=== PATIENT | male | born 1995 | race Caucasian/White ===

== ENCOUNTER 2025-07-15 14:10 | Emergency (ER) | payer MEDICAID, SELFPAY ==
[2025-07-15 14:11] VITALS: BP 125/78; PULSE 75; RESP 18; TEMP 36.2; O2SAT 100; BMI 31.9
--- NOTE | 2025-07-15 14:26 | EKG12_ITS ---
Test Reason : CP THAT COMES AND GOES Blood Pressure : */* mmHG Vent. Rate : 69 BPM Atrial Rate : 69 BPM P-R Int : 90 ms QRS Dur : 118 ms QT Int : 398 ms P-R-T Axes : 46 62 68 degrees QTcB Int : 426 ms Sinus rhythm with short NM Incomplete right bundle branch block Borderline ECG Confirmed by Star Yanez ([id number]), newspaper or periodical editor ROGELIO LIN ([id number]) on 07/16/2025 8:46:05 AM Referred By: MIAH/KAYCE Confirmed By: Star Yanez
--- NOTE | 2025-07-15 14:29 | ED.VIS.CHEST ---
HPI History of Present Illness Chief Complaint: Chest Pain Narrative Narrative: Chief complaint and HPI: 29-year-old male with no significant past medical history other than intermittent chest pain for multiple years presents for evaluation of chest pain. Patient states he intermittently developed sharp chest pain. States he has been seen by multiple people with about a diagnosis. Patient states that he has been under a lot of stress lately and is wondering if it is stress related. It is mostly midsternal. Wax and wanes. Nothing makes it better or worse. He did not take anything for the pain. He denies any fever, chills, shortness of breath URI symptoms, cough, abdominal pain, nausea, vomiting. Denies any recent trauma or surgery. Denies any recent travel. Review of systems: See HPI Medications: As listed on the chart Allergies: As listed on the chart PFSH: Per chart Vital signs: As listed on the chart. Reviewed. Physical exam: Gen: A&O x3, NAD Head: Normocephalic, atraumatic Eyes: No sclera icterus, conjunctiva clear ENT: Moist mucous membranes Neck: Trachea midline, No JVD CV: RRR, no murmurs, no peripheral edema Resp: Lungs CTA BL, no w/r/c GI: Abd soft, non-distended, non-tender, no r/r/g Musc: Full ROM, no deformity Skin: Warm, dry Neuro: Alert, oriented, grossly intact, sensation intact Psych: Cooperative, appropriate mood and affect PFS PFSH Medical History no medical history Allergy/AdvReac Type Severity Reaction Status Date / Time Penicillins Allergy Hives Verified 07/15/25 14:12 Family History no significant family his Surgical History no surgical history Social History Smoking Status: Never smoker EXAM Physical Exam Const Vital Signs: 07/15/25 14:11 07/15/25 14:22 07/15/25 15:10 Temperature 97.1 F L Temperature Source Temporal Pulse Rate 75 64 Respiratory Rate 18 16 Respiratory Effort Normal Non-Labored Blood Pressure 125/78 H 115/82 H Blood Pressure Mean 93 93 Pulse Ox 100 99 Oxygen Delivery Method Room Air 07/15/25 16:00 Temperature Temperature Source Pulse Rate 61 Respiratory Rate 20 H Respiratory Effort Blood Pressure 115/79 Blood Pressure Mean 91 Pulse Ox 100 Oxygen Delivery Method Room Air MDM MDM MDM Narrative Medical decision making narrative: 29-year-old male with no significant past medical history other than intermittent chest pain for multiple years presents for evaluation of chest pain. Patient states he intermittently developed sharp chest pain. States he has been seen by multiple people with about a diagnosis. Patient states that he has been under a lot of stress lately and is wondering if it is stress related. It is mostly midsternal. Wax and wanes. On presentation, patient no acute distress. Differential diagnosis includes but is not limited to myofascial spasm, stress reaction/response, pleurisy, arrhythmia, suspect less likely ACS, PE, pneumothorax, pneumonia. Aspirin ordered. Cardiac workup ordered. CBC unremarkable without leukocytosis or anemia. D-dimer unremarkable. BMP unremarkable. Troponin unremarkable x2. At this point in time, no clear etiology to explain patient's intermittent chest pain. May be secondary to stress reaction. Follow-up with primary care physician. Return precautions explained. He confirmed understand the plan. Patient was discharged home. EKG: Interpreted by me/EM physician: EKG shows normal sinus rhythm with short RI. Heart rate 69. No QT C prolongation. Diagnostic: Interpreted by me/EM physician: Chest x-ray without pneumonia, effusion, pneumonia, cardiomegaly. Radiology in agreement. Impression: 1. Intermittent chest pain 2. History of intermittent chest pain. Lab Data Labs: Laboratory Results - last 24 hr 07/15/25 07/15/25 14:20 16:10 WBC 5.5 RBC 5.27 Hgb 14.5 Hct 43.9 MCV 83.3 MCH 27.5 MCHC 33.0 RDW Std Deviation 38.5 RDW Coeff of Gonzales 12.7 Plt Count 225 MPV 10.0 Immature Gran % (Auto) 0.200 Neut % (Auto) 56.1 Lymph % (Auto) 31.4 Hoke % (Auto) 7.2 Eos % (Auto) 4.0 Baso % (Auto) 1.1 H Absolute Neuts (auto) 3.1 Absolute Lymphs (auto) 1.71 Nucleated RBC % 0 D-Dimer Quant (PE/DVT) < 0.27 L Sodium 139 Potassium 3.5 Chloride 103 Carbon Dioxide 22.8 Anion Gap 13 BUN 14 Creatinine 1.01 Estim Creat Clear Calc 118.65 Est GFR (MDRD) Non-Af 102 BUN/Creatinine Ratio 13.8 Glucose 114 H Calcium 9.5 Troponin T High Sens < 6 Troponin T Hi Sens 2 Hr < 6 Radiography Diagnostic Testing: Clinical Impression(s) from Imaging Studies Chest X-Ray 07/15/25 14:33 IMPRESSION: As above. Reading Location: [id number] Discharge Plan Triage Chief Complaint: Chest Pain ED Provider: Tony Dhillon Dx/Rx/DC Orders Clinical Impression: Chest pain Instructions: ED Chest Pain, Uncertain Cause Primary Care Provider: Care Physician,No Primary Referrals: Karthikeyan Jameson MD [Med Staff - Active Staff, Family Practice] - 3-5 Days Activity Restrictions/Additional Instructions: Follow-up with primary care physician. Return back to ED symptoms change or worsen. Print Language: Hong [place]er Disposition Disposition: Home, Self Care
--- NOTE | 2025-07-15 14:33 | RAD_ITS ---
PROCEDURE: CHEST PA AND LATERAL 07/15/2025 REASON FOR EXAM: CHEST PAIN TECHNIQUE: Procedure Code: RADCXR Modality: DX Procedure: CHEST PA AND LATERAL FINDINGS: The lungs are clear. The cardiomediastinal silhouette appears unremarkable. No acute osseous abnormality. RAD/Chest PA and Lateral IMPRESSION: As above. Reading Location: [id number]
[2025-07-15 14:34] LABS: Hematocrit 43.9 % (40-54); Hemoglobin 14.5 g/dL (13.0-16.5); Immature Granulocytes Count 0.010 X10^3/uL (0.0-0.0); Mean Corp Hgb Conc 33.0 g/dL (32-36); Mean Corpuscular Volume 83.3 fL (80-94); Mean Platelet Vol. 10.0 fl (6.2-12.0); NRBC Flagged by Analyzer 0 % (0-5); Platelet Count 225 K/mm3 (150-450); RBC Distribution Width CV 12.7 % (11.6-14.6); RBC Distribution Width SD 38.5 fl (35.1-43.9); Red Blood Count 5.27 M/mm3 (4.6-6.2); White Blood Count 5.5 K/mm3 (4.4-11.0)
[2025-07-15 14:47] LABS: D-Dimer Quantitative (DVT/PE) < 0.27 FEU/ug/m (0.27-0.49)
[2025-07-15 14:58] LABS: Troponin T High Sensitivity < 6 ng/L (<=22)
[2025-07-15 15:08] LABS: Anion Gap 13 (5-15); BUN 14 mg/dL (4-19); BUN/Creat Ratio 13.8 RATIO (10-20); Calcium,Total 9.5 mg/dL (7.6-11.0); Carbon Dioxide 22.8 mmol/L (21.0-32.0); Chloride 103 mmol/L (98-108); Estimated Creatinine Clearance 118.65 ml/min (50-250); Glucose 114 mg/dL (70-99); Potassium 3.5 mmol/L (3.3-5.1)
[2025-07-15 15:10] VITALS: BP 115/82; PULSE 64; RESP 16; O2SAT 99
[2025-07-15 16:00] VITALS: BP 115/79; PULSE 61; RESP 20; O2SAT 100
--- NOTE | 2025-07-15 16:17 | CM.ED ---
Social work Reason for referral: no PCP/insurance Referral source: case find SW entered patient's room, introducing self and role at [facility]. Patient hesitantly accepted SW visit, though appeared more at ease when SW expressed reason for visit. Patient confirmed lacking a PCP and insurance, stating need to call [facility] soon to apply for Medicaid. Patient accepted the following resources: [facility] Providers accepting new patients, [facility] information, and how to apply for Medicaid form. Patient denied further needs at this time. Gail Seo, HEAD COUNSELOR, LENS CUTTER
[2025-07-15 16:43] LABS: Troponin T High Sens 2 HR < 6 ng/L (<=22)
[2025-07-15 16:51] VITALS: BP 114/76; PULSE 62; RESP 12; TEMP 36.6; O2SAT 100
== END 2025-07-15 16:52 | disposition home or self-care (01) ==
PROVIDERS: Emergency Provider Surgery; Visit Provider Surgery
DX: R07.9 Chest pain, unspecified (principal)
CPT/HCPCS: 71046; 80048; 84484; 85025; 85379; 93005; 99283; A4216

== ENCOUNTER 2025-07-23 19:24 | Emergency (ER) | payer MEDICAID, SELFPAY ==
[2025-07-23 19:25] VITALS: BP 131/83; PULSE 75; RESP 16; TEMP 36.8; O2SAT 99; BMI 30.6
--- NOTE | 2025-07-23 19:30 | EKG12_ITS ---
Test Reason : Blood Pressure : */* mmHG Vent. Rate : 68 BPM Atrial Rate : 68 BPM P-R Int : 84 ms QRS Dur : 118 ms QT Int : 398 ms P-R-T Axes : 41 70 69 degrees QTcB Int : 423 ms Sinus rhythm with short VT Incomplete right bundle branch block Borderline ECG Confirmed by SHILOH BARTON, JULY ([id number]), city editor ROGELIO LIN ([id number]) on 07/28/2025 6:22:58 AM Referred By: Confirmed By: JULY MATAMOROS MD
--- NOTE | 2025-07-23 19:50 | RAD_ITS ---
PROCEDURE: CHEST 1 VIEW (PORTABLE) 07/23/2025 REASON FOR EXAM: CHEST PAIN TECHNIQUE: Frontal view of the chest. COMPARISON: 07/15/2025 FINDINGS: Lungs/Pleura: Clear. Heart/Mediastinum: Normal in size. Bones/Soft tissues: Unremarkable. RAD/Chest 1 View (Portable) IMPRESSION: No acute cardiopulmonary disease. Reading Location: [id number]
[2025-07-23 20:23] LABS: Hematocrit 46.3 % (40-54); Hemoglobin 15.3 g/dL (13.0-16.5); Immature Granulocytes Count 0.040 X10^3/uL (0.0-0.0); Mean Corp Hgb Conc 33.0 g/dL (32-36); Mean Corpuscular Volume 82.8 fL (80-94); Mean Platelet Vol. 10.2 fl (6.2-12.0); NRBC Flagged by Analyzer 0 % (0-5); Platelet Count 275 K/mm3 (150-450); RBC Distribution Width CV 12.9 % (11.6-14.6); RBC Distribution Width SD 38.8 fl (35.1-43.9); Red Blood Count 5.59 M/mm3 (4.6-6.2); White Blood Count 8.6 K/mm3 (4.4-11.0)
--- OUTSIDE RECORDS SUMMARY | 2025-07-23 20:23 | XMS RPT_ITS | CCD ---
Author Organization [facility] Informat ion Partnership [facility] Care Team Providers Care Gas Usage Meter Clerk Name Role Phone Duncan Gonzalez Unavailable Duncan Gonzalez Unavailable Unavailable Anthony Fernandez Unavailable Unavailable Duncan Gonzalez Primary Care Provider DUNCAN GONZALEZ Primary Care Unavailab KARTHIKEYAN Gastelum Attending Duncan Villalpando Primary Care Provider Kaylyn vailable DUNCAN GONZALEZ Primary Care Unavailab DUNCAN Harris Attending Unavailable Unavailable Primary Care Provider UnavailDuncan Oates Primary Care Provider DUNCAN GONZALEZ Primary Care Unavailab RANDOLPH Lane Attending Dami Obando Primary Care Provider [phone] Unavailable Primary Care Provider Dami Obando MD Primary Care Provider Ludwig Gannon DO Primary Care Provider LUDWIG GANNON Primary Care UnavailDuncan Oates MD Primary Care Provider [phone] Ludwig Gannon DO Primary Care Provider Dami Abdi MD Primary Care Provider [phone] Ludwig Gannon DO Primary Care Provider LUDWIG GANNON Primary Care UnavailBRIANDA Landon Attending UnavailLUDWIG Cox Primary Care UnavailLUDWIG Cox Attending Unavailstephanie Abdi MD, Dami Primary Care Provider [phone] Unavailable Primary Care Provider Unavailabl e PCP, NO Primary Care Unavailable SATNAM FRANZ Referring UnavailSATNAM De Los Santos Attending Unavailstephanie e REBECCA BARNEY Attending Unavailable REBECCA BARNEY Referring Unavailable TRINIDAD, PICKTON Primary Care Unavailable SELF, SELF Referring Unavailable RISTOREBECCA Kendall Attending Unavailable TRINIDAD, DAMI Primary Care Unavailable SELF, SELF Referring Unavailable CECY MIGUEL Attending Unavailable TRINIDAD, PICKTON Primary Care Unavailable CHERI SULLIVAN Attending Unavailable SELF, SELF Referring Unavailable TRINIDAD, DAMI Primary Care Unavailable TRINIDAD, PICKTON Primary Care Unavailable JOSEPH ARTHUR Attending Unavailable IVANNA CLOUD Attending Unavailable TRINIDAD, PICKTON Primary Care Unavailable KISHA KEATING Referring Unavailable TRINIDAD, PICKTON Primary Care Unavailable KISHA KEATING Attending Unavailable KISHA KEATING Attending Unavailable RISTOREBECCA Kendall R Referring Unavailable TRINIDAD, PICKTON Primary Care Unavailable Pcp, No Primary Care Provider [phone] No, Physician Primary Care Provider Unavailabl e TEJA VELIZ Attending Amelia siddiqui NO, PHYSICIAN Primary Care Unavailable NO, PHYSICIAN Primary Care Unavailable CADY JONES Attending Unavailable EBEN GREGORIO Attending Unavailab shelia NO, PHYSICIAN Primary Care Unavailable Allergies Allergy Classification Reported Allergen(s) Allergy Type Date of Onset Reaction(s) Facility Penicillins (antibiotic) (1 source) Penicillins Drug Allergy [address] [place] [address] (20 sources) penicillin g; Translations: [PENICILLIN G] Propensity to adverse reactions to drug 6 [facility] Work Phone: (12 sources) Penicillins; Translations: [Penicillins] Propensity to adverse reactions (disorder) 6 [facility] Repository Medications Current Medications Medication Drug Class(es) Dates Sig (Normalized) Sig (Original) [id number] 200 actuat albuterol 0.09 mg/actuat metered dose inhaler (14 sources) beta2-Adrenergic Agonist Start: 06-08-2020 End: 06-07-2021 take 2 puff(s) by inhalation every four hours as needed for wheezing albuterol 108 (90 Base) MCG/ACT Aero Soln inhaler Inhale 2 puffs every 4 hours as needed for Wheezing. 1 Inhaler 0 06/08/2020 Active albuterol 108 (90 Base) MCG/ACT Aero Soln inhaler (1 source) Start: 06-08-2020 take 2 puff(s) by inhalation every four hours as needed for wheezing albuterol 108 (90 Base) MCG/ACT Aero Soln inhaler Inhale 2 puffs every 4 hours as needed for Wheezing. 1 Inhaler 0 06/08/2020 Active albuterol 90 mcg/actuation inhaler (2 sources) Start: 06-08-2020 take 2 puff(s) by inhalation every four hours as needed albuterol 90 mcg/actuation inhaler Inhale 2 puffs every 4 (four) hours as needed . 0 06/08/2020 Active azithromycin 250 mg oral tablet (7 sources) Macrolide Antimicrobial Start: 06-19-2023 End: 06-24-2023 Azithromycin 250 MG tablet Take by mouth 2 tablets (500 mg) on Day 1, then 1 tablet (250 mg) daily on Days 2-5 6 tablet 0 06/19/2023 06/24/2023 Active Start: 10-12-2021 End: 10-12-2021 azithromycin 250 MG tablet T js by mouth 2 tablets (500 mg) on Day 1, then 1 tablet (250 mg) daily on Days 2-5 6 tablet 0 10/12/2021 10/12/2021 Active Start: 10-18-2018 End: 10-21-2018 azithromycin (ZITHROMAX) 500 MG tablet Indications: Acute non-recurrent maxillary sinusitis Take 1 (one) tablet (500 mg total) by mouth daily Take 1 tablet daily for 3 days. for 3 days . 3 tablet 0 10/18/2018 10/21/2018 Active Start: 12-18-2017 End: 12-22-2017 azithromycin (ZITHROMAX) tab let 500 mg Start: 02-02-2017 End: 03-27-2017 azithromycin (ZITHROMAX) 250 MG tablet 2 p.o. initially and 1 p.o. daily. 6 tablet 0 02/02/2017 03/27/2017 Discontinued benzonatate 100 mg oral capsule (1 source) Non-narcotic Antitussive Start: 06-19-2023 take 1 capsule by mouth three times daily as needed for cough benzonatate 100 MG capsule Take 1 capsule by mouth 3 times daily as needed for Cough. 20 capsule 0 06/19/2023 Active cephalexin 250 mg oral capsule (2 sources) Cephalosporin Antibacterial Start: 12-13-2018 End: 12-23-2018 take 1 capsule by mouth four times daily cephALEXin (KEFLEX) 250 MG capsule Take 1 (one) capsule (250 mg total) by mouth 4 (four) times a day for 10 days . 40 capsule 0 12/13/2018 12/23/2018 Active Start: 12-13-2018 End: 12-13-2018 cephALEXin (KEFLEX) capsule 500 mg cyclobenzaprine hydrochloride 10 mg oral tablet (12 sources) Muscle Relaxant Start: 11-18-2020 take 1 tablet by mouth three times daily as needed for muscle spasms cyclobenzaprine 10 MG tablet Take 1 tablet by mouth 3 times daily as needed for Muscle spasms. 21 tablet 0 11/18/2020 Active Start: 01-17-2018 take 1 tablet by [facility] three times daily as needed for muscle spasms cyclobenzaprine (FLEXERIL) 10 MG tablet Take 1 (one) tablet (10 mg total) by mouth 3 (three) times a day as needed for muscle spasms. 15 tablet 0 01/17/2018 Active doxycycline hyclate 100 mg oral tablet (5 sources) Tetracycline-class Drug Start: 06-08-2021 End: 06-15-2021 take 1 tablet by mouth twice daily doxycycline hyclate (VIBRA-TABS) 100 MG tablet Indications: Sinus congestion Take 1 (one) tablet (100 mg total) by mouth 2 (two) times a day for 7 days . 14 tablet 0 06/08/2021 06/15/2021 Active Start: 11-29-2018 End: 03-21-2019 take 1 tablet by mouth twice daily doxycycline hyclate (VIBRA-TABS) 100 MG tablet Indications: Acute prostatitis Take 1 (one) tablet (100 mg total) by mouth 2 (two) times a day . 20 tablet 0 11/29/2018 03/21/2019 Discontinued (Therapy completed) erythromycin 0.005 mg/mg ophthalmic ointment (5 sources) Macrolide, Macrolide Antimicrobial Start: 02-10-2022 apply 3.5 g into the eye(s) four times daily erythromycin 5 MG/GM Ointment ophthalmic ointment 1/2 inch to affected eye(s) QID for 5-7 days 3.5 g 0 02/10/2022 Active ibuprofen 800 mg oral tablet (19 sources) Nonsteroidal Anti-inflammatory Drug Start: 05-30-2024 End: 06-29-2024 take 1 tablet by mouth every six hours as needed for pain ibuprofen (ADVIL,MOTRIN) 800 MG tablet Take 1 (one) tablet (800 mg total) by mouth every 6 (six) hours as needed for pain . 30 tablet 05/30/2024 06/29/2024 Active Start: 01-17-2018 take 1 tablet by luly th every eight hours as needed ibuprofen (ADVIL,MOTRIN) 800 MG tablet Take 1 (one) tablet (800 mg total) by mouth every 8 (eight) hours as needed for pain. 15 tablet 0 01/17/2018 Active Start: 05-18-2016 End: 03-27-2017 take 1 tablet by mouth every six hours ibuprofen (ADVIL,MOTRIN) 600 MG tablet Take 1 tablet (600 mg total) by mouth every 6 (six) hours as needed for pain. 30 tablet 0 05/18/2016 03/27/2017 Discontinued End: 12-16-2022 ibuprofen 200 mg cap Take by mouth . 0 12/16/2022 Discontinued IBUPROFEN PO Luke e by mouth. 0 Active End: 11-24-2018 take 1 tablet by mouth every six hours as needed ibuprofen (ADVIL,MOTRIN) 400 MG tablet Take 400 mg by mouth every 6 (six) hours as needed for pain. 0 11/24/2018 Discontinued meloxicam 15 mg oral tablet (2 sources) Nonsteroidal Anti-inflammatory Drug Start: 12-20-2022 End: 01-19-2023 take 1 tablet by mouth once daily Meloxicam 15 MG tablet Take 1 tablet by mouth daily. 30 tablet 0 12/20/2022 Active naproxen 250 mg oral tablet (12 sources) Nonsteroidal Anti-inflammatory Drug Start: 11-19-2020 naproxen (NAPROSYN) tablet 500 mg Start: 11-18-2020 take 1 tablet by luly th twice daily as needed naproxen 500 MG tablet Take 1 tablet by mouth 2 times daily as needed. 30 tablet 0 11/18/2020 Active ofloxacin 3 mg/ml ophthalmic solution (2 sources) Quinolone Antimicrobial Start: 02-07-2022 End: 02-14-2022 take 1 drop(s) into the eye(s) every six hours ofloxacin 0.3 % ophthalmic solution Place 1 drop in left eye every 6 hours for 7 days. 3 mL 0 02/07/2022 02/14/2022 Active predniSONE 20 mg oral tablet (10 sources) Start: 12-07-2022 End: 12-12-2022 take 2 tablets by mouth once daily predniSONE 20 MG tablet Take 2 tablets by mouth daily for 5 days. 10 tablet 0 12/07/2022 12/12/2022 Active Start: 02-07-2022 End: 02-12-2022 take 1 tablet by mouth once daily predniSONE 50 MG tablet Take 1 tablet by mouth daily for 5 days. 5 tablet 0 02/07/2022 02/12/2022 Active Start: 12-25-2017 End: 12-30-2017 take 3 tablets by mouth once daily predniSONE (DELTASONE) 20 MG tablet Take 3 (three) tablets (60 mg total) by mouth daily for 5 days. 15 tablet 0 12/25/2017 12/30/2017 Active Start: 12-25-2017 End: 12-25-2017 predniSONE (DELTASONE) table t 60 mg Start: 03-27-2017 End: 03-27-2017 take 1 tablet by mouth once predniSONE (DELTASONE) tab let 40 mg 40 mg, Oral, Once, 03/27/17 at 2310, For 1 dose Given 03/27/2017 23:25 EDT 40 mg Start: 03-27-2017 End: 12-25-2017 predniSONE (DELTASONE) 10 MG tablet Take 4 tablets daily for 3 days, then 3 tablets daily for 3 days, then 2 tablets daily for 3 days, then 1 tablet daily for 3 days. 30 tablet 0 03/27/2017 12/25/2017 Discontinued Start: 03-27-2017 predniSONE (DE LTASONE) 10 MG tablet Take 4 tablets daily for 3 days, then 3 tablets daily for 3 days, then 2 tablets daily for 3 days, then 1 tablet daily for 3 days. 30 tablet 0 03/27/2017 Active Completed/Discontinued Medications Medication Drug Class(es) Dates Sig (Normalized) Sig (Original) aspirin 81 mg chewable tablet (1 source) Platelet Aggregation Inhibitor, Nonsteroidal Anti-inflammatory Drug Start: 06-08-2020 End: 06-08-2020 aspirin chewable tablet 324 mg Start: 06-08-2020 End: 06-08-2020 aspirin chewable tablet 324 mg fluticasone propionate 0.05 mg/actuat metered dose nasal spray (4 sources) Corticosteroid Start: 03-21-2019 End: 06-19-2020 take 2 spray(s) nasal route once daily fluticasone propionate (FLONASE ALLERGY RELIEF) 50 mcg/actuation nasal spray Indications: Rhinorrhea Instill 2 (two) sprays into each nostril daily . 16 g 0 03/21/2019 06/19/2020 Discontinued (Therapy completed) 1 ml ketorolac tromethamine 15 mg/ml cartridge (1 source) Nonsteroidal Anti-inflammatory Drug, Cyclooxygenase Inhibitor Start: 06-08-2020 End: 06-08-2020 ketorolac (TORADOL) injection 15 mg Start: 06-08-2020 End: 06-08-2020 ketorolac (TORADOL) injectio n 15 mg 3 ml sodium chloride 9 mg/ml injection (2 sources) Start: 06-08-2020 End: 06-08-2020 Normal Saline Flush 0.9% injection 5 mL Start: 09-11-2018 End: 09-11-2018 sodium chloride (PF) (NS) fl ush 5 mL Problems Active Problems Problem Classification Problem Date Documented Da te Episodic/Chronic Crushing injury or internal injury (1 source) Crush injury of left great toe; Translations: [Crushing injury of left great toe, initial encounter] Episodic Fracture of lower limb (2 sources) Closed fracture of distal phalanx of great toe; Translations: [Nondisplaced fracture of distal phalanx of right great toe, initial encounter for closed fracture] Onset: 06-14-2024 06-16-2024 Episodic Genitourinary symptoms and ill-defined conditions (3 sources) Increased frequency of urination; Translations: [Frequency of micturition] Onset: 11-24-2018 Episodic Headache; including migraine (2 sources) Headache; including migraine; Translations: [Headache, unspecified] Onset: 08-22-2023 Inflammation; infection of eye (except that caused by tuberculosis or sexually transmitteddisease) (2 sources) Acute infectious conjunctivitis; Translations: [Unspecified acute conjunctivitis, left eye] Episodic Inflammatory conditions of male genital organs (1 source) Acute prostatitis; Translations: [Acute prostatitis] Episodic Open wounds of extremities (1 source) Laceration of finger; Translations: [Laceration of left ring finger without foreign body without damage to nail, initial encounter] Episodic Open wounds of extremities (2 sources) Puncture wound without foreign body, right foot, initial encounter; Translations: [Puncture wound without foreign body, right foot, initial encounter] Onset: 03-18-2025 Episodic Other connective tissue disease (1 source) Pain in hallux; Translations: [Pain in left toe(s)] Episodic Other connective tissue disease (2 sources) Pain of toe of left foot; Translations: [Pain in left toe(s)] Episodic Other connective tissue disease (2 sources) Pain in finger of left hand; Translations: [Pain in left finger(s)] Episodic Other hereditary and degenerative nervous system conditions (20 sources) Essential tremor; Translations: [Essential tremor] Onset: 02-09-2016 02-09-2016 Chronic Other lower respiratory disease (2 sources) Hemoptysis; Translations: [Hemoptysis] Onset: 09-11-2018 Episodic Other lower respiratory disease (1 source) Hemoptysis; Translations: [Hemoptysis] Onset: 09-11-2018 Episodic Other nutritional; endocrine; and metabolic disorders (9 sources) Obese class I; Translations: [Obesity, unspecified] Onset: 10-12-2021 10-12-2021 Chronic Other upper respiratory disease (2 sources) Nasal discharge; Translations: [Rhinorrhea] Episodic Other upper respiratory infections (8 sources) Acute upper respiratory infection; Translations: [Acute upper respiratory infection, unspecified] Onset: 09-11-2018 06-19-2023 Episodic Otitis media and related conditions (1 source) Perforation of right tympanic membrane; Translations: [Unspecified perforation of tympanic membrane, right ear] Episodic Residual codes; unclassified (3 sources) Tobacco user; Translations: [Tobacco Abuse] Onset: 06-19-2020 06-19-2020 Chronic Residual codes; unclassified (3 sources) Disturbance in sleep behavior; Translations: [Sleep disorder, unspecified] Episodic Residual codes; unclassified (1 source) Family history of hereditary disease; Translations: [Family history of other congenital malformations, deformations and chromosomal abnormalities] 07-20-2023 Episodic Residual codes; unclassified (1 source) Family history of other congenital malformations, deformations and chromosomal abnormalities; Translations: [Family history of other congenital malformations, deformations and chromosomal abnormalities] Onset: 07-28-2023 Episodic Residual codes; unclassified (1 source) Carrier of cystic fibrosis gene mutation; Translations: [Cystic fibrosis carrier] Onset: 10-10-2023 10-10-2023 Episodic Skin and subcutaneous tissue infections (1 source) Cellulitis of right lower limb; Translations: [Cellulitis of foot, right] Episodic Substance-related disorders (4 sources) Tobacco dependence syndrome; Translations: [Nicotine dependence, unspecified, uncomplicated] Onset: 06-19-2020 Chronic Unclassified (4 sources) Patient encounter status; Translations: [Well adult exam] Onset: 06-19-2020 06-19-2020 Past or Other Problems Problem Classification Problem Date Documented Date Episodic/Chronic Administrative/socia l admission (20 sources) Patient encounter status; Translations: [Tobacco abuse counseling] Onset: 06-19-2020 Resolved: 12-15-2022 06-19-2020 Episodic Contraceptive and procreative management (11 sources) Contraception status; Translations: [Encounter for sterilization] Onset: 08-27-2020 Resolved: 12-15-2022 08-27-2020 Episodic Headache; including migraine (2 sources) Headache; Translations: [Headache] Onset: 01-21-2023 Episodic Immunizations and screening for infectious disease (4 sources) Encounter for screening for human immunodeficiency virus [HIV]; Translations: [Encounter for screening for other viral diseases] Onset: 02-18-2022 Episodic Nausea and vomiting (2 sources) Vomiting; Translations: [Vomiting] Onset: 01-21-2023 Episodic Nonspecific chest pain (1 source) Chest pain; Translations: [Other chest pain] Episodic Other connective tissue disease (2 sources) Pain in left finger(s); Translations: [Pain in left finger(s)] Onset: 12-20-2022 Episodic Other injuries and conditions due to external causes (2 sources) Other injury of unspecified body region, initial encounter; Translations: [Other injury of unspecified body region, initial encounter] Onset: 12-20-2022 Episodic Other screening for suspected conditions (not mental disorders or infectious disease) (4 sources) Encounter for screening for diabetes mellitus; Translations: [Encounter for screening for lipoid disorders] Onset: 02-18-2022 Episodic Other upper respiratory disease (12 sources) Congestion of nasal sinus; Translations: [Nasal congestion] Onset: 06-07-2021 Resolved: 12-15-2022 Episodic Residual codes; unclassified (2 sources) Chronic back pain ; Translations: [Chronic back pain] Onset: 06-19-2020 06-19-2020 Episodic Residual codes; unclassified (11 sources) Tobacco user; Translations: [Tobacco use] Onset: 06-19-2020 06-19-2020 Episodic Residual codes; unclassified (2 sources) Sleep disorder, unspecified; Translations: [Sleep disorder, unspecified] Onset: 02-18-2022 Episodic Spondylosis; intervertebral disc disorders; other back problems (16 sources) Chronic low back pain; Translations: [Chronic back pain ] Onset: 06-19-2020 06-19-2020 Episodic Sprains and strains (3 sources) Low back strain; Translations: [Sprain of unspecified ligament of right ankle, initial encounter] Onset: 01-05-2023 Episodic Superficial injury; contusion (4 sources) Contusion of finger; Translations: [Subungual hematoma of great toe of left foot] Onset: 05-30-2024 Episodic Unclassified (1 source) Left wrist pain Results Test Name Value Interpretation Reference Range Facil ity ED Prov Noteon 03-18-2025 ED Prov Note ED PROVIDER NOTE [facility] EMERGENCY DEPARTMENT NAME: Lesley Heller AGE: 29 y.o. : 1995 VISIT DATE: 03/18/2025 CSN: [id number] PCP: No, Physician Chief Complaint Patient presents with Foot Injury Triage note: Pt states he stepped on an old nail and it went through his boot about 30 mins ago. Last tetanus shot reported in 2013 Foot Injury Past Medical History: Diagnosis Date ADHD 13 yo stopped taking it Back pain Dyslexia Heart murmur Knee pain Right forearm fracture 1st grade Toeing-in Tremors of nervous system Past Surgical History: Procedure Laterality Date ADENOIDECTOMY TONSILLECTOMY Family History Problem Relation Age of Onset Hypertension Mother Restless legs syndrome Mother Diabetes Maternal Grandmother Heart disease Paternal Grandfather Social History [1] No current outpatient medications on file prior to encounter. Allergies[2] Review of Systems Patient Vitals for the past 24 hrs: BP Temp Temp src Pulse Resp SpO2 Height Weight 03/18/25 2230 (!) 155/74 98.1 degrees F (36.7 degrees C) Temporal 88 18 97 % 5' 8 97.5 kg (215 lb) Physical Exam Vitals and nursing note reviewed. Constitutional: General: He is awake. He is not in acute distress. Appearance: Normal appearance. He is well-developed. He is not toxic-appearing or diaphoretic. Eyes: Extraocular Movements: Extraocular movements intact. Comments: PER, unremarkable size Neck: Trachea: No tracheal deviation. Musculoskeletal: Cervical back: Normal range of motion. Feet: Pulmonary: Effort: Pulmonary effort is normal. No respiratory distress. Feet: Comments: Puncture wound is small. There is no bleeding or tissue loss. No significant tenderness to palpation. No other injury. Skin: General: Skin is warm and dry. Capillary Refill: Capillary refill takes 2 to 3 seconds. Findings: Lesion present. Neurological: General: No focal deficit present. Mental Status: He is alert. Motor: No abnormal muscle tone. Coordination: Coordination normal. Comments: Awake, alert and appropriate. Psychiatric: Mood and Affect: Mood normal. Behavior: Behavior normal. Behavior is cooperative. Laboratory & Radiographic Imaging (if done): No results found for this visit on 03/18/25. No orders to display Procedures Medical Decision Making The patient has been informed that they may have pre-hypertension or hypertension based on a blood pressure reading in the Emergency Department. I recommend that the patient call the primary care provider listed on their discharge instructions or a physician of their choice as soon as possible to arrange follow-up in the next 4 weeks for further evaluation of possible pre-hypertension or hypertension. . Clinical Impression: 1. Puncture wound of right foot, initial encounter ED Disposition ED Disposition Discharge Condition Stable Comment Lesley Heller discharged to home/self care in stable condition. Follow-up Information 1. [facility] Emergency Department. Specialty: Emergency Medicine Why: As needed [address] [facility] [id number] Contact information for after-discharge care Follow-up information has not been specified. New Prescriptions ciprofloxacin HCl (CIPRO) 500 MG tablet Take 1 (one) tablet (500 mg total) by mouth 2 (two) times a day for 3 days . [1] Social History Socioeconomic History Marital status: Tobacco Use Smoking status: Every Day Current packs/day: 0.50 Average packs/day: 0.5 packs/day for 11.0 years (5.5 ttl pk-yrs) Types: Cigarettes Smokeless tobacco: Former Types: Chew Vaping Use Vaping status: Every Day Substances: Nicotine Devices: Disposable Substance and Sexual Activity Alcohol use: Yes Alcohol/week: 1.0 - 2.0 standard drink of alcohol Types: 1 - 2 Cans of beer per week Comment: social drinker, every 3 months Drug use: No Sexual activity: Yes Partners: Female Social Drivers of Health Financial Resource Strain: Low Risk (02/18/2022) Overall Financial Resource Strain (CARDIA) Difficulty of Paying Living Expenses: Not hard at all Food Insecurity: Food Insecurity Present (02/18/2022) Hunger Vital Sign Worried About Running Out of Food in the Last Year: Sometimes true Ran Out of Food in the Last Year: Sometimes true Transportation Needs: No Transportation Needs (02/18/2022) PRAPARE - Transportation Lack of Transportation (Medical): No Lack of Transportation (Non-Medical): No Social Connections: Moderately Isolated (02/18/2022) Social Connection and Isolation Panel [NHANES] Frequency of Communication with Friends and Family: More than three times a week Frequency of Social Gatherings with Friends and Family: More than three times a week Attends [employer] Services: Never Active Member of Clubs or Organizations: No Attends Club or Organization Meetings: (more content not included)... Normal [facility] ED Prov Noteon 05-30-2024 ED Prov Note ED PROVIDER NOTE [facility] EMERGENCY DEPARTMENT NAME: Lesley Heller AGE: 28 y.o. : 1995 VISIT DATE: 05/30/2024 CSN: [id number] PCP: No, Physician Chief Complaint Patient presents with Toe Injury HPI 28 years old white male presented to the emergency room with toe pain in his right foot after he kicked a table because he was angry denies any injuries anywhere else denies any open wound no active bleeding Past Medical History: Diagnosis Date ADHD 13 yo stopped taking it Back pain Dyslexia Heart murmur Knee pain Right forearm fracture 1st grade Toeing-in Tremors of nervous system Past Surgical History: Procedure Laterality Date ADENOIDECTOMY TONSILLECTOMY Family History Problem Relation Age of Onset Hypertension Mother Restless legs syndrome Mother Diabetes Maternal Grandmother Heart disease Paternal Grandfather Social History Socioeconomic History Marital status: Tobacco Use Smoking status: Every Day Current packs/day: 0.50 Average packs/day: 0.5 packs/day for 11.0 years (5.5 ttl pk-yrs) Types: Cigarettes Smokeless tobacco: Former Types: Chew Vaping Use Vaping status: Every Day Substances: Nicotine Devices: Disposable Substance and Sexual Activity Alcohol use: Yes Alcohol/week: 1.0 - 2.0 standard drink of alcohol Types: 1 - 2 Cans of beer per week Comment: social drinker, every 3 months Drug use: No Sexual activity: Yes Partners: Female Social Determinants of Health Financial Resource Strain: Low Risk (02/18/2022) Overall Financial Resource Strain (CARDIA) Difficulty of Paying Living Expenses: Not hard at all Food Insecurity: Food Insecurity Present (02/18/2022) Hunger Vital Sign Worried About Running Out of Food in the Last Year: Sometimes true Ran Out of Food in the Last Year: Sometimes true Transportation Needs: No Transportation Needs (02/18/2022) PRAPARE - Transportation Lack of Transportation (Medical): No Lack of Transportation (Non-Medical): No Social Connections: Moderately Isolated (02/18/2022) Social Connection and Isolation Panel [NHANES] Frequency of Communication with Friends and Family: More than three times a week Frequency of Social Gatherings with Friends and Family: More than three times a week Attends Catholic Services: Never Active Member of Clubs or Organizations: No Attends Club or Organization Meetings: Never Marital Status: No current outpatient medications on file prior to encounter. Allergies Allergen Reactions Penicillin G Hives Review of Systems All other systems reviewed and are negative. Patient Vitals for the past 24 hrs: BP Temp Temp src Pulse Resp SpO2 Height Weight 05/30/24 0138 131/89 98.6 degrees F (37 degrees C) Temporal 80 16 99 % 5' 8 104.3 kg (230 lb) Physical Exam Cardiovascular: Rate and Rhythm: Normal rate and regular rhythm. Pulses: Normal pulses. Heart sounds: Normal heart sounds. Musculoskeletal: Comments: Right foot no obvious deformity no swelling has little bit bruises and tenderness on palpation of the third and fourth toe no obvious deformity has intact neurovascular system Pulmonary: Effort: Pulmonary effort is normal. Breath sounds: Normal breath sounds. Skin: General: Skin is warm. Coloration: Skin is not jaundiced. Findings: Bruising present. Laboratory & Radiographic Imaging (if done): No results found for this visit on 05/30/24. XR Foot Right 3+ Views (Standard) (Results Pending) Procedures Medical Decision Making Patient was angry and had the disc with right foot has pain in the right third and fourth toe otherwise no obvious injury anywhere else in his body physical Exam Cardiovascular: Rate and Rhythm: Normal rate and regular rhythm. Pulses: Normal pulses. Heart sounds: Normal heart sounds. Musculoskeletal: Comments: Right foot no obvious deformity no swelling has little bit bruises and tenderness on palpation of the third and fourth toe no obvious deformity has intact neurovascular system Pulmonary: Effort: Pulmonary effort is normal. Breath sounds: Normal breath sounds. Skin: General: Skin is warm. Coloration: Skin is not jaundiced. Findings: Bruising present. Amount and/or Complexity of Data Reviewed Discussion of management or test interpretation with external provider(s): Contusion right foot The patient has been informed that they may have pre-hypertension or hypertension based on a blood pressure reading in the Emergency Department. I recommend that the patient call the primary care provider listed on their discharge instructions or a physician of their choice as soon as possible to arrange follow-up in the next 4 weeks for further evaluation of possible pre-hypertension or hypertension. . Clinical Impression: 1. Contusion of right foot, initial encounter ED Disposition ED Disposition Discharge Condition S (more content not included)... Normal [facility] XR FOOT RIGHT 3+ VIEWS (CINTHIA JOSHI)on 05-30-2024 XR FOOT RIGHT 3+ VIEWS (STANDARD) EXAMINATION: XR FOOT RIGHT 3+ VIEWS (STANDARD) 05/30/2024 2:00 am HISTORY: toe injury Injury/Trauma or Illness?:Injury/Tr auma How long have you had these symptoms (acute/chronic)?:A cute Reason for exam?:pt kicked a couch yesterday; pain and bruising to 3rd and 4th toes History of cancer?:unk Surgeries, chemotherapy, or radiation?:unk [id number] Contusion of right foot, initial encounter COMPARISON: Right foot radiographs dated December 13, 2018. TECHNIQUE: Right foot, 3 views. FINDINGS: There is a nondisplaced intra-articular fracture through the base of the right great toe distal phalanx laterally. There is no evidence of dislocation of the right foot. Bone mineralization is normal. The articular surfaces and joint spaces of the right foot are well preserved. There is no evidence of osseous erosion or destruction of the visualized osseous structures of the right foot. There is mild soft tissue swelling about the right great toe. IMPRESSION: 1. There is a nondisplaced intra-articular fracture through the base of the right great toe distal phalanx laterally. There is mild soft tissue swelling about the right great toe. Workstation ID: [id number] Dictated by: SHIVAM PEREA V on Ricarda May 30, 2024 2:43:43 AM EDT Transcribed by: SHIVAM PEREA V on Ricarda May 30, 2024 2:43:43 AM EDT Finalized by: SHIVAM PEREA V on [facility] May 30, 2024 2:43:43 AM EDT Normal [facility] Comment on above: Order Comment: Injur y/Trauma or Illness?:Injury/Trauma How long have you had these symptoms (acute/chronic)?:Acute Reason for exam?:pt kicked a couch yesterday; pain and bruising to 3rd and 4th toes History of cancer?:unk Surgeries, chemotherapy, or radiation?:unk Type of Exam?:Initial Mechanism of injury?:kicking CT HEAD WITHOUT CONTRASTon 0 08-22-2023 CT HEAD WITHOUT CONTRAST CLINICAL INDICATION: sudden onset head/post scalp pain, neuro intact EXAM DESCRIPTION: CT HEAD WITHOUT CONTRAST 08/22/2023 7:47 am COMPARISON: No priors/comparison/ additional images are available TECHNIQUE: Multiple contiguous 5 mm axial sections were obtained through the brain without contrast material. Dose modulation, iterative reconstruction, and/or weight based dosing was utilized when appropriate to reduce radiation dose to as low as reasonably achievable. FINDINGS: Cisternal spaces are normal. No hemorrhage hematoma or mass is identified. Ortiz-white interface is normal. Osseous structures are unremarkable. Scalp soft tissues are unremarkable. Cranial cervical junction is normal. IMPRESSION: Negative Normal [facility] Comment on above: Order Comment: Vet n o XR FINGER 2ND LEFTon 023 XR FINGER 2ND LEFT CLINICAL INDICATION: fx mgmt EXAM DESCRIPTION: XR FINGER 2ND LEFT 12/20/2022 9:44 am COMPARISON: 12/07/2022 TECHNIQUE: Three views left index finger FINDINGS: Visualized osseous structures are intact with no focal destructive osseous lesion or evidence for fracture. There is no soft tissue calcification or radiopaque foreign body. IMPRESSION: No radiographic evidence to suggest acute osseous abnormality. Normal [facility] Comment on above: Order Comment: Vet n o XR Finger second - left View son 12-20-2022 IMPRESSION: No radiographic evidence to suggest acute osseous abnormality. RADIOLOGY CLINICAL INDICATION: fx mgmt EXAM DESCRIPTION: XR FINGER 2ND LEFT 12/20/2022 9:44 am COMPARISON: 12/07/2022 TECHNIQUE: Three views left index finger FINDINGS: Visualized osseous structures are intact with no focal destructive osseous lesion or evidence for fracture. There is no soft tissue calcification or radiopaque foreign body. RADIOLOGY Lesley Londono MD - 12/20/2022 CLINICAL INDICATION: fx mgmt EXAM DESCRIPTION: XR FINGER 2ND LEFT 12/20/2022 9:44 am COMPARISON: 12/07/2022 TECHNIQUE: Three views left index finger FINDINGS: Visualized osseous structures are intact with no focal destructive osseous lesion or evidence for fracture. There is no soft tissue calcification or radiopaque foreign body. IMPRESSION IMPRESSION: No radiographic evidence to suggest acute osseous abnormality. [employer] Phone: Radiology Study observation (narrative) [facility] [place] Phone: XR Finger second - left View sOrdered By: Lesley Londono on 12-20-2022 [facility] [place] Phone: POC Urinalysis Dipstick, Aut oOrdered By: Kylee Duong on 12-16-2022 Bilirubin Ql (U) Negative Negative [facility] Glucose Ql (U) Negative Normal, Negat cole mg/dL [facility] Hemoglobin Ql (U) Negative Negative [facility] Interpretation and review of laboratory results Abnormal [facility] Ketones Ql (U) Negative Negative mg/dL [facility] Leukocyte esterase Test strip Ql (U) Negative Negative [facility] Nitrite Ql (U) Negative Negative [facility] pH (U) 5.5 [pH] 5.0 - 7.0 [facility] Protein Ql (U) Negative Negative mg/dL [facility] Specific gravity (U) [Rel density] 1.030 Abnormal 1.005 - 1.025 [facility] Urobilinogen Qn (U) 0.2 mg/dL <2.0, 0. 2, Normal, Negative, 1.0, 2.0, <1.[address] [facility] XR FINGER 2ND LEFTon 023 XR FINGER 2ND LEFT CLINICAL INDICATION: 3 months left finger pain with no injury EXAM DESCRIPTION: XR FINGER 2ND LEFT 12/07/2022 8:15 pm COMPARISON: No comparison studies. TECHNIQUE: Three views left next finger. FINDINGS: Visualized osseous structures are intact with no focal destructive osseous lesion or evidence for fracture. There is no soft tissue calcification or radiopaque foreign body. IMPRESSION: No radiographic evidence to suggest acute osseous abnormality. Normal [facility] Comment on above: Order Comment: Vet n o XR Finger second - left View son 12-07-2022 IMPRESSION: No radiographic evidence to suggest acute osseous abnormality. RADIOLOGY CLINICAL INDICATION: 3 months left finger pain with no injury EXAM DESCRIPTION: XR FINGER 2ND LEFT 12/07/2022 8:15 pm COMPARISON: No comparison studies. TECHNIQUE: Three views left next finger. FINDINGS: Visualized osseous structures are intact with no focal destructive osseous lesion or evidence for fracture. There is no soft tissue calcification or radiopaque foreign body. RADIOLOGY Lesley Londono MD - 12/07/2022 CLINICAL INDICATION: 3 months left finger pain with no injury EXAM DESCRIPTION: XR FINGER 2ND LEFT 12/07/2022 8:15 pm COMPARISON: No comparison studies. TECHNIQUE: Three views left next finger. FINDINGS: Visualized osseous structures are intact with no focal destructive osseous lesion or evidence for fracture. There is no soft tissue calcification or radiopaque foreign body. IMPRESSION IMPRESSION: No radiographic evidence to suggest acute osseous abnormality. [employer] Phone: Radiology Study observation (narrative) [employer] Phone: XR Finger second - left View sOrdered By: Lesley Londono on 12-07-2022 [employer] Phone: XR Foot - left 3 Viewson IMPRESSION: No radiographic evidence to suggest acute osseous abnormality. RADIOLOGY CLINICAL INDICATION: Crush injury EXAM DESCRIPTION: XR FOOT LEFT 3 VIEWS 11/16/2021 10:32 am COMPARISON: 02/13/2021 TECHNIQUE: Three views left foot FINDINGS: Visualized osseous structures are intact with no focal destructive osseous lesion or evidence for fracture. There is no soft tissue calcification or radiopaque foreign body. RADIOLOGY Lesley Londono MD - 11/16/2021 CLINICAL INDICATION: Crush injury EXAM DESCRIPTION: XR FOOT LEFT 3 VIEWS 11/16/2021 10:32 am COMPARISON: 02/13/2021 TECHNIQUE: Three views left foot FINDINGS: Visualized osseous structures are intact with no focal destructive osseous lesion or evidence for fracture. There is no soft tissue calcification or radiopaque foreign body. IMPRESSION IMPRESSION: No radiographic evidence to suggest acute osseous abnormality. [facility] Radiology Study observation (narrative) [facility] XR Foot - left 3 ViewsOrdere d By: Lesley Londono on 11-16-2021 [facility] Work Phone: COVID-19, MOLECULARon 2020 SARS-CoV-2 (COVID-19) RNA MARCIO+probe Ql (Unsp spec) Not detected Normal Not Detected [facility] Comment on above: Result Comment: This test was performed under the FDA's Emergency Use Authorization (EUA). Testing was performed using the Heather SARS-CoV-2 RT-PCR assay on the [employer] Heather 6800 System. This test has not been approved for use in asymptomatic patients and its performance in this patient population has not been evaluated. Negative results do not rule out the presence of SARS-CoV-2/COVID-19. Fact sheets for this EUA can be found at the following links: For Healthcare Providers: https://www.fda.gov/media/299584/download For Patients: https://www.fda.gov/media/123876/download Performed By: #### L [id number] #### [facility] [address] [place] [address] Igor Cottrell M.D. [id number] Laboratory - Microbiology an d Antimicrobial susceptibilityOrdered By: Anthony Ware on 06-07-2021 SARS-CoV-2 (COVID-19) RNA MARCIO+probe Ql (Resp) Not detected Not Detected [facility] Comment on above: This test was perfor med under the FDA's Emergency Use Authorization (EUA). Testing was performed using the Heather SARS-CoV-2 RT-PCR assay on the [employer] Heather 6800 System. This test has not been approved for use in asymptomatic patients and its performance in this patient population has not been evaluated. Negative results do not rule out the presence of SARS-CoV-2/COVID-19. Fact sheets for this EUA can be found at the following links: For Healthcare Providers: https://www.fda.gov/media/782156/download For Patients: https://www.fda.gov/media/768191/download SARS-CoV-2 (COVID-19) RNA NA A+probe Ql (Resp)Ordered By: Anthony Ware on 06-07-2021 Interpretation and review of laboratory results Normal [facility] XR FOOT LEFT 3 VIEWSOrdered By: Ludwig Polanco on 02-14-2021 IMPRESSION: No acute bony abnormality. [facility] CLINICAL INDICATION: Trauma EXAM DESCRIPTION: XR FOOT LEFT 3 VIEWS 02/13/2021 11:12 pm COMPARISON: No priors/comparison/ additional images are available TECHNIQUE: Three views of the left foot were obtained. FINDINGS: No fracture, dislocation or joint space abnormality is identified. [facility] User, Interfaces - 02/14/2021 7:45 AM EDT CLINICAL INDICATION: Trauma EXAM DESCRIPTION: XR FOOT LEFT 3 VIEWS 02/13/2021 11:12 pm COMPARISON: No priors/comparison/ additional images are available TECHNIQUE: Three views of the left foot were obtained. FINDINGS: No fracture, dislocation or joint space abnormality is identified. IMPRESSION IMPRESSION: No acute bony abnormality. [facility] CBC, EDIF, PLATELETOrdered B y: Alicia Ribera on 06-08-2020 Basophils (Bld) [#/Vol] 0.05 10*3/uL 0 - 0.2 10 *3/uL [facility] Basophils/100 WBC (Bld) 1.0 % 0 - 2 % M [facility] Eosinophils (Bld) [#/Vol] 0.17 10*3/uL 0 - 0.5 10*3/uL [facility] Eosinophils/100 WBC (Bld) 3.3 % 0 - 4 % [facility] Erythrocyte distribution width (RBC) [Ratio] 13.5 % 11.5 - 14.5 % [facility] Hematocrit (Bld) [Volume fraction] 46.2 % 42 - 54 % [facility] Hemoglobin (Bld) [Mass/Vol] 14.9 g/dL 14 - 18 g/dL [facility] Lymphocytes (Bld) [#/Vol] 1.82 10*3/uL 1 - 4.8 10*3/uL [facility] MCH (RBC) [Entitic mass] 27.3 pg 25.6 - 32.2 pg [facility] MCHC (RBC) [Mass/Vol] 32.3 g/dL 32 - 36 g/dL [facility] MCV (RBC) [Entitic vol] 84.8 fL 82 - 98 fL [facility] Monocytes (Bld) [#/Vol] 0.47 10*3/uL 0.2 - 1.2 10*3/uL [facility] Monocytes/100 WBC (Bld) 9.0 % 5 - 11 % [facility] Neutrophils (Bld) [#/Vol] 2.69 10*3/uL 2 - 7.5 10*3/uL [facility] Nucleated RBC/100 WBC (Bld) [Ratio] 0.0 % [facility] Platelet mean volume (Bld) [Entitic vol] 10.1 fL 9.4 - 12.4 fL [facility] Platelets (Bld) [#/Vol] 221 10*3/uL 150 - 400 10*3/uL [facility] RBC (Bld) [#/Vol] 5.45 10*6/uL 4.3 - 5.7 10*6/uL [facility] RBC, NUCLEATED, ABSOLUTE 0.00 [facility] Segmented neutrophils/100 WBC (Bld) 51.6 % 36 - 66 % [facility] Variant lymphocytes Auto Ql (Bld) 34.9 % 24 - 44 % [facility] WBC (Bld) [#/Vol] 5.21 10*3/uL 4.8 - 10.8 10*3/uL [facility] COMPREHENSIVE METABOLIC PANE LOrdered By: Alicia Ribera on 06-08-2020 Albumin [Mass/Vol] 3.9 g/dL 3.5 - 5 g/dL [facility] ALP [Catalytic activity/Vol] 57 U/L 38 - 126 U/L [facility] ALT [Catalytic activity/Vol] 16 U/L Low 21 - 72 U/L [facility] Anion gap [Moles/Vol] 6.5 mmol/L 10 - 14 mmol/L [facility] AST [Catalytic activity/Vol] 22 U/L 17 - 59 U/L [facility] Bilirubin [Mass or moles/Vol] 0.3 mg/dL 0.2 - 1.2 mg/dL [facility] Calcium [Mass/Vol] 8.9 mg/dL 8.4 - 10.2 mg/dL [facility] Chloride [Moles/Vol] 107 mmol/L 100 - 110 mmol/ L [facility] CO2 [Moles/Vol] 26.0 mmol/L [facility] Creatinine [Mass/Vol] 0.80 mg/dL 0.8 - 1.5 mg/d L [facility] GFR/1.73 sq M.predicted (S/P/Bld) [Vol rate/Area] 124 mL/min >60 mL/min/1.73 m2 [facility] Comment on above: Reference Range: 59 to 44 - Mild to moderate loss of kidney function 44 to 30 - Moderate to Severe loss of kidney function 29 to 15 - Severe loss of kidney function <15 - Kidney failure The estimated GFR is based on the MDRD formula for assessment of stable or slowly declining kidney function in adults. Estimated GFR values are not accurate in: -Obese (BMI>34) OR underweight (BMI<20) people -The very old OR very young -Races other than or -Malian -People with acute illnesses, amputations, or acute kidney failure. Estimated GFR should be interpreted in clinical context and an alternative method such as a timed urine collection for creatinine clearance used to verify questionable results. (Ref. National Kidney Foundation 2015) Glucose [Mass/Vol] 124 mg/dL High 70 - 100 mg/dL [facility] Interpretation and review of laboratory results Abnormal [facility] Potassium [Moles/Vol] 3.9 mmol/L 3.5 - 5 mmol/L [facility] Protein [Mass/Vol] 6.4 g/dL 6 - 8.2 g/dL [facility] Sodium [Moles/Vol] 140 mmol/L 136 - 145 mmol/L [facility] Urea nitrogen/Creatinine [Mass ratio] 17 mg/dL 7 - 22 mg/dL [facility] D-DIMER,QUANTITATIVEOrdered By: Alicia Ribera on 06-08-2020 Fibrin D-dimer DDU (PPP) [Mass/Vol] <0.19 [facility] Comment on above: 09-05-16 D-DIMER AMIRA TITATIVE REFERENCE INTERVAL: Anticoagulant therapy decreases the D-dimer levels and may generate false negative results Quantitative D-dimer performed on the [employer] [id number] analyzer. Cutoff value is 0.50 mg/L FEU in an attempt to obtain a negative predictive value close to 100 percent. (for DVT and PE). Non-VTE causes of elevated D-dimer include: trauma, NV, stroke, sepsis, DIC, active collagen diseases, post-surgery, cancer, thrombolytic therapy, large hematoma, diabetes, and post-. Clinical data and imaging studies may be used in order to confirm a positive D-dimer test. The above D-dimer assay may be used for DIC screening in conjunction with other coagulation procedures (PT, PTT, fibrinogen and platelet count). Pathology consultation is available. 09-05-16 ECGOrdered By: Alicia Stanford iff on 06-08-2020 [facility] Test Date: 2020-06-08 Pat Name: Lesley Heller Department: Room: Gender: Unknown Rn Orthopaedics: : Requested By: Order Number: [id number] Reading MD: Morris Cano Measurements Intervals [place] Rate: 72 P: 51 MO: 84 QRS: 72 QRSD: 118 T: 64 QT: 394 QTc: 434 Interpretive Statements Sinus rhythm with short MO Incomplete right bundle branch block Borderline ECG Electronically Signed On 06-08-2020 14:13:32 EDT by Morris Cano [facility] User, 06/08/2020 2:13 PM EDT [facility] Test Date: 2020-06-08 Pat Name: Lesley Heller Department: Room: Gender: Unknown Rn Orthopaedics: : Requested By: Order Number: [id number] Baldemar BARTON: Morris Cano Measurements Intervals [place] Rate: 72 P: 51 MO: 84 QRS: 72 QRSD: 118 T: 64 QT: 394 QTc: 434 Interpretive Statements Sinus rhythm with short MO Incomplete right bundle branch block Borderline ECG Electronically Signed On 06-08-2020 14:13:32 EDT by Morris Cano [facility] LIPASEOrdered By: Alicia servin on 06-08-2020 Lipase [Catalytic activity/Vol] 46 U/L 23 - 300 U/L [facility] TROPONINOrdered By: Alicia Ribera on 06-08-2020 Troponin I.cardiac [Mass/Vol] ng/mL 0.012 - 0.12 ng/mL [facility] Comment on above: REFERENCE RANGE IS 0.012 - 0.120 ng/ml cTnI - The cutoff of 0.120 ng/ml is recommended for diagnosis of AMI, yielding optimal performance of 95% sensitivity and 93% specificity. XR CHEST PA AND LATERALOrder ed By: Alicia Ribera on 06-08-2020 IMPRESSION: Negative chest [facility] CLINICAL INDICATION: chest pain EXAM DESCRIPTION: XR CHEST PA AND LATERAL 06/08/2020 6:49 am COMPARISON: 04/02/2020 TECHNIQUE: FINDINGS: The size and contour of the heart and mediastinum are normal. The lungs are clear. [facility] User, Interfaces - 06/08/2020 7:17 AM EDT CLINICAL INDICATION: chest pain EXAM DESCRIPTION: XR CHEST PA AND LATERAL 06/08/2020 6:49 am COMPARISON: 04/02/2020 TECHNIQUE: FINDINGS: The size and contour of the heart and mediastinum are normal. The lungs are clear. IMPRESSION IMPRESSION: Negative chest [facility] XR-B-READ CHEST X-RAY 1 VIEW on 04-02-2020 XR-B-READ CHEST X-RAY 1 VIEW CLINICAL INDICATION: History and physical examination, pre-employment EXAM DESCRIPTION: XR-B-READ CHEST X-RAY 1 VIEW 04/02/2020 1:21 pm COMPARISON: 02/11/2013 TECHNIQUE: B read chest x-ray FINDINGS: Please see separate B read interpretation form for detailed description of findings. IMPRESSION: Please see separate B read interpretation form for detailed description of findings. Read By: KRISTEN BARTON, LESLEY [facility] XR FINGER(S) LEFT 2+ VIEWSon 07-07-2019 XR FINGER(S) LEFT 2+ VIEWS EXAMINATION: XR FINGER(S) LEFT 2+ VIEWS 07/07/2019 12:52 pm HISTORY: ORDERING SYSTEM PROVIDED HISTORY: trauma to distal ring finger, TECHNOLOGIST PROVIDED HISTORY: Injury/Trauma Reason for exam: pt states, LT forth digit was smashed by transmission, distal phalanx Cancer History: unk Surgery, RadiationHistory: unk Encounter Type: Initial Mechanism of injury: smashing ORDERING SYSTEM PROVIDED DIAGNOSIS CODES: COMPARISON: Left hand radiographs from 05/05/2014. FINDINGS: Three views of the 3rd digit of the left hand are performed demonstrating overall normal bone mineralization. No acute fracture or subluxation is identified. Articular surfaces are intact. There is mild soft tissue swelling of the 3rd digit. No destructive osseous lesions. IMPRESSION: No acute osseous abnormality. [facility] Workstation ID: [id number] Dictated by: CHRISTINA SCHUMACHER on MonJul 07, 2019 1:24:17 PM EST Transcribed by: BRIANNA MORAN on MonJul 07, 2019 1:47:15 PM EST Finalized by: CHRISTINA SCHUMACHER on MonJul 07, 2019 3:05:32 PM EST Normal [facility] Comment on above: Order Comment: Injur y/Trauma or Illness?:Injury/Trauma How long have you had these symptoms (acute/chronic)?:Acute Reason for exam?:pt states, LT forth digit was smashed by transmission, distal phalanx History of cancer?:unk Surgeries, chemotherapy, or radiation?:unk Type of Exam?:Initial Mechanism of injury?:smashing XR Finger(s) Left 2+ Viewson 07-07-2019 No acute osseous abnormality. [facility] Workstation ID: [id number] [facility] EXAMINATION: XR FINGER(S) LEFT 2+ VIEWS 07/07/2019 12:52 pm HISTORY: ORDERING SYSTEM PROVIDED HISTORY: trauma to distal ring finger, TECHNOLOGIST PROVIDED HISTORY: Injury/Trauma Reason for exam: pt states, LT forth digit was smashed by transmission, distal phalanx Cancer History: unk Surgery, RadiationHistory: unk Encounter Type: Initial Mechanism of injury: smashing ORDERING SYSTEM PROVIDED DIAGNOSIS CODES: COMPARISON: Left hand radiographs from 05/05/2014. FINDINGS: Three views of the 3rd digit of the left hand are performed demonstrating overall normal bone mineralization. No acute fracture or subluxation is identified. Articular surfaces are intact. There is mild soft tissue swelling of the 3rd digit. No destructive osseous lesions. [facility] Interface, Rad In Fuji Speechq - 07/07/2019 3:08 PM EST EXAMINATION: XR FINGER(S) LEFT 2+ VIEWS 07/07/2019 12:52 pm HISTORY: ORDERING SYSTEM PROVIDED HISTORY: trauma to distal ring finger, TECHNOLOGIST PROVIDED HISTORY: Injury/Trauma Reason for exam: pt states, LT forth digit was smashed by transmission, distal phalanx Cancer History: unk Surgery, RadiationHistory: unk Encounter Type: Initial Mechanism of injury: smashing ORDERING SYSTEM PROVIDED DIAGNOSIS CODES: COMPARISON: Left hand radiographs from 05/05/2014. FINDINGS: Three views of the 3rd digit of the left hand are performed demonstrating overall normal bone mineralization. No acute fracture or subluxation is identified. Articular surfaces are intact. There is mild soft tissue swelling of the 3rd digit. No destructive osseous lesions. IMPRESSION: No acute osseous abnormality. SYJ/pji Workstation ID: [id number] [facility] XR FOOT RIGHT 3+ VIEWS (CINTHIA JOSHI)on 12-13-2018 No acute bony abnormality. Workstation ID: [id number] [facility] EXAMINATION: XR FOOT RIGHT 3+ VIEWS (STANDARD) HISTORY: pian COMPARISON: None. TECHNIQUE: Three views of the right foot FINDINGS: No fracture or dislocation is seen. Joint spaces are well maintained. No bony erosive changes. Soft tissues are unremarkable. No radiopaque foreign bodies. [facility] Interface, Rad In Lacey Speechq - 12/13/2018 1:25 AM EDT EXAMINATION: XR FOOT RIGHT 3+ VIEWS (STANDARD) HISTORY: pian COMPARISON: None. TECHNIQUE: Three views of the right foot FINDINGS: No fracture or dislocation is seen. Joint spaces are well maintained. No bony erosive changes. Soft tissues are unremarkable. No radiopaque foreign bodies. IMPRESSION: No acute bony abnormality. Workstation ID: [id number] [facility] POC Urinalysis Dipstick, Aut oon 11-24-2018 Bilirubin Ql (U) Negative Negative [facility] Glucose Ql (U) Negative Normal, Negat cole mg/dL [facility] Hemoglobin Ql (U) Negative Negative [facility] Interpretation and review of laboratory results Normal [facility] Ketones Ql (U) Negative Negative mg/dL [facility] Leukocyte esterase Test strip Ql (U) Negative Negative [facility] Nitrite Ql (U) Negative Negative [facility] pH (U) 7.0 [pH] [facility] Protein Ql (U) Negative Negative mg/dL [facility] Specific gravity Relative Density (U) 1.020 [facility] Urobilinogen Qn (U) 0.2 mg/dL <2.0, 0. 2, Normal, Negative, 1.0, 2.0, <1.0 [facility] D-DIMER, QUANTITATIVEon 08-15 Fibrin D-dimer FEU mass conc (PPP) <0.27 0.27 - 0.49 mcg/mL FEU [facility] Interpretation and review of laboratory results Normal [facility] A D-dimer concentration of <0.5 micrograms per milliliter FEU is considered a low probability for pulmonary embolus (PE) and deep venous thrombosis (DVT). Results of this test should always be interpreted in conjunction with the patient's medical history,clinical presentation, and other findings. Clinical diagnosis should not be based on the results of the D-dimer alone. [facility] INFLUENZA A,B RAPID MOLECULA Rodri 09-11-2018 FLUAV RNA MARCIO+probe Ql (Unsp spec) Not Detected Not Detected [facility] FLUBV RNA MARCIO+probe Ql (Unsp spec) Not Detected Not Detected [facility] Interpretation and review of laboratory results Normal [facility] Test Method: Nucleic Acid Amplification [facility] Otheron 09-11-2018 Extra Tube Hold for add-ons. [facility] Comment on above: Auto resulted. Rapid Strep Screenon 019 Interpretation and review of laboratory results Normal [facility] Strep A Ag Negative Presumptive Negative for Group A Streptococcus [facility] XR CHEST AP/PA AND LATon XR CHEST AP/PA AND LAT EXAMINATION: TWO VIEW XR CHEST AP/PA AND LAT, 09/11/2018 COMPARISON: None HISTORY: Reason for exam?:c/o sore throat and coughing up some bloody sputum x 2 days, h/o heart murmur, smoker 0.5 ppd Injury/Trauma or Illness?:Illness/O ther cp FINDINGS: The lungs are clear with no acute pulmonary disease. No pulmonary edema, pneumothorax or pleural effusion. Normal heart size. No acute osseous abnormality. IMPRESSION: 1. Normal exam. GJT/ges Workstation ID: [id number] Dictated by: KLEBER CRENSHAW on MonSep 11, 2018 12:44:17 PM EST Transcribed by: ELIEZER WEN on MonSep 11, 2018 12:46:33 PM EST Finalized by: KLEBER CRENSHAW on MonSep 11, 2018 1:56:46 PM EST Normal [facility] Comment on above: Order Comment: Reaso n for exam?:c/o sore throat and coughing up some bloody sputum x 2 days, h/o heart murmur, smoker 0.5 ppd Injury/Trauma or Illness?:Illness/Other How long have you had these symptoms (acute/chronic)?:Acute History of cancer?:unk Surgeries, chemotherapy, or radiation?:unk Type of Exam?:Initial Additional signs and symptoms?:n 1. Normal exam. [employer] Workstation ID: [id number] [facility] Interface, Rad In Mayuri Speechq - 09/11/2018 1:59 PM EST EXAMINATION: TWO VIEW XR CHEST AP/PA AND LAT, 09/11/2018 COMPARISON: None HISTORY: Reason for exam?:c/o sore throat and coughing up some bloody sputum x 2 days, h/o heart murmur, smoker 0.5 ppd Injury/Trauma or Illness?:Illness/O ther cp FINDINGS: The lungs are clear with no acute pulmonary disease. No pulmonary edema, pneumothorax or pleural effusion. Normal heart size. No acute osseous abnormality. IMPRESSION: 1. Normal exam. AramisAutoT/Huoli Workstation ID: [id number] [facility] EXAMINATION: TWO VIEW XR CHEST AP/PA AND LAT, 09/11/2018 COMPARISON: None HISTORY: Reason for exam?:c/o sore throat and coughing up some bloody sputum x 2 days, h/o heart murmur, smoker 0.5 ppd Injury/Trauma or Illness?:Illness/O ther cp FINDINGS: The lungs are clear with no acute pulmonary disease. No pulmonary edema, pneumothorax or pleural effusion. Normal heart size. No acute osseous abnormality. [facility] XR Elbow Left W/Obl Min 3 Vw son 01-08-2018 XR Elbow Left W/Obl Min [address] [facility] Radiology Department Patient: LESLEY HELLER [address]. : 1995 Sex: [place] [address] Location: [phone] Unit #: [id number] Ordering Phys: Anthnoy Fernandez DO Exam Date: 01/08/18 Exam: MAIN XR Elbow Left W/Obl Min 3 Vws Result: STUDY: X-RAY - LEFT ELBOW REASON FOR EXAM: Male, 22 years old. Trauma TECHNIQUE: 3 view(s) of the elbow. COMPARISON: None. FINDINGS: Normal visualized humerus, radius and ulna. Normal radiocapitellar and ulnotrochlear articulations. The soft tissue structures are unremarkable. IMPRESSION: Normal x-ray examination of the elbow. Electronically Signed: Teja Mead MD at 7:45 EDT Tel , Service support , cc: Anthony Fernandez DO; Duncan Gonzalez MD Dictated by: Teja Mead on 01/08/1845 Technologist: Beth Ba RT(R) Transcribed by: Teja Mead on 01/08/1845 Report Signed by: Alyce BARTON,Teja Kendall on 01/08/[address] [facility] Vital Signs Date Time Vital Sign Value Performing Clinician Sena segal 06-19-2023 16:14-0500 Body temperature 97.59 [degF] Cecy Gaylord EXHAUSTER Work Phone: [facility] 06-19-2023 16:14-0500 Diastolic blood pressure 101 mm[Hg] Cecy West EXHAUSTER Work Phone: [facility] 06-19-2023 16:14-0500 Heart rate 87 /min Cecy West EXHAUSTER Work Phone: [facility] 06-19-2023 16:14-0500 Respiratory rate 18 /min Cecy Gaylord EXHAUSTER Work Phone: [facility] 06-19-2023 16:14-0500 SaO2% (BldA) [Mass fraction] 99 % Cecy Gaylord EXHAUSTER Work Phone: [facility] 06-19-2023 16:14-0500 Systolic blood pressure 151 mm[Hg] Cecy Miguel EXHAUSTER Work Phone: [facility] 12-16-2022 10:05-0400 Body height 172.7 cm Brianda Archuleta MD Work Phone: [facility] 12-16-2022 10:05-0400 Body mass index (BMI) [Ratio] 35.61 kg/m2 Brianda Archuleta MD Work Phone: [facility] 12-16-2022 10:05-0400 Body temperature 96.8 [degF] Brianda Archuleta MD Work Phone: [facility] 12-16-2022 10:05-0400 Body weight 106.23 kg Brianda Archuleta MD Work Phone: [facility] 12-16-2022 10:05-0400 Diastolic blood pressure 85 mm[Hg] Brianda Archuleta MD Work Phone: [facility] 12-16-2022 10:05-0400 Heart rate 82 /min Brianda Archuleta MD Work Phone: [facility] 12-16-2022 10:05-0400 SaO2% (BldA) [Mass fraction] 97 % Brianda Archuleta MD Work Phone: [facility] 12-16-2022 10:05-0400 Systolic blood pressure 127 mm[Hg] Brianda Archuleta MD Work Phone: [facility] 12-07-2022 20:03-0400 Body temperature 98.6 [degF] Rebecca Barney MD Work Phone: [facility] 12-07-2022 20:03-0400 Diastolic blood pressure 93 mm[Hg] Rebecca Barney MD Work Phone: [facility] 12-07-2022 20:03-0400 Heart rate 82 /min Rebecca Barnye MD Work Phone: [facility] 12-07-2022 20:03-0400 Respiratory rate 17 /min Rebecca Barney MD Work Phone: [facility] 12-07-2022 20:03-0400 SaO2% (BldA) [Mass fraction] 99 % Rebecca Barney MD Work Phone: [facility] 12-07-2022 20:03-0400 Systolic blood pressure 132 mm[Hg] Rebecca Barney MD Work Phone: [facility] 02-18-2022 15:24-0400 Body height 172.7 cm Christopher Tosino DO Work Phone: [facility] 02-18-2022 15:24-0400 Body mass index (BMI) [Ratio] 32.89 kg/m2 Christopher Tosino DO Work Phone: [facility] 02-18-2022 15:24-0400 Body temperature 98.4 [degF] Christopher Tosino DO Work Phone: [facility] 02-18-2022 15:24-0400 Body weight 98.11 kg Christopher Tosino DO Work Phone: [facility] 02-18-2022 15:24-0400 Diastolic blood pressure 78 mm[Hg] Christopher Tosino DO Work Phone: [facility] 02-18-2022 15:24-0400 Heart rate 99 /min Christopher Tosino DO Work Phone: [facility] 02-18-2022 15:24-0400 Respiratory rate 18 /min Christopher Tosino DO Work Phone: [facility] 02-18-2022 15:24-0400 SaO2% (BldA) [Mass fraction] 96 % Christopher Tosino DO Work Phone: [facility] 02-18-2022 15:24-0400 Systolic blood pressure 119 mm[Hg] Christopher Tosino DO Work Phone: [facility] 02-10-2022 04:05-0400 SaO2% (BldA) [Mass fraction] 100 % Dami Abdi MD Work Phone: [facility] 02-10-2022 04:04-0400 Body height 172.7 cm Dami Abdi MD Work Phone: [facility] 02-10-2022 04:04-0400 Body mass index (BMI) [Ratio] 31.93 kg/m2 Dami Abdi MD Work Phone: [facility] 02-10-2022 04:04-0400 Body weight 95.25 kg Dami Abdi MD Work Phone: [facility] 02-10-2022 04:02-0400 Body temperature 97.11 [degF] Dami Abdi MD Work Phone: [facility] 02-10-2022 04:02-0400 Diastolic blood pressure 65 mm[Hg] Dami Abdi MD Work Phone: [facility] 02-10-2022 04:02-0400 Heart rate 71 /min Dami Abdi MD Work Phone: [facility] 02-10-2022 04:02-0400 Respiratory rate 18 /min Dami Abdi MD Work Phone: [facility] 02-10-2022 04:02-0400 Systolic blood pressure 121 mm[Hg] Dami Abdi MD Work Phone: [facility] 02-07-2022 17:43-0400 Body temperature 98.01 [degF] Sri Montesinos LAB ANIMAL TECHNOLOGIST-FLORAL DECORATOR Work Phone: [facility] 02-07-2022 17:43-0400 Diastolic blood pressure 92 mm[Hg] Sri Montesinos LAB ANIMAL TECHNOLOGIST-FLORAL DECORATOR Work Phone: [facility] 02-07-2022 17:43-0400 Heart rate 71 /min Sri Montesinos LAB ANIMAL TECHNOLOGIST-FLORAL DECORATOR Work Phone: [facility] 02-07-2022 17:43-0400 SaO2% (BldA) [Mass fraction] 96 % Sri Montesinos LAB ANIMAL TECHNOLOGIST-FLORAL DECORATOR Work Phone: [facility] 02-07-2022 17:43-0400 Systolic blood pressure 147 mm[Hg] Sri Montesinos LAB ANIMAL TECHNOLOGIST-FLORAL DECORATOR Work Phone: [facility] 11-16-2021 10:15-0400 Body temperature 98.2 [degF] Elvira Frausto FLORAL DECORATOR Work Phone: [facility] 11-16-2021 10:15-0400 Diastolic blood pressure 84 mm[Hg] Elvira Frausto FLORAL DECORATOR Work Phone: [facility] 11-16-2021 10:15-0400 Heart rate 90 /min Elvira Frausto FLORAL DECORATOR Work Phone: [facility] 11-16-2021 10:15-0400 Respiratory rate 12 /min Elvira Frausto FLORAL DECORATOR Work Phone: [facility] 11-16-2021 10:15-0400 Systolic blood pressure 127 mm[Hg] Elvira Frausto FLORAL DECORATOR Work Phone: [facility] 10-12-2021 14:24-0500 Body temperature 98.6 [degF] Mp Mora FLORAL DECORATOR Work Phone: [facility] 10-12-2021 14:24-0500 Diastolic blood pressure 80 mm[Hg] pM Mora FLORAL DECORATOR Work Phone: [facility] 10-12-2021 14:24-0500 Heart rate 107 /min Mp Mora FLORAL DECORATOR Work Phone: [facility] 10-12-2021 14:24-0500 Respiratory rate 12 /min Mp Mora FLORAL DECORATOR Work Phone: [facility] 10-12-2021 14:24-0500 Systolic blood pressure 113 mm[Hg] Mp Mora FLORAL DECORATOR Work Phone: [facility] 02-13-2021 23:48-0400 Body temperature 98.2 [degF] Francis Coleman MD Work Phone: [facility] 02-13-2021 23:48-0400 Diastolic blood pressure 61 mm[Hg] Francis Coleman MD Work Phone: [facility] 02-13-2021 23:48-0400 Heart rate 63 /min Francis Coleman MD Work Phone: [facility] 02-13-2021 23:48-0400 Respiratory rate 18 /min Francis Coleman MD Work Phone: [facility] 02-13-2021 23:48-0400 SaO2% (BldA) [Mass fraction] 98 % Francis Coleman MD Work Phone: [facility] 02-13-2021 23:48-0400 Systolic blood pressure 113 mm[Hg] Francis Coleman MD Work Phone: [facility] 02-13-2021 22:38-0400 Body height 172.7 cm Francis Coleman MD Work Phone: [facility] 02-13-2021 22:38-0400 Body mass index (BMI) [Ratio] 31.93 kg/m2 Francis Coleman MD Work Phone: [facility] 02-13-2021 22:38-0400 Body weight 95.25 kg Francis Coleman MD Work Phone: [facility] 11-18-2020 22:20-0400 Body Temperature 98.2 [degF] [facility] 11-18-2020 22:20-0400 BP Diastolic 82 mm[Hg] [facility] 11-18-2020 22:20-0400 BP Systolic 131 mm[Hg] [facility] 11-18-2020 22:20-0400 Pulse (Heart Rate) 88 /min [facility] 11-18-2020 22:20-0400 Pulse Oximetry 97 % [facility] 11-18-2020 22:20-0400 Respiratory Rate 16 /min [facility] 11-18-2020 21:21-0400 Height 172.7 cm Alicia Ribera [facility] 08-27-2020 09:09-0500 BMI (Body Mass Index) 30.41 kg/m2 Replaced by [facility] 08-27-2020 09:09-0500 Body weight 90.72 kg Replaced by [facility] 08-27-2020 09:09-0500 BP Diastolic 79 mm[Hg] Replaced by [facility] 08-27-2020 09:09-0500 BP Systolic 120 mm[Hg] Replaced by [facility] 08-27-2020 09:09-0500 Height 172.7 cm Replaced by [facility] 08-27-2020 09:09-0500 Pulse (Heart Rate) 76 /min Replaced by [facility] 06-19-2020 12:53-0500 BMI (Body Mass Index) 29.19 kg/m2 [facility] 06-19-2020 12:53-0500 Body Temperature 98.2 [degF] [facility] 06-19-2020 12:53-0500 Body weight 89.9 kg [facility] 06-19-2020 12:53-0500 BP Diastolic 77 mm[Hg] [facility] 06-19-2020 12:53-0500 BP Systolic 137 mm[Hg] [facility] 06-19-2020 12:53-0500 Height 175.5 cm [facility] 06-19-2020 12:53-0500 Pulse (Heart Rate) 90 /min [facility] 06-19-2020 12:53-0500 Pulse Oximetry 96 % [facility] 06-08-2020 05:26-0400 Body height 180.3 cm Alicia Ribera MD Work Phone: [facility] 06-08-2020 05:26-0400 Body mass index (BMI) [Ratio] 27.34 kg/m2 Alicia Ribera MD Work Phone: [facility] 06-08-2020 05:26-0400 Body weight 88.91 kg Alicia Ribera MD Work Phone: [facility] 06-08-2020 05:26-0400 SaO2% (BldA) [Mass fraction] 98 % Alicia Ribera MD Work Phone: [facility] 06-08-2020 05:25-0400 Body temperature 98.1 [degF] Alicia Ribera MD Work Phone: [facility] 06-08-2020 05:25-0400 Diastolic blood pressure 76 mm[Hg] Alicia Ribera MD Work Phone: [facility] 06-08-2020 05:25-0400 Heart rate 77 /min Alicia Ribera MD Work Phone: [facility] 06-08-2020 05:25-0400 Respiratory rate 18 /min Alicia Ribera MD Work Phone: [facility] 06-08-2020 05:25-0400 Systolic blood pressure 127 mm[Hg] Alicia Ribera MD Work Phone: [facility] 07-07-2019 12:39-0500 BMI (Body Mass Index) 22.32 kg/m2 [facility] 07-07-2019 12:39-0500 Body Temperature 99.1 [degF] [facility] 07-07-2019 12:39-0500 Body weight 72.58 kg [facility] 07-07-2019 12:39-0500 BP Diastolic 76 mm[Hg] [facility] 07-07-2019 12:39-0500 BP Systolic 120 mm[Hg] [facility] 07-07-2019 12:39-0500 Height 180.3 cm [facility] 07-07-2019 12:39-0500 Pulse (Heart Rate) 101 /min [facility] 07-07-2019 12:39-0500 Pulse Oximetry 100 % [facility] 03-21-2019 19:58-0400 BMI (Body Mass Index) 26.44 kg/m2 Amarilis Andria [facility] 03-21-2019 19:58-0400 Body Temperature 99 [degF] Amarilis Andria [facility] 03-21-2019 19:58-0400 Body weight 86 kg Amarilis Ayers [facility] 03-21-2019 19:58-0400 BP Diastolic 73 mm[Hg] Amarilis Ayers [facility] 03-21-2019 19:58-0400 BP Systolic 120 mm[Hg] Amarilis Ayers [facility] 03-21-2019 19:58-0400 Height 180.3 cm Amarilis Ayers [facility] 03-21-2019 19:58-0400 Pulse (Heart Rate) 84 /min Amarilis Ayers [facility] 03-21-2019 19:58-0400 Pulse Oximetry 98 % Amarilis Ayers [facility] 12-13-2018 02:02-0400 Body Temperature 98.71 [degF] Duncan [facility] 12-13-2018 02:02-0400 BP Diastolic 82 mm[Hg] [facility] 12-13-2018 02:02-0400 BP Systolic 127 mm[Hg] [facility] 12-13-2018 02:02-0400 Pulse (Heart Rate) 65 /min [facility] 12-13-2018 02:02-0400 Pulse Oximetry 100 % [facility] 12-13-2018 02:02-0400 Respiratory Rate 16 /min [facility] 12-13-2018 00:38-0400 BMI (Body Mass Index) 26.29 kg/m2 [facility] 12-13-2018 00:38-0400 Height 180.3 cm [facility] 12-13-2018 00:38-0400 Weight 85.5 kg [facility] 11-29-2018 13:57-0400 BMI (Body Mass Index) 26.08 kg/m2 [facility] 11-29-2018 13:57-0400 BP Diastolic 79 mm[Hg] [facility] 11-29-2018 13:57-0400 BP Systolic 118 mm[Hg] [facility] 11-29-2018 13:57-0400 Height 180.3 cm [facility] 11-29-2018 13:57-0400 Pulse (Heart Rate) 78 /min [facility] 11-29-2018 13:57-0400 Weight 84.82 kg Duncan Gonzalez [facility] 11-24-2018 14:45-0400 BMI (Body Mass Index) 25.52 kg/m2 Duncanchico Lugo [facility] 11-24-2018 14:45-0400 Body Temperature 97.5 [degF] Duncan Lugo [facility] 11-24-2018 14:45-0400 BP Diastolic 75 mm[Hg] Duncan Lugo [facility] 11-24-2018 14:45-0400 BP Systolic 113 mm[Hg] Duncan Lugo [facility] 11-24-2018 14:45-0400 Height 180.3 cm Duncan [facility] 11-24-2018 14:45-0400 Pulse (Heart Rate) 78 /min [place] Lugo [facility] 11-24-2018 14:45-0400 Pulse Oximetry 99 % [place] Lugo [facility] 11-24-2018 14:45-0400 Respiratory Rate 18 /min [place] Lugo [facility] 11-24-2018 14:45-0400 Weight 83.01 kg Dunc[place]ico Lugo [facility] 10-18-2018 13:32-0500 BMI (Body Mass Index) 25.63 kg/m2 [facility] 13:32-0500 BP Diastolic 67 mm[Hg] Amarilis Ayers [facility] 10-18-2018 13:32-0500 BP Systolic 111 mm[Hg] Amarilis Ayers [facility] 10-18-2018 13:32-0500 Height 180.3 cm [facility] 10-18-2018 13:32-0500 Pulse (Heart Rate) 79 /min Amarilis Ayers [facility] 10-18-2018 13:32-0500 Pulse Oximetry 98 % [facility] 10-18-2018 13:32-0500 Weight 83.37 kg Amarilis Ayers [facility] 09-11-2018 13:44-0500 BP Diastolic 79 mm[Hg] Karthikeyan Quach [facility] 09-11-2018 13:44-0500 BP Systolic 113 mm[Hg] Karthikeyan Quach [facility] 09-11-2018 13:44-0500 Pulse (Heart Rate) 60 /min Karthikeyan Quach [facility] 09-11-2018 13:44-0500 Pulse Oximetry 97 % Karthikeyan Quach [facility] 09-11-2018 13:44-0500 Respiratory Rate 16 /min Karthikeyan Quach [facility] 09-11-2018 11:24-0500 Body Temperature 98.6 [degF] Karthikeyan Quach [facility] 09-11-2018 11:23-0500 BMI (Body Mass Index) 25.68 kg/m2 Karthikeyan Quach [facility] 09-11-2018 11:23-0500 Weight 84.7 kg Karthikeyan Quach [facility] 09-11-2018 11:21-0500 Height 181.6 cm Karthikeyan Quach [facility] 01-17-2018 15:23-0400 BMI (Body Mass Index) 22.9 kg/m2 Nader [facility] 01-17-2018 15:23-0400 Body Temperature 97.2 [degF] [facility] 01-17-2018 15:23-0400 BP Diastolic 74 mm[Hg] [facility] 01-17-2018 15:23-0400 BP Systolic 122 mm[Hg] [facility] 01-17-2018 15:23-0400 Height 180.3 cm [facility] 01-17-2018 15:23-0400 Pulse (Heart Rate) 90 /min [facility] 01-17-2018 15:23-0400 Pulse Oximetry 97 % [facility] 01-17-2018 15:23-0400 Respiratory Rate 16 /min [facility] 01-17-2018 15:23-0400 Weight 74.48 kg [facility] 12-25-2017 05:00-0400 Body Temperature 97.81 [degF] [facility] 12-25-2017 05:00-0400 BP Diastolic 78 mm[Hg] [facility] 12-25-2017 05:00-0400 BP Systolic 122 mm[Hg] [facility] 12-25-2017 05:00-0400 Pulse (Heart Rate) 59 /min [facility] 12-25-2017 05:00-0400 Pulse Oximetry 99 % [facility] 12-25-2017 05:00-0400 Respiratory Rate 15 /min [facility] 12-25-2017 04:07-0400 BMI (Body Mass Index) 22.38 kg/m2 [facility] 12-25-2017 04:07-0400 Height 181.6 cm [facility] 12-25-2017 04:07-0400 Weight 73.8 kg Andrea Hubbard [facility] 12-18-2017 23:58-0400 BP Diastolic 79 mm[Hg] [place] [facility] 12-18-2017 23:58-0400 BP Systolic 137 mm[Hg] Josh Fodarius [facility] 12-18-2017 23:58-0400 Pulse (Heart Rate) 79 /min [place] [facility] 12-18-2017 23:58-0400 Pulse Oximetry 98 % [place] [facility] 12-18-2017 23:58-0400 Respiratory Rate 16 /min [facility] 12-18-2017 23:08-0400 BMI (Body Mass Index) 23 kg/m2 [place] [facility] 12-18-2017 23:08-0400 Body Temperature 98.2 [degF] [place] [facility] 12-18-2017 23:08-0400 Height 180.3 cm [facility] 12-18-2017 23:08-0400 Weight 74.8 kg [place] [facility] 03-27-2017 23:28-0400 Body Temperature 98.6 [degF] Donna Cohen [facility] Work Phone: 03-27-2017 23:28-0400 BP Diastolic 72 mm[Hg] Donna Cohen [facility] Work Phone: 03-27-2017 23:28-0400 BP Systolic 127 mm[Hg] Donna Cohen [facility] Work Phone: 03-27-2017 23:28-0400 Pulse (Heart Rate) 60 /min Donna Cohen [facility] Work Phone: 03-27-2017 23:28-0400 Pulse Oximetry 97 % Donna Cohen [facility] Work Phone: 03-27-2017 23:28-0400 Respiratory Rate 16 /min Donna Cohen [facility] Work Phone: 03-27-2017 22:07-0400 BMI (Body Mass Index) 26.58 kg/m2 Donna Cohen [facility] Work Phone: 03-27-2017 22:07-0400 Height 175.3 cm Donna Cohen [facility] Work Phone: 03-27-2017 22:07-040 Weight 81.65 kg Donna Cohen [facility] Work Phone: Encounters Encounter Date Encounter Type Care Provider Facility Start: 03-18-2025 End: 03-18-2025 Emergency department patient visit PHYSICIAN MARY [facility] Start: 06-14-2024 End: 06-14-2024 ambulatory TEJA VELIZ [facility] Start: 06-14-2024 End: 06-14-2024 Office outpatient new 30 minutes Teja Veliz DPM Work Phone: [facility] Pod[facility] Comment on above: Closed nondisplaced fracture of distal phalanx of right great toe, initial encounter (Primary Dx) Start: 05-30-2024 End: 05-30-2024 Emergency department [facility] Start: 10-10-2023 Telephone encounter Hilaria Sites MS, [facility] Comment on above: Test Results Start: 08-22-2023 End: 08-22-2023 Emergency department patient visit DAMI ABDI Facility:[facility] LOC Start: 07-28-2023 End: 07-29-2023 ambulatory NO PCP [facility] Start: 07-20-2023 Orders Only Hilaria Sites MS, [facility] Start: 06-19-2023 ambulatory SELF SELF Facility:[facility] LOC Start: 06-19-2023 End: 06-19-2023 Office outpatient visit 15 minutes Cecy Miguel NP Work Phone: [facility] Comment on above: Acute upper respirat ory infection (Primary Dx) Start: 04-13-2023 Documentation procedure Porsha Cobb on [facility] [place] Start: 01-21-2023 End: 01-21-2023 Emergency department patient visit IVANNA CLOUD Facility:[facility] LOC Start: 01-05-2023 ambulatory CHERI Tang ty:[facility] REV LOC Start: 12-20-2022 ambulatory KISHA KEATING Facility :[facility] LOC Start: 12-20-2022 End: 12-20-2022 Subsequent hospital visit by physician Kisha Keating MD Work Phone: Imaging at [facility] Comment on above: Arrived Start: 12-16-2022 End: 12-16-2022 ambulatory LUDWIG GANNON [facility] Ambulatory Start: 12-16-2022 End: 12-16-2022 Office outpatient new 30 minutes Brianda Archuleta MD Work Phone: [facility] [place] Comment on above: Physical exam, pre-e mployment (Primary Dx) Start: 12-07-2022 ambulatory REBECCA BARNEY Facility: [facility] LOC Start: 12-07-2022 End: 12-07-2022 Subsequent hospital visit by physician Rebecca Barney MD Work Phone: [facility] Radiology Orthopedics Comment on above: Arrived Start: 12-07-2022 End: 12-07-2022 Office outpatient visit 25 minutes Rebecca Barney MD Work Phone: [facility] Comment on above: Pain in finger of le ft hand (Primary Dx) Start: 02-18-2022 End: 02-22-2022 ambulatory LUDWIG GANNON [facility] Ambulatory Start: 02-18-2022 End: 02-22-2022 Encounter for general adult medical examination without abnormal [facility] Start: 02-18-2022 End: 02-18-2022 Initial preventive medicine new pt age 18-39yrs Ludwig Gannon DO Work Phone: [facility] Comment on above: Well adult exam (Kerline kaz Dx); Tobacco abuse; Sleep disturbance; Screening for diabetes mellitus; Screening for HIV (human immunodeficiency virus); Encounter for hepatitis C screening test for low risk patient; Screening for lipid disorders Well adult exam (Kerline kaz Dx); Tobacco dependence; Sleep disturbance; Screening for diabetes mellitus; Screening for HIV (human immunodeficiency virus); Encounter for hepatitis C screening test for low risk patient; Screening for lipid disorders Start: 02-18-2022 End: 02-18-2022 Patient encounter status Ludwig Gannon DO Work Phone: [facility] Start: 02-10-2022 End: 02-10-2022 Emergency department patient visit Dami Abdi MD Work Phone: [facility] Emergency Department Start: 02-07-2022 End: 02-07-2022 Office outpatient visit 25 minutes Sri Montesinos LAB ANIMAL TECHNOLOGIST-FLORAL DECORATOR Work Phone: [facility] Comment on above: Acute bacterial conj unctivitis of left eye (Primary Dx) Start: 11-16-2021 End: 11-16-2021 Subsequent hospital visit by physician Elvira Frausto FLORAL DECORATOR Work Phone: [facility] Comment on above: Arrived Start: 11-16-2021 End: 11-16-2021 Office outpatient visit 15 minutes Elvira Frausto FLORAL DECORATOR Work Phone: [facility] Comment on above: Pain in toe of left foot (Primary Dx); Subungual hematoma of great toe of left foot, initial encounter; Crushing injury of left great toe, initial encounter Start: 10-12-2021 End: 10-12-2021 Office outpatient visit 15 minutes Mp Mora FLORAL DECORATOR Work Phone: [facility] Comment on above: Ruptured ear drum, r ight (Primary Dx) Start: 06-07-2021 End: 06-07-2021 ambulatory LUDWIG GANNON [facility] Start: 06-07-2021 End: 06-07-2021 Office outpatient visit 15 minutes Nallely Brito DO Work Phone: [facility] Comment on above: Sinus congestion (Pr imary Dx) Start: 02-13-2021 End: 02-14-2021 Emergency department patient visit Francis Coleman MD Work Phone: [facility] Emergency Department Start: 11-18-2020 End: 11-18-2020 Emergency department patient visit Alicia Ribera Work Phone: [facility] Emergency Department Start: 08-27-2020 End: 08-27-2020 Office outpatient new 30 minutes Ammon Damon Work Phone: [facility] Comment on above: Encounter for vasect maurilio Start: 06-19-2020 End: 06-19-2020 Initial preventive medicine new pt age 18-39yrs Dami Abdi Work Phone: [facility] Comment on above: Well adult exam (Kerline kaz Dx); Encounter for smoking cessation counseling; Chronic bilateral low back pain without sciatica; Tobacco Abuse Start: 06-08-2020 End: 06-08-2020 Emergency department patient visit Alicia Ribera MD Work Phone: [facility] Emergency Department Start: 07-07-2019 End: 07-07-2019 Emergency department patient visit DUNCAN THAO [facility] Start: 07-07-2019 End: 07-07-2019 Emergency department patient visit Randolphdawit Steenrow Kelli Work Phone: [facility] Emergency Department Comment on above: Laceration of left r ing finger without foreign body without damage to nail, initial encounter (Primary Dx); Contusion of left ring finger without damage to nail, initial encounter Start: 03-21-2019 End: 03-21-2019 Office outpatient visit 15 minutes Amarilis Ayers Work Phone: [facility] Comment on above: Rhinorrhea (Primary Dx) Start: 03-21-2019 End: 03-21-2019 Documentation procedure Arabella Marcelo [facility] Start: 12-13-2018 End: 12-13-2018 Emergency department patient visit Duncan Gonzalez [facility] Emergency Department Comment on above: Cellulitis of foot, right (Primary Dx) Start: 11-29-2018 End: 11-29-2018 Office outpatient visit 15 minutes Duncan Gonzalez Work Phone: [facility] Comment on above: Acute prostatitis (P rimary Dx) Start: 11-24-2018 End: 11-24-2018 [facility] Start: 11-24-2018 End: 11-24-2018 Office outpatient new 30 minutes Duncan RMahsa Lugo Work Phone: [facility] [place] Comment on above: Urinary frequency (P rimary Dx) Start: 10-18-2018 End: 10-18-2018 Documentation procedure Arabella Marcelo [facility] Start: 10-18-2018 End: 10-18-2018 Office outpatient visit 15 minutes Amarilis Lilly Andria Work Phone: [facility] Comment on above: Acute non-recurrent maxillary sinusitis (Primary Dx) Start: 09-12-2018 Follow-up encounter Yani Mosqueda [facility] Comment on above: ED Follow-up Start: 09-12-2018 End: 09-12-2018 Patient encounter procedure Yani Mosqueda [facility] Start: 09-11-2018 End: 09-11-2018 Emergency department patient visit DUNCAN THAO [facility] Start: 09-11-2018 End: 09-11-2018 Emergency department patient visit Karthikeyan Andrea Quach Work Phone: [facility] Emergency Department Comment on above: Acute URI (Primary D x); Hemoptysis Start: 01-17-2018 End: 01-17-2018 Emergency department patient visit Nader Yanez Work Phone: [facility] Emergency Department Start: 01-08-2018 End: 01-08-2018 Emergency department patient visit Duncan Gonzalez Facility:[facility] Start: 12-25-2017 End: 12-25-2017 Emergency department patient visit Andrea Hubbard Work Phone: [facility] Emergency Department Start: 12-18-2017 End: 12-19-2017 Emergency department patient visit Josh Chan Work Phone: [facility] Emergency Department Start: 03-27-2017 End: 03-27-2017 Emergency department patient visit Donna Cohen Work Phone: [facility] Emergency Department Comment on above: Left wrist pain (Kerline kaz Dx) Procedures Date Procedure Procedure Detail Performing Clinician Start: 12-20-2022 Radex fingr minimum 2 views Kisha Keating MD Work Phone: Start: 12-16-2022 Urnls dip stick/tabl et rgnt auto w/o microscopy Brianda Archuleta MD Work Phone: Start: 12-07-2022 Radex fingr minimum 2 views Rebecca Barney MD Work Phone: Start: 02-18-2022 Adult depression scr eening assessment Louieheather Kelsey DO Work Phone: Start: 11-16-2021 Radex foot complete minimum 3 views Elvira Frausto FLORAL DECORATOR Work Phone: Start: 02-13-2021 Radex foot complete minimum 3 views Ludwig Polanco DO Work Phone: Start: 06-19-2020 Adult depression scr eening assessment Dami Abdi Start: 06-08-2020 Radiologic exam ches t 2 views Alicia Ribera MD Work Phone: Start: 06-08-2020 Complete blood count with white cell differential, automated Alicia Ribera MD Work Phone: Start: 06-08-2020 Comprehensive metabo lic panel Alicia Ribera MD Work Phone: Start: 06-08-2020 Ecg routine ecg w/le ast 12 lds w/i&r Alicia Ribera MD Work Phone: Start: 07-07-2019 Radex fingr minimum 2 views Randolph Pereira Work Phone: Start: 12-13-2018 X-ray of right foot Andrew annie Chan Work Phone: Start: 11-24-2018 Urnls dip stick/tabl et rgnt auto w/o microscopy Duncan Lugo Work Phone: Start: 09-11-2018 D-dimer assay, quantitative Karthikeyan Quach Work Phone: Start: 09-11-2018 Influenza virus A AN D B antigen assay Karthikeyan Quach Work Phone: Start: 09-11-2018 LAVENDER TOP Karthikeyan Quach Work Phone: Start: 09-11-2018 LIGHT BLUE TOP Karthikeyan Garay Work Phone: Start: 09-11-2018 LIGHT GREEN TOP Karthikeyan Becerra Work Phone: Start: 09-11-2018 MINT GREEN TOP Karthikeyan Garay Work Phone: Start: 09-11-2018 RAINBOW DRAW Karthikeyan Quach Work Phone: Start: 09-11-2018 Streptococcus pyogen es Ag [Presence] in Throat Karthikeyan Mendez Main Work Phone: Start: 09-11-2018 Standard chest X-ray Pa juan r Andrea Main Work Phone: Plan of Treatment Date Care Activity Detail Author Start: 04-14-2024 COVID-19 Vaccine ( season) COVID-19 Vaccine ( season) [facility] Start: 04-14-2024 Influenza vaccination Influenza Vacc ine (#1) [facility] Start: 07-20-2023 End: 07-20-2024 DNA ISOLATION AND STORAGE DNA ISOLATION AND STORAGE Lab Routine Family history of congenital or genetic condition Expected: 07/20/2023 (Approximate), Expires: 07/20/2024 [facility] Work Phone: Comment on above: Expected: 07/20/2023 (Approximate), Expires: 07/20/2024 Start: 07-20-2023 End: 07-20-2024 GENETICS SPECIMEN LABEL- REQUIRED FOR INHOUSE GENETIC TESTING GENETICS SPECIMEN LABEL- REQUIRED FOR INHOUSE GENETIC TESTING Lab Routine Family history of congenital or genetic condition Expected: 07/20/2023 (Approximate), Expires: 07/20/2024 [facility] Comment on above: Expected: 07/20/2023 (Approximate), Expires: 07/20/2024 Start: 04-14-2023 Influenza vaccination [facility] Start: 02-18-2023 COVID-19 Vaccine (#1) COVID-19 Vacci ne (#1) [facility] Comment on above: Postponed from 07/03 (Patient Refused) Start: 02-18-2023 Depression screening using PHQ-9 (Patient Health Questionnaire 9) score [facility] Start: 02-18-2023 History and physical examination, annual for health maintenance Wellness Visit [facility] Start: 02-18-2023 Pneumococcal Vaccine : Ped or At-Risk (1 - PCV) Pneumococcal Vaccine: Ped or At-Risk (1 - PCV) [facility] Comment on above: Postponed from 12/31 (Patient Refused) Start: 08-14-2022 Tetanus vaccination Tetanus: Every 1 0yrs [facility] Start: 04-14-2022 Influenza vaccination [facility] Start: 06-19-2021 Adolescent depressio n screening assessment Depression Screening (PHQ9) [facility] Start: 06-19-2021 Depression screening using PHQ-9 (Patient Health Questionnaire 9) score Depression Screening (PHQ-2/9) [facility] Start: 06-19-2021 History and physical examination, annual for health maintenance Wellness Visit [facility] Start: 04-14-2021 Influenza vaccination [facility] Start: 02-10-2021 Influenza vaccinatio n given Sequential Influenza Vaccine (#1) [facility] Comment on above: Postponed from 04/14 (Patient Refused) Start: 09-29-2020 End: 09-29-2020 Procedure visit 09/29/2020 Procedure visit Urology Ammon Damon MD [address] [place] [address] [phone] [facility] Start: 04-14-2020 Influenza vaccination INFLUENZA VACC INE (#1) [facility] Start: 04-14-2019 Influenza vaccinatio n given [facility] Start: 11-29-2018 End: 11-29-2018 Office Visit 11/29/2018 Office Visit Primary Care Duncan Gonzalez MD [address] [place] [address] [address] [place] [address] [facility] Start: 04-14-2018 Influenza vaccination SEQUENTI AL INFLUENZA VACCINE (Season Ended) [facility] Start: 04-14-2018 Influenza vaccinatio n given SEQUENTIAL INFLUENZA VACCINE (#1) [facility] Start: 04-14-2017 SEQUENTIAL INFLUENZA VACCINE (#1) SEQUENTIAL INFLUENZA VACCINE (#1) [facility] Work Phone: Start: 2012 Third diphtheria, te tanus and acellular pertussis (DTaP) vaccination TDAP (ADULT) [facility] Start: 01-01-2012 Hepatitis C antibody , confirmatory test Hepatitis C Screening [facility] Start: 01-01-2012 Hepatitis C screening Hepatitis C Sc reening [facility] Start: 01-01-2012 Tetanus vaccination TETANUS [facility] Start: 2009 COVID-19 VACCINE (1) COVID-19 VACCIN E (1) [facility] Start: 2008 HIV screening [facility] Start: 2006 HIV screening HIV SCREENING DISCUSSION [facility] Start: 2005 COVID-19 VACCINE (1) COVID-19 VACCIN E (1) [facility] Start: 2004 Vaccination for sandeep n papillomavirus HPV VACCINE ADOL (1 - Male 2-dose series) [facility] Start: 2000 DTaP/Tdap/Td Vaccine (1 - Tdap) DTaP/Tdap/Td Vaccine (1 - Tdap) [facility] Start: 2000 DTaP/Tdap/Td VACCINE S (1 - Tdap) DTaP/Tdap/Td VACCINES (1 - Tdap) [facility] Start: 01-01-2000 PNEUMOCOCCAL VACCINE SERIES (1 - PCV) PNEUMOCOCCAL VACCINE SERIES (1 - PCV) [facility] Start: 01-01-2000 PNEUMOCOCCAL VACCINE SERIES (1 of 2 - PPSV23) PNEUMOCOCCAL VACCINE SERIES (1 of 2 - PPSV23) [facility] Start: 01-01-2000 Pneumococcal Vaccine : Ped or At-Risk (1 - PCV) Pneumococcal Vaccine: Ped or At-Risk (1 - PCV) [facility] Start: 01-01-2000 Pneumococcal Vaccine : Ped or At-Risk (1 of 2 - PCV) Pneumococcal Vaccine: Ped or At-Risk (1 of 2 - PCV) [facility] Start: 01-01-2000 Pneumococcal Vaccine : Ped or At-Risk (1 of 2 - PPSV23) Pneumococcal Vaccine: Ped or At-Risk (1 of 2 - PPSV23) [facility] Start: 1998 COVID-19 VACCINE (1) COVID-19 VACCIN E (1) [facility] Start: 1996 History and physical examination, annual for health maintenance Wellness Visit [facility] Start: 1994 MMR Vaccine (1 of 1 - Standard series) MMR Vaccine (1 of 1 - Standard series) [facility] Start: 1994 MMR VACCINES (1 of 1 - Standard series) MMR VACCINES (1 of 1 - Standard series) [facility] Start: 1994 Varicella Vaccine (1 of 2 - 2-dose childhood series) Varicella Vaccine (1 of 2 - 2-dose childhood series) [facility] Start: 1994 VARICELLA VACCINES ( 1 of 2 - 2-dose childhood series) VARICELLA VACCINES (1 of 2 - 2-dose childhood series) [facility] Start: 07-03-1994 COVID-19 VACCINE (#1) COVID-19 VACCI NE (#1) [facility] Start: 1993 Depression screening using PHQ-9 (Patient Health Questionnaire 9) score DEPRESSION SCREENING (PHQ9) [facility] Start: 1993 Hepatitis B Vaccine (1 of 3 - 3-dose series) Hepatitis B Vaccine (1 of 3 - 3-dose series) [facility] Start: 1993 HEPATITIS B VACCINES (1 of 3 - 3-dose series) HEPATITIS B VACCINES (1 of 3 - 3-dose series) [facility] Start: 1993 Hepatitis C antibody , confirmatory test HEPATITIS C VIRUS SCREENING [facility] Start: 1993 Hepatitis C screening HEPATITI S C VIRUS SCREENING [facility] Start: 1993 TETANUS EVERY 10 YR TETANUS EVERY 10 YR [facility] Work Phone: Start: 1993 Tetanus vaccination [facility] End: 11-25-2019 Bacteria identified Aer cx Nom (Unsp spec) Urine Aerobic Culture Routine Urinary frequency 1 Occurrences starting 11/24/2018 until 11/25/2019 [facility] Comment on above: 1 Occurrences starti ng 11/24/2018 until 11/25/2019 End: 02-18-2023 Comprehensive metabolic 2000 panel - Serum or Plasma [facility] Work Phone: Comment on above: 1 Occurrences starti ng 02/18/2022 until 02/18/2023 End: 02-18-2023 Hemoglobin A1c/Hemoglobin.total in Blood [facility] Comment on above: 1 Occurrences starti ng 02/18/2022 until 02/18/2023 End: 02-18-2023 Hepatitis C antibody measurement [facility] Comment on above: 1 Occurrences starti ng 02/18/2022 until 02/18/2023 End: 02-18-2023 Human immunodeficiency virus antibody test [facility] Comment on above: 1 Occurrences starti ng 02/18/2022 until 02/18/2023 End: 02-18-2023 Lipid 1996 panel - Serum or Plasma [facility] Comment on above: 1 Occurrences starti ng 02/18/2022 until 02/18/2023 End: 09-11-2018 S. pyogenes Org specific cx Ql (Throat) Strep A Culture, Throat AL Once for 1 Occurrences starting 09/11/2018 until 09/11/2018, 1 completed [facility] Comment on above: Once for 1 Occurrenc es starting 09/11/2018 until 09/11/2018, 1 completed S. pyogenes Org spec ific cx Ql (Throat) Strep A Culture, Throat Routine 09/11/2018 12:44 PM EST [facility] End: 06-07-2022 SARS-CoV-2 (COVID-19) RdRp gene [Presence] in Respiratory specimen by MARCIO with probe detection COVID-19, Molecular Microbiology Routine Sinus congestion 1 Occurrences starting 06/07/2021 until 06/07/2022 [facility] Work Phone: Comment on above: 1 Occurrences starti ng 06/07/2021 until 06/07/2022 SARS-CoV-2 (COVID-19 ) RdRp gene [Presence] in Respiratory specimen by MARCIO with probe detection COVID-19, Molecular Microbiology Routine Sinus congestion 06/07/2021 2:42 PM EDT [facility] End: 06-08-2020 Standard ECG ECG ECG Routine One Time for 1 Occurrences starting 06/08/2020 until 06/08/2020 [facility] Comment on above: One Time for 1 Occur rences starting 06/08/2020 until 06/08/2020 Payers Date Payer Category Payer Medicaid [id number] 2020 Medicaid [id number] 2020 Medicaid [id number] 2020 Medicaid (Managed Care) [facility] PL[facility] [id number] 2020 Medicaid [id number] 2017 Medicaid [employer] [facility] MEDICAID [employer]ICA[employer] xxxxxxxxxxx 2017-Present [id number] 2017 Unknown [id number] 1993 Unknown [id number]. 90 1993 Unknown [id number] [id number]. 90 1993 Unknown [id number] [id number]. 900 1993 Unknown [id number] [id number]. 90 1993 Unknown [id number] [id number]. 90 1993 Unknown [id number] [id number]. 430 1993 Unknown [id number] [id number]. 478 1993 Unknown [id number] 2.16.840.1.347397.3.579.2. 478 1993 Unknown [id number] [id number]. 478 1993 Unknown [id number] 2.16.840.1.841629.3.579.2. 478 1993 Unknown [id number] 2.16.840.1.950875.3.579.2. 478 1993 Unknown [id number] 2.16.840.1.301179.3.579.2. 478 1993 Unknown [id number] 2.16.840.1.027593.3.579.2. 478 1993 Unknown [id number] 2.16.840.1.413134.3.579.2. 478 1993 Unknown [id number] [id number]. 903 1993 Unknown [id number] [id number]. 903 Medicaid [id number] Social History Date Type Detail Facility Start: 01-17-2018 End: 05-30-2024 Tobacco smoking status NCIS Current every day smoker [facility] History of tobacco use Cigarette Smoker O [facility] Work Phone: Start: 01-17-2018 End: 02-18-2022 Cigarettes smoked current (pack per day) - Reported [facility] Phone: History of tobacco use Chews Tobacco [facility] Start: 1993 Sex Assigned At Not on file [facility] Phone: Start: 03-23-2016 Alcohol Comment social drinker [facility] Start: 07-07-2019 End: 06-14-2024 Alcohol intake Current drinker of alcohol (finding) [facility] Start: 06-19-2020 End: 05-30-2024 Tobacco use and exposure Former user [facility] Start: 06-19-2020 End: 02-18-2022 History SDOH Alcohol Frequency 2 [facility] Start: 06-19-2020 Alcohol Comment social drinker, every 3 months [facility] Start: 11-06-2021 End: 12-16-2022 Exposure to SARS-CoV-2 (event) Not sure [facility] Start: 02-13-2021 End: 01-05-2023 Tobacco use and exposure Never used [facility] Start: 06-19-2020 History SDOH Alcohol Comment social drinker, every 3 months [facility] Start: 10-02-2021 End: 02-10-2022 Exposure to SARS-CoV-2 (event) Unable to assess [facility] Start: 02-18-2022 History SDOH Social Connections Phone 5 [facility] [facility] Start: 02-18-2022 History SDOH Social Connections [facility] Start: 02-18-2022 History SDOH Social Connections Living 3 [facility] Start: 02-08-2022 End: 02-18-2022 Exposure to SARS-CoV-2 (event) Yes [facility] Start: 02-18-2022 End: 06-14-2024 Social connection and isolation panel [facility] Do you belong to any clubs or organizations such as religion groups, unions, fraternal or athletic groups, or school groups? No [facility] Are you now , , , , never or living with a partner? [facility] How often to you hav e a drink containing alcohol? Monthly or less [facility] How many standard dr inks containing alcohol do you have on a typical day? 3 or 4 [facility] Frequency of Binge Drinking Not on file [facility] (I/We) worried bakari er (my/our) food would run out before (I/we) got money to buy more. Sometimes true [facility] Start: 03-22-2018 Gender identity Identifies as male gender (finding) [facility] Start: 03-22-2018 Sexual orientation Heterosexual (finding) [facility] Clinical Notes 06-08-2020 to 06-14-2024 Teja Veliz, KYLE - 06/14/2024 11:17 AM Dipti Haq MA - 06/14/2024 11:11 AM EDTTelephone Encounter - Mary, [place] Hilaria, [facility] - 10/10/2023 11:42 AM ESTPatient InstructionsAttachments Note Date & Type Note Facility 06-14-2024 Note Subjective NEW PATIENT Complaint: the right foot/patient went to ed 05/30/24 because her kicked the couch and hurt his big toe. ED gave him surgical shoe to wear but patient states the shoe made it hurt more. Treatment: ED, x rays Employer: [employer] Type of Shoes: casual Exercise/Sports: no PCP: No, Physician Referred by: Self Referred Patient ID: Lesley Heller is a 28 y.o. male. HPI As above. The great toe, which has the fracture, is not really painful. He has had pain in the toes 2/3 of the Right foot. The following portions of the patient's history were reviewed and updated as appropriate: He has a past medical history of ADHD, Back pain, Dyslexia, Heart murmur, Knee pain, Right forearm fracture, Toeing-in, and Tremors of nervous system. He does not have any pertinent problems on file. He has a past surgical history that includes adenoidectomy and tonsillectomy. His family history includes Diabetes in his maternal grandmother; Heart disease in his paternal grandfather; Hypertension in his mother; Restless legs syndrome in his mother. He reports that he has been smoking cigarettes. He has a 5.5 pack-year smoking history. He has quit using smokeless tobacco. His smokeless tobacco use included chew. He reports current alcohol use of about 1.0 - 2.0 standard drink of alcohol per week. He reports that he does not use drugs. Current Outpatient Medications Medication Sig Dispense Refill ibuprofen (ADVIL,MOTRIN) 800 MG tablet Take 1 (one) tablet (800 mg total) by mouth every 6 (six) hours as needed for pain . 30 tablet 0 No current facility-administered medications for this visit. He is allergic to penicillin g.. Review of Systems Objective LE Physical Exam: VASCULAR: DP pulse palpable, bilaterally and PT pulse palpable, bilaterally. CFT < 3 sec to all digits bilateral lower extremities. Pedal hair growth present, bilaterally. No pallor on elevation or rubor on dependency. Skin temperature warm to warm from tibial tuberosity distally. Pedal edema is not noted bilaterally. NEUROLOGICAL: Light touch sensation intact to the level of the digits, bilaterally. Protective sensation 10/10, bilaterally,grossly intact, bilaterally. DERMATOLOGICAL: Skin is warm, dry and supple, B/L. No open wounds or maceration appreciated, bilaterally. MUSCULOSKELETAL: Muscle strength, 5/5, bilaterally. No gross deformities or previous amputations appreciated, bilaterally. AREA OF COMPLAINT: I reviewed x-rays, and demonstrated to the patient. Questions in this regard were asked/answered. I explained the presumed pathology. There is a fracture of the hallux, which is not painful. Physical Exam Assessment/Plan: Diagnoses and all orders for this visit: Closed nondisplaced fracture of distal phalanx of right great toe, initial encounter The x-ray of the toes is fine. I discussed soft tissue injury and recommend taping the toes together. Will rtc prn. AUTHENTICATED BY TEJA VELIZ, ON 06/16/2024 16:26:[address] [facility] 06-14-2024 History of Presen t illness Narrative Subjective NEW PATIENT Complaint: the right foot/patient went to ed 05/30/24 because her kicked the couch and hurt his big toe. ED gave him surgical shoe to wear but patient states the shoe made it hurt more. Treatment: ED, x rays Employer: [employer] Type of Shoes: casual Exercise/Sports: no PCP: No, Physician Referred by: Self Referred Patient ID: Lesley Heller is a 28 y.o. male. HPI As above. The great toe, which has the fracture, is not really painful. He has had pain in the toes 2/3 of the Right foot. The following portions of the patient's history were reviewed and updated as appropriate: He has a past medical history of ADHD, Back pain, Dyslexia, Heart murmur, Knee pain, Right forearm fracture, Toeing-in, and Tremors of nervous system. He does not have any pertinent problems on file. He has a past surgical history that includes adenoidectomy and tonsillectomy. His family history includes Diabetes in his maternal grandmother; Heart disease in his paternal grandfather; Hypertension in his mother; Restless legs syndrome in his mother. He reports that he has been smoking cigarettes. He has a 5.5 pack-year smoking history. He has quit using smokeless tobacco. His smokeless tobacco use included chew. He reports current alcohol use of about 1.0 - 2.0 standard drink of alcohol per week. He reports that he does not use drugs. Current Outpatient Medications Medication Sig Dispense Refill ibuprofen (ADVIL,MOTRIN) 800 MG tablet Take 1 (one) tablet (800 mg total) by mouth every 6 (six) hours as needed for pain . 30 tablet 0 No current facility-administered medications for this visit. He is allergic to penicillin g.. Review of Systems Objective LE Physical Exam: VASCULAR: DP pulse palpable, bilaterally and PT pulse palpable, bilaterally. CFT < 3 sec to all digits bilateral lower extremities. Pedal hair growth present, bilaterally. No pallor on elevation or rubor on dependency. Skin temperature warm to warm from tibial tuberosity distally. Pedal edema is not noted bilaterally. NEUROLOGICAL: Light touch sensation intact to the level of the digits, bilaterally. Protective sensation 10/10, bilaterally,grossly intact, bilaterally. DERMATOLOGICAL: Skin is warm, dry and supple, B/L. No open wounds or maceration appreciated, bilaterally. MUSCULOSKELETAL: Muscle strength, 5/5, bilaterally. No gross deformities or previous amputations appreciated, bilaterally. AREA OF COMPLAINT: I reviewed x-rays, and demonstrated to the patient. Questions in this regard were asked/answered. I explained the presumed pathology. There is a fracture of the hallux, which is not painful. Physical Exam Assessment/Plan: Diagnoses and all orders for this visit: Closed nondisplaced fracture of distal phalanx of right great toe, initial encounter The x-ray of the toes is fine. I discussed soft tissue injury and recommend taping the toes together. Will rtc prn. NEW PATIENT Complaint: the right foot/patient went to ed 05/30/24 because her kicked the couch and hurt his big toe. ED gave him surgical shoe to wear but patient states the shoe made it hurt more. Treatment: ED, x rays Employer: [employer] Type of Shoes: casual Exercise/Sports: no PCP: No, Physician Referred by: Self Referred documented in this encounter [facility] 10-10-2023 Telephone encounter Note Shared with Mr. 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 I explained the basics of cystic fibrosis (CF) and it's inheritance. We discussed that carriers are not expected to have health effects, but are at risk to have affected children if their partner is also a CF carrier. All of his other children are at 50% risk to be CF carriers also. At his request I will mail his results and some information about being a CF carrier. Hilaria Hernandez Genetic Counselor [facility] 10-10-2023 Miscellaneous Notes Shared with Mr. 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 I explained the basics of cystic fibrosis (CF) and it's inheritance. We discussed that carriers are not expected to have health effects, but are at risk to have affected children if their partner is also a CF carrier. All of his other children are at 50% risk to be CF carriers also. At his request I will mail his results and some information about being a CF carrier. Hilaria Hernandez Genetic Counselor documented in this encounter [facility] 06-19-2023 History of Presen t illness Narrative Pt reports he has been fighting a cold x2-3 weeks. Cough now causing pain when he coughs. Denies lightheaded, dizziness, blurry vision. [facility] PATIENT NAME: Lesley Heller DATE OF : 1995 DATE OF VISIT: 06/19/2023 PROVIDER: Cecy Miguel NP HISTORY OF PRESENT ILLNESS: Lesley Heller is a 27 y.o. male who is presenting today with Cough Patient states that he has had upper respiratory symptoms for 3 weeks. He has been fighting it without any taff-lce-fbedvrc medications. He states that over the last few days he is developed a cough that is burning and hurting his chest when he coughs. He states that most of his upper respiratory symptoms have improved but is still slightly congested. He denies any fevers. He is a class b truck driver. He is no known exposures. Has gotten a sinus infection usually once a year. VITAL SIGNS: Vitals: 06/19/23 1614 BP: (!) 151/101 Pulse: 87 Resp: 18 Temp: 97.6 degrees F (36.4 degrees C) SpO2: 99% ALLERGIES: Penicillins MEDICATIONS: Outpatient Medications Prior to Visit Medication Sig Dispense Refill albuterol 108 (90 Base) MCG/ACT Aero Soln inhaler Inhale 2 puffs every 4 hours as needed for Wheezing. (Patient not taking: Reported on 10/12/2021) 1 Inhaler 0 cyclobenzaprine 10 MG tablet Take 1 tablet by mouth 3 times daily as needed for Muscle spasms. (Patient not taking: Reported on 10/12/2021) 21 tablet 0 erythromycin 5 MG/GM Ointment ophthalmic ointment 1/2 inch to affected eye(s) QID for 5-7 days (Patient not taking: Reported on 12/07/2022) 3.5 g 0 Meloxicam 15 MG tablet Take 1 tablet by mouth daily. 30 tablet 0 naproxen 500 MG tablet Take 1 tablet by mouth 2 times daily as needed. (Patient not taking: Reported on 10/12/2021) 30 tablet 0 No facility-administered medications prior to visit. PAST MEDICAL HISTORY: No past medical history on file. PAST SURGICAL HISTORY: No past surgical history on file. FAMILY HISTORY: Family History Problem Relation Age of Onset Hypertension Mother SOCIAL HISTORY: Social History Tobacco Use Smoking status: Every Day Packs/day: .5 Types: Cigarettes Smokeless tobacco: Never Substance Use Topics Alcohol use: Yes REVIEW OF SYSTEMS: Review of Systems Constitutional: Negative. Negative for fatigue and fever. HENT: Positive for congestion. Negative for sinus pressure, sinus pain and sore throat. Eyes: Negative. Respiratory: Positive for cough. Negative for shortness of breath. Cardiovascular: Negative. Gastrointestinal: Negative. Genitourinary: Negative. Musculoskeletal: Negative. Skin: Negative. Neurological: Negative. Psychiatric/Behavioral: Negative. All other systems reviewed and are negative. PHYSICAL EXAM: Physical Exam Vitals and nursing note reviewed. Constitutional: General: He is not in acute distress. Appearance: Normal appearance. HENT: Head: Normocephalic. Right Ear: Tympanic membrane is erythematous. Left Ear: Tympanic membrane is erythematous. Mouth/Throat: Pharynx: Posterior oropharyngeal erythema present. No oropharyngeal exudate. Eyes: Extraocular Movements: Extraocular movements intact. Pupils: Pupils are equal, round, and reactive to light. Cardiovascular: Rate and Rhythm: Normal rate and regular rhythm. Pulses: Normal pulses. Heart sounds: Normal heart sounds. Pulmonary: Effort: Pulmonary effort is normal. Breath sounds: Rhonchi present. No wheezing. Comments: Intermittent dry cough Abdominal: General: Bowel sounds are normal. Neurological: Mental Status: He is alert and oriented to person, place, and time. Mental status is at baseline. Psychiatric: Mood and Affect: Mood normal. LAB RESULTS: No results found for this or any previous visit (from the past 2 hour(s)). ASSESSMENT & PLAN: Lesley was seen today for cough. Diagnoses and all orders for this visit: Acute upper respiratory infection Other orders - Azithromycin 250 MG tablet; Take by mouth 2 tablets (500 mg) on Day 1, then 1 tablet (250 mg) daily on Days 2-5 - benzonatate 100 MG capsule; Take 1 capsule by mouth 3 times daily as needed for Cough. Patient Instructions Thank you for allowing us to care for you. We would love to have you complete your post visit survey with 5 stars. If you feel you cannot, please tell us now how to make that possible. Symptoms are consistent with a bacterial infection that has overtaken a viral illness. Please take the antibiotics as directed. Take over the counter cough/congestion medicine as directed. Cepacol lozenges are helpful for throat pain. Tylenol or motrin (with food) every 6 hours as needed for fevers or pain. Drink extra amounts of fluids and more often. Return for a recheck if not improving after 3 days of antibiotics. Go directly to the ER if rapidly worsening symptoms with difficulty breathing. Medical Decision Making: patient states that he has tolerated azithromycin in the past that has proved in symptoms. We will give antitussive at this time. Discussed increasing fluids and using [id number] medications as needed documented in this encounter [facility] [place] Phone: 06-19-2023 Instructions Cecy Miguel NP - 06/19/2023 3:35 PM EST Thank you for allowing us to care for you. We would love to have you complete your post visit survey with 5 stars. If you feel you cannot, please tell us now how to make that possible. Symptoms are consistent with a bacterial infection that has overtaken a viral illness. Please take the antibiotics as directed. Take over the counter cough/congestion medicine as directed. Cepacol lozenges are helpful for throat pain. Tylenol or motrin (with food) every 6 hours as needed for fevers or pain. Drink extra amounts of fluids and more often. Return for a recheck if not improving after 3 days of antibiotics. Go directly to the ER if rapidly worsening symptoms with difficulty breathing. The following attachments cannot be sent through Care Everywhere.URI (Upper Respiratory Infection) (Eritrean)documented in this encounter [facility] [place] Phone: 05-18-2023 History of Presen t illness Narrative A user error has taken place: encounter opened in error, closed for administrative reasons. documented in this encounter [facility] 12-16-2022 History of Presen t illness Narrative Assessment/Plan: Problem List Items Addressed This Visit None Visit Diagnoses Physical exam, pre-employment - Primary Meets 2 yr criteria for DOT certificate. Relevant Orders POC Urinalysis Dipstick, Auto (Completed) No follow-ups on file. Subjective: Patient ID: Lesley Heller is a 26 y.o. male. 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 Review of Systems Constitutional: Negative for chills and fever. Respiratory: Negative for cough, chest tightness and shortness of breath. Cardiovascular: Negative for chest pain and leg swelling. Gastrointestinal: Negative for abdominal pain. No current outpatient medications on file. Past Medical History: Diagnosis Date ADHD 13 yo stopped taking it Back pain Dyslexia Heart murmur Knee pain Right forearm fracture 1st grade Toeing-in Tremors of nervous system Past Surgical History: Procedure Laterality Date ADENOIDECTOMY TONSILLECTOMY Tobacco & Smokeless: Tobacco Use Smoking status: Every Day Packs/day: 0.50 Years: 11.00 Pack years: 5.5 Types: Cigarettes Smokeless tobacco: Former Types: Chew Vaping Use Vaping Use: Some days Substances: Nicotine Devices: Disposable Social History Substance and Sexual Activity Drug Use No Social History Substance and Sexual Activity Alcohol Use Yes Alcohol/week: 1.0 - 2.0 standard drink of alcohol Types: 1 - 2 Cans of beer per week Comment: social drinker, every 3 months Objective: BP 127/85 (BP Location: Left arm, Patient Position: Sitting, BP Cuff Size: Adult) Pulse 82 Temp 96.8 F (36 C) (Temporal) Ht 5' 8 Wt 106.2 kg (234 lb 3.2 oz) SpO2 97% BMI 35.61 kg/m Physical Exam Vitals and nursing note reviewed. Constitutional: General: He is not in acute distress. Appearance: He is well-developed. He is not diaphoretic. HENT: Head: Normocephalic and atraumatic. Mouth/Throat: Pharynx: No oropharyngeal exudate. Eyes: Conjunctiva/sclera: Conjunctivae normal. Pupils: Pupils are equal, round, and reactive to light. Comments: Able to discern red/geen/yellow from printed [id number] stoplight. Cardiovascular: Rate and Rhythm: Normal rate and regular rhythm. Heart sounds: Normal heart sounds. No murmur heard. No friction rub. No gallop. Pulmonary: Effort: Pulmonary effort is normal. No respiratory distress. Breath sounds: Normal breath sounds. No wheezing or rales. Chest: Chest wall: No tenderness. Abdominal: General: Bowel sounds are normal. There is no distension. Palpations: Abdomen is soft. There is no mass. Tenderness: There is no abdominal tenderness. There is no guarding or rebound. Musculoskeletal: General: No tenderness or deformity. Normal range of motion. Right hand: Normal range of motion. Normal strength. Left hand: Normal range of motion. Normal strength. Cervical back: Normal range of motion. Skin: General: Skin is warm and dry. Findings: No rash. Neurological: Mental Status: He is alert and oriented to person, place, and time. Cranial Nerves: No cranial nerve deficit. Coordination: Coordination normal. Deep Tendon Reflexes: Reflexes normal. Psychiatric: Behavior: Behavior normal. Thought Content: Thought content normal. Judgment: Judgment normal. documented in this encounter [facility] 12-07-2022 History of Presen t illness Narrative PATIENT NAME: Lesley Heller Urgent care. : 1995 DATE OF VISIT: 12/07/2022 #: [id number] PROVIDER: Rebecca Barney Lesley Heller is a 26 y.o. male who presents with Finger Pain (Pt reports symptomatic since 3mo ago: left index finger pain. Pt states does not remember what happened.) HPI WITH ASSESSMENT AND PLAN: Three months of pain in the left 2nd digit over the proximal phalanx. He does not remember any trauma to the area. He denies any redness or rash the area. He is never to his nontender broken bone in the area. He states he does have pain with flexion of the finger at sometimes pops. VISIT SUMMARY: Lesley was seen today for finger pain. Diagnoses and all orders for this visit: Pain in finger of left hand - XR FINGER 2ND LEFT No results found for this or any previous visit (from the past 2 hour(s)). Condition and plan discussed with patient in detail. Patient agrees with plan and verbalizes no questions or concerns. Risk, benefits, and side effects of medicines discussed with the patient, and patient agrees with plan. For any new medications prescribed today, patient was educated about indications for the medication, how to take the medication, and potential side effects of the medication. Follow up: No follow-ups on file. Please follow up with your Primary Care Provider (listed below): Name: Dami Abdi Address: [address] [place] [address] [address] [facility] [id number] Keep the following upcoming appointments: No future appointments. The following portions of the patient's history were reviewed and updated as appropriate: allergies, current medications, past family history, past medical history, past social history, and past surgical history. PAST HISTORY: No past medical history on file. No past surgical history on file. Current Outpatient Medications Medication Sig Dispense Refill albuterol 108 (90 Base) MCG/ACT Aero Soln inhaler Inhale 2 puffs every 4 hours as needed for Wheezing. (Patient not taking: Reported on 10/12/2021) 1 Inhaler 0 cyclobenzaprine 10 MG tablet Take 1 tablet by mouth 3 times daily as needed for Muscle spasms. (Patient not taking: Reported on 10/12/2021) 21 tablet 0 erythromycin 5 MG/GM Ointment ophthalmic ointment 1/2 inch to affected eye(s) QID for 5-7 days (Patient not taking: Reported on 12/07/2022) 3.5 g 0 IBUPROFEN PO Take by mouth. (Patient not taking: Reported on 02/07/2022) naproxen 500 MG tablet Take 1 tablet by mouth 2 times daily as needed. (Patient not taking: Reported on 10/12/2021) 30 tablet 0 No current facility-administered medications for this visit. Allergies Allergen Reactions Penicillins Hives Other reaction(s): AOF Tobacco History: reports that he has been smoking. He has been smoking an average of .5 packs per day. He has never used smokeless tobacco. He reports current alcohol use. He reports that he does not use drugs. ROS: Review of Systems Constitutional: Negative for activity change, appetite change, chills, diaphoresis, fatigue and fever. HENT: Negative for congestion, ear pain, rhinorrhea, sinus pain and sore throat. Eyes: Negative for discharge and redness. Respiratory: Negative for cough, chest tightness, shortness of breath and wheezing. Cardiovascular: Negative for chest pain, palpitations and leg swelling. Gastrointestinal: Negative for abdominal pain, diarrhea and nausea. Endocrine: Negative for polyuria. Genitourinary: Negative for dysuria. Musculoskeletal: Negative for myalgias. Skin: Negative for rash. Neurological: Negative for dizziness, numbness and headaches. Psychiatric/Behavioral: Negative for confusion. PHYSICAL EXAM: Vitals: 12/07/222002 BP: (!) 132/93 Pulse: 82 Resp: 17 Temp: 98.6 degrees F (37 degrees C) TempSrc: Temporal SpO2: 99% Physical Exam Vitals and nursing note reviewed. Constitutional: Appearance: Normal appearance. HENT: Head: Normocephalic. Eyes: Extraocular Movements: Extraocular movements intact. Pupils: Pupils are equal, round, and reactive to light. Cardiovascular: Rate and Rhythm: Normal rate and regular rhythm. Pulses: Normal pulses. Heart sounds: Normal heart sounds. Pulmonary: Effort: Pulmonary effort is normal. Breath sounds: Normal breath sounds. Musculoskeletal: General: Normal range of motion. Cervical back: Normal range of motion. Comments: Left 2nd digit with no erythema, ecchymosis, edema. Does have some pain to palpation over the proximal phalanx and PIP joint. No pain over the MCP joint or distal phalanx. He is able to flex & extend his finger. Normal sensation. Skin: General: Skin is warm. Neurological: General: No focal deficit present. Mental Status: He is alert and oriented to person, place, and time. Psychiatric: Mood and Affect: Mood normal. Behavior: Behavior normal. Thought Content: Thought content normal. Judgment: Judgment normal. Xray showed no acute abnormalities documented in this encounter [facility] Phone: 02-18-2022 History of Presen t illness Narrative (GC) I have personally seen and examined the patient independently of the resident physician. I have reviewed the history, physical, diagnosis and care plan with the resident physician, Ludwig Gannon DO. I confirm the assessment and treatment plan: Diagnoses and all orders for this visit: Well adult exam Tobacco dependence- Discussed tobacco cessation Sleep disturbance- Advised to increase Melatonin. Screening for diabetes mellitus - Comprehensive Metabolic Panel; Future - Hemoglobin A1c; Future Screening for HIV (human immunodeficiency virus) - HIV Antibody (HIV1/HIV2); Future Encounter for hepatitis C screening test for low risk patient - Hepatitis C Antibody; Future Screening for lipid disorders - Lipid Panel; Future Becca Morris MD Lesley Heller is a 26 y.o. year old male with a hx of a heart murmur and tobacco use who presents for full history and physical. Assessment/Plan: Diagnoses and all orders for this visit: Well adult exam - Comprehensive Metabolic Panel; Future - Hemoglobin A1c; Future - Lipid Panel; Future - HIV Antibody (HIV1/HIV2); Future - Hepatitis C Antibody; Future - discussed exercise and diet habits with the patient, and encouraged him to find different activities other than work-related that he enjoys doing for exercise. I also explained to the patient that he should look for healthy diet options with respect to his midday snack of a lunchable and larger singular meal at night. - I also discussed with the patient COVID vaccinations as well as a pneumococcal vaccine, but he declined both stating that he usually does not get annual vaccines. I let him know that if he were ever to change his mind that he could receive these vaccines in our clinic. Tobacco abuse - Patient currently smokes 0.5 packs/day. He states that he has smoked since the age of 10, and that it has progressively increased over the past few years. I did certified personal finance counselor the patient on the dangers and risks of smoking tobacco and did recommend smoking cessation. I did let him know that if he were to ever want to look into quitting smoking that I am able to aid and guide him with respect to treatment and management of this. Sleep disturbance - I explained to the patient that he can continue to use melatonin to help with the act of falling asleep, and that he can increase the dosage up to 20 mg use nightly. If his sleeping issues persist past the next couple weeks/months, I advised the patient to schedule a closer follow-up visit with me in order to discuss if there is other investigation/evaluation/manage ment that should be performed. Screening for diabetes mellitus - Comprehensive Metabolic Panel; Future - Hemoglobin A1c; Future Screening for HIV (human immunodeficiency virus) - HIV Antibody (HIV1/HIV2); Future Encounter for hepatitis C screening test for low risk patient - Hepatitis C Antibody; Future Screening for lipid disorders - Lipid Panel; Future *The patient follow-up in the clinic in 1 year in order to have his repeat physical exam and blood work performed/collected* The patient will call with questions, concerns and for changing symptoms. For any new medications prescribed today, patient was educated about indications for the medication, how to take the medication and potential side effects of the medications. Patient Name: Lesley Heller Date: 02/18/22 Patient : 1995 Patient Age: 26 y.o. CC: Chief Complaint Patient presents with Annual Exam Stated has been having issues with BP being higher than normal (around 190s and up, lower number around 90) Pt stated DM and HTN run in the family SUBJECTIVE 26 y.o. year old male with a hx of a heart murmur and tobacco use who presents for full history and physical. Overall the patient is doing well and has no acute medical concerns. The patient did want to talk today about a family history of diabetes and hypertension that runs mostly on his mother side, and questions on blood work that he should get in order to screen for these conditions. The patient did bring up the fact that he has had some issues with sleep lately, where he is unable to fully fall asleep. He says that even when he is fully exhausted and lays in bed he is unable to fall asleep. He has attempted to start melatonin and states that it intermittently works, but there are times where he does not fall asleep. Otherwise, the patient denies any recent chest pain, shortness of breath, ill symptoms, or any other concerning symptoms. Diet Typical Foods: eats 1-2 times per deal. Red meats or lean protein, veggies, complex carbs, occasional snack with lunchables or cheese and crackers Drinks: water, pop (mountain dew) What they think they could do better: patient states that he is happy with his diet currently Caffeine: 3-4 cans of pop per day Substances Alcohol: rare, 1x every 6 months Tobacco products: current smoker, 0.5 PPD for 12 years Marijuana: none Other: none Exercise Activities: work on cars, walking Days per week: 7 days per week Sexual Hx Sexually Active: yes What are the genders of people you have sex with: female Number partners in past year: 1 Condom use: none STI Screening: no active concerns DV: none Vaccinations: Tdap: last received in 2012 Flu: has not received in the last 2-3 years COVID-19: none Health maintenance: Blood pressure: 119/78 HLD screening: never had labs drawn, no known family history of HLD Has an eye doctor: last seen 02/15/22 (piece of metal stuck in eye) Has a dentist: last seen in 2020 Today's PHQ9 PHQ-9 Total Score: 5 If you checked off any problems, how difficult have these problems made it for you to do your work, take care of things at home, or get along with other people?: Somewhat difficult Review of Systems Constitutional: Negative for fatigue, fever and unexpected weight change. HENT: Negative for congestion, rhinorrhea, sinus pressure, sinus pain and sore throat. Respiratory: Negative for cough, chest tightness and shortness of breath. Cardiovascular: Negative for chest pain, palpitations and leg swelling. Gastrointestinal: Negative for diarrhea, nausea and vomiting. Musculoskeletal: Negative for arthralgias, back pain and myalgias. Skin: Negative for color change, pallor and rash. Neurological: Negative for dizziness, weakness, numbness and headaches. Psychiatric/Behavioral: Negative for agitation and sleep disturbance. The patient is not nervous/anxious. Past Medical History: Diagnosis Date ADHD 13 yo stopped taking it Back pain Dyslexia Heart murmur Knee pain Toeing-in Tremors of nervous system Past Surgical History: Procedure Laterality Date ADENOIDECTOMY TONSILLECTOMY Allergies: Penicillin g Current Outpatient Medications Medication Sig Dispense Refill ibuprofen 200 mg cap Take by mouth . No current facility-administered medications for this visit. Social History Socioeconomic History Marital status: Tobacco Use Smoking status: Every Day Packs/day: 0.50 Years: 11.00 Pack years: 5.50 Types: Cigarettes Smokeless tobacco: Former Types: Chew Vaping Use Vaping Use: Never used Substance and Sexual Activity Alcohol use: Yes Alcohol/week: 1.0 - 2.0 standard drink Types: 1 - 2 Cans of beer per week Comment: social drinker, every 3 months Drug use: No Sexual activity: Yes Partners: Female Family History Problem Relation Age of Onset Hypertension Mother Restless legs syndrome Mother Diabetes Maternal Grandmother Heart disease Paternal Grandfather OBJECTIVE Vitals: 02/18/22 1524 BP: 119/78 Pulse: 99 Resp: 18 Temp: 98.4 F (36.9 C) TempSrc: Temporal SpO2: 96% Weight: 98.1 kg (216 lb 4.8 oz) Height: 5' 8 Wt Readings from Last 3 Encounters: 02/18/22 98.1 kg (216 lb 4.8 oz) 08/27/20 90.7 kg (200 lb) 06/19/20 89.9 kg (198 lb 3.2 oz) Ht Readings from Last 3 Encounters: 02/18/22 5' 8 08/27/20 5' 8 06/19/20 5' 9.09 Body mass index is 32.89 kg/m . Facility age limit for growth percentiles is 20 years. Facility age limit for growth percentiles is 20 years. Facility age limit for growth percentiles is 20 years. Physical Exam Constitutional: General: He is not in acute distress. Appearance: Normal appearance. He is not ill-appearing. HENT: Head: Normocephalic and atraumatic. Eyes: General: Right eye: No discharge. Left eye: No discharge. Extraocular Movements: Extraocular movements intact. Cardiovascular: Rate and Rhythm: Normal rate and regular rhythm. Pulses: Normal pulses. Heart sounds: Murmur heard. No friction rub. No gallop. Comments: Subtle 2 out of 6 systolic murmur appreciated at right sternal border Pulmonary: Effort: Pulmonary effort is normal. Breath sounds: Normal breath sounds. No wheezing, rhonchi or rales. Abdominal: General: Abdomen is flat. Bowel sounds are normal. Palpations: Abdomen is soft. Tenderness: There is no abdominal tenderness. Musculoskeletal: General: No swelling, tenderness or signs of injury. Normal range of motion. Skin: General: Skin is warm and dry. Coloration: Skin is not jaundiced. Findings: No erythema. Neurological: General: No focal deficit present. Mental Status: He is alert and oriented to person, place, and time. Mental status is at baseline. Psychiatric: Mood and Affect: Mood normal. Behavior: Behavior normal. Thought Content: Thought content normal. Judgment: Judgment normal. Depression Screening 06/19/2020 02/18/2022 Little interest or pleasure in doing things 0 0 Feeling down, depressed, or hopeless 0 0 PHQ-2 Total Score 0 0 Trouble falling or staying asleep, or sleeping too much 1 3 Feeling tired or having little energy 0 2 Poor appetite or overeating 0 0 Feeling bad about yourself - or that you are a failure or have let yourself or your family down 0 0 Trouble concentrating on things, such as reading the newspaper or watching television 0 0 Moving or speaking so slowly that other people could have noticed. Or the opposite - being so fidgety or restless that you have been moving around a lot more than usual 0 0 Thoughts that you would be better off , or of hurting yourself in some way 0 0 PHQ-9 Total Score 1 5 If you checked off any problems, how difficult have these problems made it for you to do your work, take care of things at home, or get along with other people? Somewhat difficult Somewhat difficult documented in this encounter [facility] 02-18-2022 History of Presen t illness Narrative Lesley Heller is a 26 y.o. year old male with a hx of a heart murmur and tobacco use who presents for full history and physical. Assessment/Plan: Diagnoses and all orders for this visit: Well adult exam - Comprehensive Metabolic Panel; Future - Hemoglobin A1c; Future - Lipid Panel; Future - HIV Antibody (HIV1/HIV2); Future - Hepatitis C Antibody; Future - discussed exercise and diet habits with the patient, and encouraged him to find different activities other than work-related that he enjoys doing for exercise. I also explained to the patient that he should look for healthy diet options with respect to his midday snack of a lunchable and larger singular meal at night. - I also discussed with the patient COVID vaccinations as well as a pneumococcal vaccine, but he declined both stating that he usually does not get annual vaccines. I let him know that if he were ever to change his mind that he could receive these vaccines in our clinic. Tobacco abuse - Patient currently smokes 0.5 packs/day. He states that he has smoked since the age of 10, and that it has progressively increased over the past few years. I did certified personal finance counselor the patient on the dangers and risks of smoking tobacco and did recommend smoking cessation. I did let him know that if he were to ever want to look into quitting smoking that I am able to aid and guide him with respect to treatment and management of this. Sleep disturbance - I explained to the patient that he can continue to use melatonin to help with the act of falling asleep, and that he can increase the dosage up to 20 mg use nightly. If his sleeping issues persist past the next couple weeks/months, I advised the patient to schedule a closer follow-up visit with me in order to discuss if there is other investigation/evaluation/manage ment that should be performed. Screening for diabetes mellitus - Comprehensive Metabolic Panel; Future - Hemoglobin A1c; Future Screening for HIV (human immunodeficiency virus) - HIV Antibody (HIV1/HIV2); Future Encounter for hepatitis C screening test for low risk patient - Hepatitis C Antibody; Future Screening for lipid disorders - Lipid Panel; Future *The patient follow-up in the clinic in 1 year in order to have his repeat physical exam and blood work performed/collected* The patient will call with questions, concerns and for changing symptoms. For any new medications prescribed today, patient was educated about indications for the medication, how to take the medication and potential side effects of the medications. Patient Name: Lesley Heller Date: 02/18/22 Patient : 1995 Patient Age: 26 y.o. CC: Chief Complaint Patient presents with Annual Exam Stated has been having issues with BP being higher than normal (around 190s and up, lower number around 90) Pt stated DM and HTN run in the family SUBJECTIVE 26 y.o. year old male with a hx of a heart murmur and tobacco use who presents for full history and physical. Overall the patient is doing well and has no acute medical concerns. The patient did want to talk today about a family history of diabetes and hypertension that runs mostly on his mother side, and questions on blood work that he should get in order to screen for these conditions. The patient did bring up the fact that he has had some issues with sleep lately, where he is unable to fully fall asleep. He says that even when he is fully exhausted and lays in bed he is unable to fall asleep. He has attempted to start melatonin and states that it intermittently works, but there are times where he does not fall asleep. Otherwise, the patient denies any recent chest pain, shortness of breath, ill symptoms, or any other concerning symptoms. Diet Typical Foods: eats 1-2 times per deal. Red meats or lean protein, veggies, complex carbs, occasional snack with lunchables or cheese and crackers Drinks: water, pop (mountain dew) What they think they could do better: patient states that he is happy with his diet currently Caffeine: 3-4 cans of pop per day Substances Alcohol: rare, 1x every 6 months Tobacco products: current smoker, 0.5 PPD for 12 years Marijuana: none Other: none Exercise Activities: work on cars, walking Days per week: 7 days per week Sexual Hx Sexually Active: yes What are the genders of people you have sex with: female Number partners in past year: 1 Condom use: none STI Screening: no active concerns DV: none Vaccinations: Tdap: last received in 2012 Flu: has not received in the last 2-3 years COVID-19: none Health maintenance: Blood pressure: 119/78 HLD screening: never had labs drawn, no known family history of HLD Has an eye doctor: last seen 02/15/22 (piece of metal stuck in eye) Has a dentist: last seen in 2020 Today's PHQ9 PHQ-9 Total Score: 5 If you checked off any problems, how difficult have these problems made it for you to do your work, take care of things at home, or get along with other people?: Somewhat difficult Review of Systems Constitutional: Negative for fatigue, fever and unexpected weight change. HENT: Negative for congestion, rhinorrhea, sinus pressure, sinus pain and sore throat. Respiratory: Negative for cough, chest tightness and shortness of breath. Cardiovascular: Negative for chest pain, palpitations and leg swelling. Gastrointestinal: Negative for diarrhea, nausea and vomiting. Musculoskeletal: Negative for arthralgias, back pain and myalgias. Skin: Negative for color change, pallor and rash. Neurological: Negative for dizziness, weakness, numbness and headaches. Psychiatric/Behavioral: Negative for agitation and sleep disturbance. The patient is not nervous/anxious. Past Medical History: Diagnosis Date ADHD 13 yo stopped taking it Back pain Dyslexia Heart murmur Knee pain Toeing-in Tremors of nervous system Past Surgical History: Procedure Laterality Date ADENOIDECTOMY TONSILLECTOMY Allergies: Penicillin g Current Outpatient Medications Medication Sig Dispense Refill ibuprofen 200 mg cap Take by mouth . No current facility-administered medications for this visit. Social History Socioeconomic History Marital status: Tobacco Use Smoking status: Every Day Packs/day: 0.50 Years: 11.00 Pack years: 5.50 Types: Cigarettes Smokeless tobacco: Former Types: Chew Vaping Use Vaping Use: Never used Substance and Sexual Activity Alcohol use: Yes Alcohol/week: 1.0 - 2.0 standard drink Types: 1 - 2 Cans of beer per week Comment: social drinker, every 3 months Drug use: No Sexual activity: Yes Partners: Female Family History Problem Relation Age of Onset Hypertension Mother Restless legs syndrome Mother Diabetes Maternal Grandmother Heart disease Paternal Grandfather OBJECTIVE Vitals: 02/18/22 1524 BP: 119/78 Pulse: 99 Resp: 18 Temp: 98.4 F (36.9 C) TempSrc: Temporal SpO2: 96% Weight: 98.1 kg (216 lb 4.8 oz) Height: 5' 8 Wt Readings from Last 3 Encounters: 02/18/22 98.1 kg (216 lb 4.8 oz) 08/27/20 90.7 kg (200 lb) 06/19/20 89.9 kg (198 lb 3.2 oz) Ht Readings from Last 3 Encounters: 02/18/22 5' 8 08/27/20 5' 8 06/19/20 5' 9.09 Body mass index is 32.89 kg/m . Facility age limit for growth percentiles is 20 years. Facility age limit for growth percentiles is 20 years. Facility age limit for growth percentiles is 20 years. Physical Exam Constitutional: General: He is not in acute distress. Appearance: Normal appearance. He is not ill-appearing. HENT: Head: Normocephalic and atraumatic. Eyes: General: Right eye: No discharge. Left eye: No discharge. Extraocular Movements: Extraocular movements intact. Cardiovascular: Rate and Rhythm: Normal rate and regular rhythm. Pulses: Normal pulses. Heart sounds: Murmur heard. No friction rub. No gallop. Comments: Subtle 2 out of 6 systolic murmur appreciated at right sternal border Pulmonary: Effort: Pulmonary effort is normal. Breath sounds: Normal breath sounds. No wheezing, rhonchi or rales. Abdominal: General: Abdomen is flat. Bowel sounds are normal. Palpations: Abdomen is soft. Tenderness: There is no abdominal tenderness. Musculoskeletal: General: No swelling, tenderness or signs of injury. Normal range of motion. Skin: General: Skin is warm and dry. Coloration: Skin is not jaundiced. Findings: No erythema. Neurological: General: No focal deficit present. Mental Status: He is alert and oriented to person, place, and time. Mental status is at baseline. Psychiatric: Mood and Affect: Mood normal. Behavior: Behavior normal. Thought Content: Thought content normal. Judgment: Judgment normal. Depression Screening 06/19/2020 02/18/2022 Little interest or pleasure in doing things 0 0 Feeling down, depressed, or hopeless 0 0 PHQ-2 Total Score 0 0 Trouble falling or staying asleep, or sleeping too much 1 3 Feeling tired or having little energy 0 2 Poor appetite or overeating 0 0 Feeling bad about yourself - or that you are a failure or have let yourself or your family down 0 0 Trouble concentrating on things, such as reading the newspaper or watching television 0 0 Moving or speaking so slowly that other people could have noticed. Or the opposite - being so fidgety or restless that you have been moving around a lot more than usual 0 0 Thoughts that you would be better off , or of hurting yourself in some way 0 0 PHQ-9 Total Score 1 5 If you checked off any problems, how difficult have these problems made it for you to do your work, take care of things at home, or get along with other people? Somewhat difficult Somewhat difficult documented in this encounter [facility] 02-10-2022 Emergency department Note Visual acuity completed with Snellen chart. 20/20 OD 20/40 OS States left eye blurry and unable to read any lines further. [facility] 02-10-2022 Emergency department Note Visual acuity completed with Snellen chart. 20/20 OD 20/40 OS States left eye blurry and unable to read any lines further. At bedside with MD during [place] exam. Per MD, no abnormal findings on assessment. Introduced myself to patient. Pt A/Ox4, presents with worsening left eye edema, erythema and pain. Otherwise no c/o- was seen in urgent care 2 days ago with no improvement. Chief Complaint Patient presents with Eye Pain Left Lesley Heller is a 26 y.o. male Pt presents for 3 days L eye redness, watering. States mild pain. Constant. States he was seen at 3 days ago, diagnosed with bacterial conjunctivitis, started on ofloxacin ophthalmic drops. Feels it is not getting better. Has appt with PCP 02/18/22 for f/u. Denies any trauma to the eye. Things may have been trigger by cigarette smoke. Denies any chua, ashes, or other FB or chemicals in eye. The history is provided by the patient. PMH: No past medical history on file. PSH: No past surgical history on file. Family Hx: Family History Problem Relation Age of Onset Hypertension Mother Allergies: Allergies Allergen Reactions Penicillins Hives Other reaction(s): AOF Social Hx: Social History Socioeconomic History Marital status: Spouse name: Not on file Number of children: Not on file Years of education: Not on file Highest education level: Not on file Occupational History Not on file Tobacco Use Smoking status: Current Every Day Smoker Packs/day: 0.50 Smokeless tobacco: Never Used Substance and Sexual Activity Alcohol use: Yes Drug use: Never Sexual activity: Not on file Other Topics Concern Not on file Social History Narrative Not on file Social Determinants of Health Financial Resource Strain: Not on file Food Insecurity: Not on file Transportation Needs: Not on file Physical Activity: Not on file Stress: Not on file Social Connections: Not on file Intimate Partner Violence: Not on file Housing Stability: Not on file Medications: Current Outpatient Medications Medication Instructions albuterol 108 (90 Base) MCG/ACT Aero Soln inhaler 2 puffs, Inhalation, EVERY 4 HOURS NEEDED cyclobenzaprine (FLEXERIL) 10 mg, Oral, 3 TIMES DAILY NEEDED erythromycin 5 MG/GM Ointment ophthalmic ointment 1/2 inch to affected eye(s) QID for 5-7 days IBUPROFEN PO Take by mouth. naproxen (NAPROSYN) 500 mg, Oral, 2 TIMES DAILY NEEDED ofloxacin 0.3 % ophthalmic solution 1 drop, Left Eye, EVERY 6 HOURS predniSONE (DELTASONE) 50 mg, Oral, DAILY ROS Review of Systems Constitutional: Negative for activity change, appetite change, chills, diaphoresis, fatigue and fever. HENT: Negative for congestion, dental problem, drooling, ear discharge, ear pain, facial swelling, postnasal drip, rhinorrhea, sinus pressure, sinus pain and sore throat. Eyes: Positive for pain, discharge and redness. Negative for photophobia, itching and visual disturbance. Respiratory: Negative for cough and shortness of breath. Cardiovascular: Negative for chest pain and palpitations. Gastrointestinal: Negative for abdominal pain, nausea and vomiting. Musculoskeletal: Negative for neck pain and neck stiffness. Skin: Negative for color change, pallor, rash and wound. Neurological: Negative for dizziness, tremors, seizures, syncope, facial asymmetry, speech difficulty, weakness, light-headedness, numbness and headaches. Psychiatric/Behavioral: Negative for confusion. Physical Exam ED Triage Vitals Enc Vitals Group BP 02/10/22401 121/65 Pulse (Heart Rate) 02/10/22401 71 Resp Rate 02/10/22401 18 Temp 02/10/22401 97.1 F (36.2 C) Temp source 02/10/22401 Temporal O2 Sat (%) 02/10/22404 100 % Weight 02/10/22403 95.3 kg (210 lb) Height 02/10/22403 1.727 m (5' 8) Head Circumference -- Peak Flow -- Pain Score -- Pain Loc -- Pain Edu? -- Excl. in GC? -- Vitals: 02/10/22 0402 02/10/22 0404 02/10/22 0405 BP: 121/65 Pulse: 71 Resp: 18 Temp: 97.1 degrees F (36.2 degrees C) TempSrc: Temporal SpO2: 100% Weight: 95.3 kg (210 lb) Height: 1.727 m (5' 8) Physical Exam Vitals and nursing note reviewed. Constitutional: General: He is not in acute distress. Appearance: Normal appearance. He is not ill-appearing or diaphoretic. Comments: Sitting up in bed alert. No acute distress. Not appear in pain. Calm, pleasant. Conversing normally. Well-appearing. HENT: Head: Normocephalic and atraumatic. Comments: No facial swelling or rashes appreciated. Right Ear: External ear normal. Left Ear: External ear normal. Nose: Nose normal. No rhinorrhea. Mouth/Throat: Mouth: Mucous membranes are moist. Eyes: General: Right eye: No discharge. Left eye: Discharge (mild clear watering) present. Extraocular Movements: Extraocular movements intact. Conjunctiva/sclera: Conjunctivae normal. Pupils: Pupils are equal, round, and reactive to light. Comments: Pupils equal and reactive bilaterally. Eye movements intact bilaterally. No nystagmus. No pain with eye movements. No periorbital edema or erythema. Minimal lid edema. No styes or other external abnormalities. Greenberg lamp: Sidel's negative. No corneal abrasions appreciated. No signs keratitis appreciated. No FB appreciated Visual acuity completed with Snellen chart. 20/20 OD 20/40 OS States left eye blurry and unable to read any lines further. Cardiovascular: Rate and Rhythm: Normal rate and regular rhythm. Pulmonary: Effort: Pulmonary effort is normal. No respiratory distress. Abdominal: General: There is no distension. Palpations: Abdomen is soft. Musculoskeletal: General: No deformity or signs of injury. Cervical back: No rigidity. Skin: General: Skin is dry. Coloration: Skin is not jaundiced. Findings: No erythema. Neurological: Mental Status: He is alert and oriented to person, place, and time. Comments: GCS 15 Psychiatric: Mood and Affect: Mood normal. Behavior: Behavior normal. Thought Content: Thought content normal. Judgment: Judgment normal. ED Course & MDM Medications fluorescein ophthalmic 1 mg strip (has no administration in time range) tetracaine (PONTOCAINE) 0.5 % ophthalmic solution 1 drop (has no administration in time range) Symptoms & exam consistent with likely conjunctivitis. Advised likely self limiting. Advised to f/u with ophthalmology for more detail evaluation given persistence of symptoms. Pt has f/u with PCP scheduled already. Advised to return to ER if new or worsening symptoms. Patient understands and agrees, is agreeable to plan. All questions answered. Diagnosis: 1. Acute conjunctivitis of left eye, unspecified acute conjunctivitis type This note was dictated using medical voice recognition software. Attempts at proofreading were made, but errors may occasionally still occur. DO Brett Dow DO 02/10/22451 Pt c/o L eye redness and pain. Pt seen at Monday, with conjunctivitis. Given rx for ofloxacin and prednisone. Pt states symptoms arent improving. documented in this encounter [facility] 02-10-2022 Emergency department Note At bedside with MD during [place] exam. Per MD, no abnormal findings on assessment. [facility] 02-10-2022 Emergency department Note Introduced myself to patient. Pt A/Ox4, presents with worsening left eye edema, erythema and pain. Otherwise no c/o- was seen in urgent care 2 days ago with no improvement. [facility] 02-10-2022 Physician Emergency department Note Chief Complaint Patient presents with Eye Pain Left Lesley Heller is a 26 y.o. male Pt presents for 3 days L eye redness, watering. States mild pain. Constant. States he was seen at 3 days ago, diagnosed with bacterial conjunctivitis, started on ofloxacin ophthalmic drops. Feels it is not getting better. Has appt with PCP 02/18/22 for f/u. Denies any trauma to the eye. Things may have been trigger by cigarette smoke. Denies any chua, ashes, or other FB or chemicals in eye. The history is provided by the patient. PMH: No past medical history on file. PSH: No past surgical history on file. Family Hx: Family History Problem Relation Age of Onset Hypertension Mother Allergies: Allergies Allergen Reactions Penicillins Hives Other reaction(s): AOF Social Hx: Social History Socioeconomic History Marital status: Spouse name: Not on file Number of children: Not on file Years of education: Not on file Highest education level: Not on file Occupational History Not on file Tobacco Use Smoking status: Current Every Day Smoker Packs/day: 0.50 Smokeless tobacco: Never Used Substance and Sexual Activity Alcohol use: Yes Drug use: Never Sexual activity: Not on file Other Topics Concern Not on file Social History Narrative Not on file Social Determinants of Health Financial Resource Strain: Not on file Food Insecurity: Not on file Transportation Needs: Not on file Physical Activity: Not on file Stress: Not on file Social Connections: Not on file Intimate Partner Violence: Not on file Housing Stability: Not on file Medications: Current Outpatient Medications Medication Instructions albuterol 108 (90 Base) MCG/ACT Aero Soln inhaler 2 puffs, Inhalation, EVERY 4 HOURS NEEDED cyclobenzaprine (FLEXERIL) 10 mg, Oral, 3 TIMES DAILY NEEDED erythromycin 5 MG/GM Ointment ophthalmic ointment 1/2 inch to affected eye(s) QID for 5-7 days IBUPROFEN PO Take by mouth. naproxen (NAPROSYN) 500 mg, Oral, 2 TIMES DAILY NEEDED ofloxacin 0.3 % ophthalmic solution 1 drop, Left Eye, EVERY 6 HOURS predniSONE (DELTASONE) 50 mg, Oral, DAILY ROS Review of Systems Constitutional: Negative for activity change, appetite change, chills, diaphoresis, fatigue and fever. HENT: Negative for congestion, dental problem, drooling, ear discharge, ear pain, facial swelling, postnasal drip, rhinorrhea, sinus pressure, sinus pain and sore throat. Eyes: Positive for pain, discharge and redness. Negative for photophobia, itching and visual disturbance. Respiratory: Negative for cough and shortness of breath. Cardiovascular: Negative for chest pain and palpitations. Gastrointestinal: Negative for abdominal pain, nausea and vomiting. Musculoskeletal: Negative for neck pain and neck stiffness. Skin: Negative for color change, pallor, rash and wound. Neurological: Negative for dizziness, tremors, seizures, syncope, facial asymmetry, speech difficulty, weakness, light-headedness, numbness and headaches. Psychiatric/Behavioral: Negative for confusion. Physical Exam ED Triage Vitals Enc Vitals Group BP 02/10/22401 121/65 Pulse (Heart Rate) 02/10/22 040 71 Resp Rate 02/10/22401 18 Temp 02/10/22401 97.1 F (36.2 C) Temp source 02/10/22401 Temporal O2 Sat (%) 02/10/22404 100 % Weight 02/10/22403 95.3 kg (210 lb) Height 02/10/22403 1.727 m (5' 8) Head Circumference -- Peak Flow -- Pain Score -- Pain Loc -- Pain Edu? -- Excl. in GC? -- Vitals: 02/10/22 0402 02/10/2240302/10/22404 BP: 121/65 Pulse: 71 Resp: 18 Temp: 97.1 degrees F (36.2 degrees C) TempSrc: Temporal SpO2: 100% Weight: 95.3 kg (210 lb) Height: 1.727 m (5' 8) Physical Exam Vitals and nursing note reviewed. Constitutional: General: He is not in acute distress. Appearance: Normal appearance. He is not ill-appearing or diaphoretic. Comments: Sitting up in bed alert. No acute distress. Not appear in pain. Calm, pleasant. Conversing normally. Well-appearing. HENT: Head: Normocephalic and atraumatic. Comments: No facial swelling or rashes appreciated. Right Ear: External ear normal. Left Ear: External ear normal. Nose: Nose normal. No rhinorrhea. Mouth/Throat: Mouth: Mucous membranes are moist. Eyes: General: Right eye: No discharge. Left eye: Discharge (mild clear watering) present. Extraocular Movements: Extraocular movements intact. Conjunctiva/sclera: Conjunctivae normal. Pupils: Pupils are equal, round, and reactive to light. Comments: Pupils equal and reactive bilaterally. Eye movements intact bilaterally. No nystagmus. No pain with eye movements. No periorbital edema or erythema. Minimal lid edema. No styes or other external abnormalities. Greenberg lamp: Sidel's negative. No corneal abrasions appreciated. No signs keratitis appreciated. No FB appreciated Visual acuity completed with Snellen chart. 20/20 OD 20/40 OS States left eye blurry and unable to read any lines further. Cardiovascular: Rate and Rhythm: Normal rate and regular rhythm. Pulmonary: Effort: Pulmonary effort is normal. No respiratory distress. Abdominal: General: There is no distension. Palpations: Abdomen is soft. Musculoskeletal: General: No deformity or signs of injury. Cervical back: No rigidity. Skin: General: Skin is dry. Coloration: Skin is not jaundiced. Findings: No erythema. Neurological: Mental Status: He is alert and oriented to person, place, and time. Comments: GCS 15 Psychiatric: Mood and Affect: Mood normal. Behavior: Behavior normal. Thought Content: Thought content normal. Judgment: Judgment normal. ED Course & MDM Medications fluorescein ophthalmic 1 mg strip (has no administration in time range) tetracaine (PONTOCAINE) 0.5 % ophthalmic solution 1 drop (has no administration in time range) Symptoms & exam consistent with likely conjunctivitis. Advised likely self limiting. Advised to f/u with ophthalmology for more detail evaluation given persistence of symptoms. Pt has f/u with PCP scheduled already. Advised to return to ER if new or worsening symptoms. Patient understands and agrees, is agreeable to plan. All questions answered. Diagnosis: 1. Acute conjunctivitis of left eye, unspecified acute conjunctivitis type This note was dictated using medical voice recognition software. Attempts at proofreading were made, but errors may occasionally still occur. DO Brett Dow DO 02/10/22451 [facility] 02-10-2022 Emergency department Note Pt c/o L eye redness and pain. Pt seen at Monday, with conjunctivitis. Given rx for ofloxacin and prednisone. Pt states symptoms arent improving. [facility] 02-07-2022 Instructions JIM Frank - 02/07/2022 5:57 PM EDT Do not rub the eye. May use cool compress on the eye but do not push on the eye. Do not use ibuprofen while taking prednisone. You may use Tylenol 650-1000mg every 6-8 hours if needed. Steroids may cause you to not sleep well-causes burst of energy. May cause increase hunger, irritability, anxiety. You may stop steroid if this is not tolerated. The following attachments cannot be sent through Care Everywhere.Conjunctivitis (Eritrean)documented in this encounter [facility] 02-07-2022 History of Presen t illness Narrative [facility] PATIENT NAME: Lesley Heller DATE OF : 1995 DATE OF VISIT: 02/07/2022 PROVIDER: JIM Frank HISTORY OF PRESENT ILLNESS: Lesley Heller is a 26 y.o. male who is presenting today with Eye Swelling (Patient states it started this pain in the left eye yesterday, still painful to day as well as swollen ) 26 year old male with complaints of left eye pain with swelling that started yesterday. Swelling of upper and lower eyelids are worse today. Denies known injury but he did rub the eye yesterday then today pain/swelling worse. Noticing tearing and some goopy drainage today. VITAL SIGNS: Vitals: 02/07/22 1743 BP: (!) 147/92 Pulse: 71 Temp: 98 degrees F (36.7 degrees C) TempSrc: Temporal SpO2: 96% ALLERGIES: Penicillins MEDICATIONS: Outpatient Medications Prior to Visit Medication Sig Dispense Refill albuterol 108 (90 Base) MCG/ACT Aero Soln inhaler Inhale 2 puffs every 4 hours as needed for Wheezing. (Patient not taking: No sig reported) 1 Inhaler 0 cyclobenzaprine 10 MG tablet Take 1 tablet by mouth 3 times daily as needed for Muscle spasms. (Patient not taking: No sig reported) 21 tablet 0 IBUPROFEN PO Take by mouth. (Patient not taking: Reported on 02/07/2022) naproxen 500 MG tablet Take 1 tablet by mouth 2 times daily as needed. (Patient not taking: No sig reported) 30 tablet 0 No facility-administered medications prior to visit. PAST MEDICAL HISTORY: No past medical history on file. PAST SURGICAL HISTORY: No past surgical history on file. FAMILY HISTORY: Family History Problem Relation Age of Onset Hypertension Mother SOCIAL HISTORY: Social History Tobacco Use Smoking status: Current Every Day Smoker Packs/day: 0.50 Smokeless tobacco: Never Used Substance Use Topics Alcohol use: Yes REVIEW OF SYSTEMS: Review of Systems Constitutional: Negative. HENT: Negative for congestion and facial swelling. Eyes: Positive for pain, discharge and redness. Upper and lower left eyelid swelling. Respiratory: Negative. Cardiovascular: Negative. Musculoskeletal: Negative. Skin: Negative. Neurological: Negative. PHYSICAL EXAM: Physical Exam Constitutional: Appearance: Normal appearance. Eyes: Conjunctiva/sclera: Left eye: Left conjunctiva is injected. Exudate present. Comments: Upper and lower left eyelids are moderately edematous. Cardiovascular: Rate and Rhythm: Normal rate and regular rhythm. Musculoskeletal: Cervical back: Normal range of motion. Neurological: Mental Status: He is alert. LAB RESULTS: No results found for this or any previous visit (from the past 2 hour(s)). ASSESSMENT & PLAN: Lesley was seen today for eye swelling. Diagnoses and all orders for this visit: Acute bacterial conjunctivitis of left eye Other orders - ofloxacin 0.3 % ophthalmic solution; Place 1 drop in left eye every 6 hours for 7 days. - predniSONE 50 MG tablet; Take 1 tablet by mouth daily for 5 days. Patient Instructions Do not rub the eye. May use cool compress on the eye but do not push on the eye. Do not use ibuprofen while taking prednisone. You may use Tylenol 650-1000mg every 6-8 hours if needed. Steroids may cause you to not sleep well-causes burst of energy. May cause increase hunger, irritability, anxiety. You may stop steroid if this is not tolerated. documented in this encounter [facility] 11-16-2021 History of Presen t illness Narrative [facility] PATIENT NAME: Lesley Heller DATE OF : 1995 DATE OF VISIT: 11/16/2021 PROVIDER: Elvira Frausto CNP HISTORY OF PRESENT ILLNESS: Lesley Heller is a 25 y.o. male who is presenting today with Toe Injury (Dropped a large tool box on his left foot yesterday, great toe red swollen) Patient reports that he dropped a large metal tool box onto his left great toe and 2nd toe yesterday. He is having a difficult time putting any pressure on the toe and has a total subungual hematoma. Up-to-date on tetanus, last was in 2012. HPI VITAL SIGNS: Vitals: 11/16/21 1015 BP: 127/84 Pulse: 90 Resp: 12 Temp: 98.2 degrees F (36.8 degrees C) TempSrc: Oral ALLERGIES: Penicillins MEDICATIONS: Outpatient Medications Prior to Visit Medication Sig Dispense Refill albuterol 108 (90 Base) MCG/ACT Aero Soln inhaler Inhale 2 puffs every 4 hours as needed for Wheezing. (Patient not taking: Reported on 10/12/2021) 1 Inhaler 0 cyclobenzaprine 10 MG tablet Take 1 tablet by mouth 3 times daily as needed for Muscle spasms. (Patient not taking: Reported on 10/12/2021) 21 tablet 0 IBUPROFEN PO Take by mouth. naproxen 500 MG tablet Take 1 tablet by mouth 2 times daily as needed. (Patient not taking: Reported on 10/12/2021) 30 tablet 0 No facility-administered medications prior to visit. PAST MEDICAL HISTORY: No past medical history on file. PAST SURGICAL HISTORY: No past surgical history on file. FAMILY HISTORY: Family History Problem Relation Age of Onset Hypertension Mother SOCIAL HISTORY: Social History Tobacco Use Smoking status: Current Every Day Smoker Packs/day: 0.50 Smokeless tobacco: Never Used Substance Use Topics Alcohol use: Yes REVIEW OF SYSTEMS: Review of Systems Constitutional: Negative for activity change, appetite change, chills, diaphoresis, fatigue and fever. HENT: Negative for congestion, ear pain, rhinorrhea, sinus pain and sore throat. Eyes: Negative for discharge and redness. Respiratory: Negative for cough, chest tightness, shortness of breath and wheezing. Cardiovascular: Negative for chest pain, palpitations and leg swelling. Gastrointestinal: Negative for abdominal pain, diarrhea and nausea. Endocrine: Negative for polyuria. Genitourinary: Negative for dysuria. Musculoskeletal: Negative for myalgias. Left great toe pain Skin: Negative for rash. Neurological: Negative for dizziness, numbness and headaches. Psychiatric/Behavioral: Negative for confusion. PHYSICAL EXAM: Physical Exam Vitals and nursing note reviewed. Constitutional: Appearance: Normal appearance. HENT: Head: Normocephalic. Eyes: Extraocular Movements: Extraocular movements intact. Pupils: Pupils are equal, round, and reactive to light. Cardiovascular: Rate and Rhythm: Normal rate and regular rhythm. Pulses: Normal pulses. Heart sounds: Normal heart sounds. Pulmonary: Effort: Pulmonary effort is normal. Breath sounds: Normal breath sounds. Musculoskeletal: General: Normal range of motion. Cervical back: Normal range of motion. Comments: Left great toe is tender distal to the IP with mild to moderate edema, ecchymosis, and subungal hematoma covering total of toenail. Remainder of foot and toes are nontender with normal ROM. Skin: General: Skin is warm. Neurological: General: No focal deficit present. Mental Status: He is alert and oriented to person, place, and time. Psychiatric: Mood and Affect: Mood normal. Behavior: Behavior normal. Thought Content: Thought content normal. Judgment: Judgment normal. PROCEDURE: Subungual hematoma on the left great toe was relieved using electrocautery. There was a small amount of bloody drainage. Patient tolerated the procedure well. Pressure dressing was applied after the procedure. LAB RESULTS: No results found for this or any previous visit (from the past 2 hour(s)). ASSESSMENT & PLAN: Lesley was seen today for toe injury. Diagnoses and all orders for this visit: Pain in toe of left foot - XR FOOT LEFT 3 VIEWS; Future Xray of the left foot appears normal. Procedures documented in this encounter [facility] 10-12-2021 History of Presen t illness Narrative [facility] PATIENT NAME: Lesley Heller DATE OF : 1995 DATE OF VISIT: 10/12/2021 PROVIDER: Mp Mora CNP HISTORY OF PRESENT ILLNESS: Lesley Heller is a 25 y.o. male who is presenting today with Ear Pain (right ear pain a few days ago,had a weird feeling in his ear q-tip showed blood) Ear Drainage There is pain in the right ear. This is a new problem. The current episode started today. The problem has been unchanged. There has been no fever. The pain is mild. Associated symptoms include ear discharge (bloody drainage) and hearing loss. Pertinent negatives include no abdominal pain, coughing, diarrhea, headaches, neck pain, rash, rhinorrhea, sore throat or vomiting. VITAL SIGNS: Vitals: 10/12/21 1424 BP: 113/80 Pulse: 107 Resp: 12 Temp: 98.6 degrees F (37 degrees C) TempSrc: Oral ALLERGIES: Penicillins MEDICATIONS: Outpatient Medications Prior to Visit Medication Sig Dispense Refill IBUPROFEN PO Take by mouth. albuterol 108 (90 Base) MCG/ACT Aero Soln inhaler Inhale 2 puffs every 4 hours as needed for Wheezing. (Patient not taking: Reported on 10/12/2021) 1 Inhaler 0 cyclobenzaprine 10 MG tablet Take 1 tablet by mouth 3 times daily as needed for Muscle spasms. (Patient not taking: Reported on 10/12/2021) 21 tablet 0 naproxen 500 MG tablet Take 1 tablet by mouth 2 times daily as needed. (Patient not taking: Reported on 10/12/2021) 30 tablet 0 No facility-administered medications prior to visit. PAST MEDICAL HISTORY: No past medical history on file. PAST SURGICAL HISTORY: No past surgical history on file. FAMILY HISTORY: History reviewed. No pertinent family history. SOCIAL HISTORY: Social History Tobacco Use Smoking status: Current Every Day Smoker Packs/day: 0.50 Smokeless tobacco: Never Used Substance Use Topics Alcohol use: Yes REVIEW OF SYSTEMS: Review of Systems Constitutional: Negative for activity change, chills, fatigue and fever. HENT: Positive for ear discharge (bloody drainage), ear pain (right) and hearing loss. Negative for rhinorrhea, sinus pressure, sinus pain and sore throat. Eyes: Negative for discharge. Respiratory: Negative for cough, shortness of breath, wheezing and stridor. Cardiovascular: Negative for chest pain and palpitations. Gastrointestinal: Negative for abdominal pain, diarrhea and vomiting. Musculoskeletal: Negative for neck pain. Skin: Negative for color change, pallor, rash and wound. Neurological: Negative for dizziness and headaches. All other systems reviewed and are negative. PHYSICAL EXAM: Physical Exam Vitals reviewed. Constitutional: General: He is not in acute distress. Appearance: Normal appearance. He is not ill-appearing, toxic-appearing or diaphoretic. HENT: Head: Normocephalic. Right Ear: Decreased hearing noted. Drainage (bloody - minimal. ) and tenderness present. There is no impacted cerumen. No mastoid tenderness. Tympanic membrane is perforated. Tympanic membrane is not injected, scarred or bulging. Left Ear: Hearing, tympanic membrane, ear canal and external ear normal. There is no impacted cerumen. Nose: No congestion or rhinorrhea. Eyes: Pupils: Pupils are equal, round, and reactive to light. Cardiovascular: Rate and Rhythm: Normal rate and regular rhythm. Pulses: Normal pulses. Heart sounds: Normal heart sounds. Pulmonary: Effort: Pulmonary effort is normal. No respiratory distress. Breath sounds: Normal breath sounds. No stridor. No wheezing, rhonchi or rales. Chest: Chest wall: No tenderness. Abdominal: Palpations: Abdomen is soft. Musculoskeletal: General: Normal range of motion. Cervical back: Normal range of motion. Skin: General: Skin is warm and dry. Neurological: Mental Status: He is alert. Psychiatric: Mood and Affect: Mood normal. LAB RESULTS: No results found for this or any previous visit (from the past 2 hour(s)). ASSESSMENT & PLAN: Lesley was seen today for ear pain. Diagnoses and all orders for this visit: Ruptured ear drum, right Other orders - azithromycin 250 MG tablet; Take by mouth 2 tablets (500 mg) on Day 1, then 1 tablet (250 mg) daily on Days 2-5 Referred to ENT as needed. Pain has mostly resolved once felt pop feeling and blood began draining from ear. Hurt really bad a few nights ago like someone stabbing ear drum. The patient has a PCP, and has been advised to follow-up with them if not improving or worsening. I have reviewed the treatment plan, medications and their common side effects and the warning signs listed on the aftercare sheet with the patient. Patient has agreed to go to ED of choice if the warning signs listed on the aftercare sheet were to develop. The patient acknowledged understanding my instructions. I have answered all questions patient had today. We discussed symptoms that would warrant a visit to the ER and patient has verbalized understanding and agreed. documented in this encounter [facility] 10-12-2021 Instructions Mp Mora CNP - 10/12/2021 2:05 PM EST Images from the original note were not included. Perforated Eardrum: Care Instructions Your Care Instructions OTOLARYNGOLOGY (EAR, NOSE & THROAT) [place], [address] [place], [place] [phone] [place] [address], [address] [place], [place] [phone] Fareed Che MD We discussed symptoms that would warrant a visit to the ER and you have verbalized understanding and agreed. If your condition worsens we recommend that you receive another evaluation at the emergency room immediately or contact your primary medical clinic to discuss your concerns. You must understand that you've received an Urgent Care treatment only and that you may be released before all of your medical problems are known or treated. You, the patient, will arrange for follow up care as instructed. We have discussed the side effects of all of the medications you have been prescribed today and you have verbalized understanding. A tear or hole in the membrane of the middle ear is called a perforated or ruptured eardrum. This can happen if an infection builds up inside the ear or if the eardrum gets injured. You may find it hard to hear out of that ear or may hear a buzzing sound. You may have an earache or have fluids that drain from the ear. Your eardrum should heal on its own in a few weeks, and you should hear normally then. If you have an infection, your doctor may prescribe antibiotics. You may need pain relief medicine for your earache. Your doctor will check to see if your eardrum has healed. If not, you may need surgery to repair the eardrum. Follow-up care is a sotelo part of your treatment and safety. Be sure to make and go to all appointments, and call your doctor if you are having problems. It's also a good idea to know your test results and keep a list of the medicines you take. How can you care for yourself at home? If your doctor prescribed antibiotics, take them as directed. Do not stop taking them just because you feel better. You need to take the full course of antibiotics. Take an apxq-odi-zksnddo pain medicine, such as acetaminophen (Tylenol), ibuprofen (Advil, Motrin), or naproxen (Aleve), as needed. Read and follow all instructions on the label. Do not take two or more pain medicines at the same time unless the doctor told you to. Many pain medicines have acetaminophen, which is Tylenol. Too much acetaminophen (Tylenol) can be harmful. To ease pain, put a warm washcloth or a heating pad set on low on your ear. You may have some drainage from the ear. Be careful when taking rjlu-xpu-zcpzojz cold or flu medicines and Tylenol at the same time. Many of these medicines have acetaminophen, which is Tylenol. Read the labels to make sure that you are not taking more than the recommended dose. Too much Tylenol can be harmful. Keep your ears dry. ? Take baths until your doctor says you can take showers again. ? When you wash your hair, use cotton lightly coated with petroleum jelly as an earplug. Do not use plastic earplugs. ? Do not swim until your doctor says you can. ? If you get water in your ears, turn your head to each side and pull the earlobe in different directions. This will help the water run out. If your ears are still wet, use a communications department chairperson set on the lowest heat. Hold the dryer several inches from your ear. Do not put anything into your ear canal. For example, do not use a cotton swab to clean the inside of your ear. It can damage your ear. If you think you have something inside your ear, ask your doctor to check it. When should you call for help? Call your doctor now or seek immediate medical care if: You have signs of infection, such as: ? Increased pain, swelling, warmth, or redness. ? Pus draining from the ear. ? A fever. Watch closely for changes in your health, and be sure to contact your doctor if: You have changes in hearing. You do not get better as expected. documented in this encounter [facility] 06-08-2021 History of Presen t illness Narrative I have reviewed the history, physical, diagnosis and care plan with the resident physician, Nallely Brito DO. I confirm the assessment and treatment plan: Diagnoses and all orders for this visit: Sinus congestion - COVID-19, Molecular; Future - Pending external COVID-19 lab result - doxycycline hyclate (VIBRA-TABS) 100 MG tablet; Take 1 (one) tablet (100 mg total) by mouth 2 (two) times a day for 7 days . I have reviewed the history, physical, diagnosis and care plan with the resident physician, Nallely Brito DO. I confirm the assessment and treatment plan: Diagnoses and all orders for this visit: Sinus congestion - COVID-19, Molecular; Future - Pending external COVID-19 lab result - doxycycline hyclate (VIBRA-TABS) 100 MG tablet; Take 1 (one) tablet (100 mg total) by mouth 2 (two) times a day for 7 days . Video Visit [facility] [address] [place] [address] [place] [phone] Via Real-time Synchronous Audiovisual [facility] 06/07/2021 Nallely Brito DO Provider Location: Office Patient Location Animal Rehabilitator: None Patient Location: Patient's Home Patient: Lesley Heller Date of : 1995 (25 y.o. male) PCP: Ludwig Gannon DO Video Visit Consent Statement: I discussed risks, benefits and alternatives of a real-time synchronous audiovisual consultation with the patient (and any accompanying persons) including the risks that the patient s personal health details and medical records will be discussed over real-time, synchronous, interactive video/audio/telecommunication technology, the visit will not be recorded without the express consent of both the provider and the patient, and that there are some limitations compared to [id number] evaluations. We elected to proceed. Assessment/Plan: Problem List Items Addressed This Visit Respiratory Sinus congestion - Primary Symptoms persisting > 10 days. No distinct worsening or sinus pain, but duration of symptoms increase likelihood of bacterial cause. Will obtain COVID test If negative, will prescribe doxycycline (pt with penicillin allergy). Pt counseled regarding adverse effects of doxycycline. Relevant Orders COVID-19, Molecular Pending external COVID-19 lab result For any new medications prescribed today, patient was educated about indications for the medication, how to take the medication and potential side effects of the medications. Subjective: Lesley Heller is a 25 y.o. male with past medical history listed below who presents to the office via telehealth for a sick visit. Symptoms started . Started with congestion, sore throat, some coughing, post nasal drainage. Snoring loudly and coughing at night. Occasional green and yellow sputum, sometimes blood in snot. Last two days started noticing L ear feels like he is going deaf, no pain. No fever, no chest pain, minimal shortness of breath. No change to taste or smell. Sinus medication OTC, made a little bit of change. Last COVID test since onset of symptoms. Has gotten sinus infections in the past, has never needed antibiotics. The following portions of the patient's history were reviewed and updated as appropriate: allergies, current medications, past family history, past medical history, past social history, past surgical history and problem list. Review of Systems Constitutional: Negative for activity change, fatigue, fever and unexpected weight change. HENT: Positive for congestion, hearing loss, postnasal drip, rhinorrhea, sinus pressure and sore throat. Respiratory: Positive for cough. Negative for shortness of breath. Cardiovascular: Negative for chest pain. Gastrointestinal: Negative for abdominal pain, blood in stool, constipation, diarrhea, nausea and vomiting. Endocrine: Negative for polydipsia and polyuria. Musculoskeletal: Negative for arthralgias and back pain. Neurological: Negative for dizziness, weakness and numbness. Psychiatric/Behavioral: Negative for dysphoric mood and sleep disturbance. The patient is not nervous/anxious. Objective: There were no vitals filed for this visit. Physical Exam Constitutional: General: He is not in acute distress. Appearance: Normal appearance. He is not ill-appearing. Eyes: Extraocular Movements: Extraocular movements intact. Pulmonary: Effort: Pulmonary effort is normal. No respiratory distress. Musculoskeletal: Cervical back: Normal range of motion. Neurological: General: No focal deficit present. Mental Status: He is alert and oriented to person, place, and time. Psychiatric: Mood and Affect: Mood normal. Behavior: Behavior normal. Thought Content: Thought content normal. Judgment: Judgment normal. Medical History: Past Medical History: Diagnosis Date ADHD 13 yo stopped taking it Back pain Dyslexia Heart murmur Knee pain Toeing-in Tremors of nervous system Past Surgical History: Procedure Laterality Date ADENOIDECTOMY TONSILLECTOMY Current Outpatient Medications Medication Sig Dispense Refill albuterol 90 mcg/actuation inhaler Inhale 2 puffs every 4 (four) hours as needed . No current facility-administered medications for this visit. Social History Socioeconomic History Marital status: Single Spouse name: Not on file Number of children: Not on file Years of education: Not on file Highest education level: Not on file Occupational History Not on file Tobacco Use Smoking status: Current Every Day Smoker Packs/day: 0.50 Years: 11.00 Pack years: 5.50 Types: Cigarettes Smokeless tobacco: Former User Types: Chew Vaping Use Vaping Use: Never used Substance and Sexual Activity Alcohol use: Yes Alcohol/week: 1.0 - 2.0 standard drink Types: 1 - 2 Cans of beer per week Comment: social drinker, every 3 months Drug use: No Sexual activity: Yes Partners: Female Other Topics Concern Not on file Social History Narrative Not on file Social Determinants of Health Financial Resource Strain: Difficulty of Paying Living Expenses: Not on file Food Insecurity: Worried About Running Out of Food in the Last Year: Not on file Ran Out of Food in the Last Year: Not on file Transportation Needs: Lack of Transportation (Medical): Not on file Lack of Transportation (Non-Medical): Not on file Physical Activity: Days of Exercise per Week: Not on file Minutes of Exercise per Session: Not on file Stress: Feeling of Stress : Not on file Social Connections: Frequency of Communication with Friends and Family: Not on file Frequency of Social Gatherings with Friends and Family: Not on file Attends Catholic Services: Not on file Active Member of Clubs or Organizations: Not on file Attends Club or Organization Meetings: Not on file Marital Status: Not on file Housing Stability: Unable to Pay for Housing in the Last Year: Not on file Number of Places Lived in the Last Year: Not on file Unstable Housing in the Last Year: Not on file Family History Problem Relation Age of Onset Hypertension Mother Restless legs syndrome Mother Diabetes Maternal Grandmother Heart disease Paternal Grandfather Nallely Brito DO PGY2 Family Medicine [facility] documented in this encounter [facility] 06-08-2021 Miscellaneous Notes Addended by: NALLELY BRITO on: 06/08/2021 08:17 AM Modules accepted: Orders Associated Problem(s): Sinus congestion Symptoms persisting > 10 days. No distinct worsening or sinus pain, but duration of symptoms increase likelihood of bacterial cause. Will obtain COVID test If negative, will prescribe doxycycline (pt with penicillin allergy). Pt counseled regarding adverse effects of doxycycline. documented in this encounter [facility] 06-08-2021 Miscellaneous Notes Addended by: NALLELY BRITO on: 06/08/2021 08:17 AM Modules accepted: Orders Associated Problem(s): Sinus congestion Symptoms persisting > 10 days. No distinct worsening or sinus pain, but duration of symptoms increase likelihood of bacterial cause. Will obtain COVID test If negative, will prescribe doxycycline (pt with penicillin allergy). Pt counseled regarding adverse effects of doxycycline. documented in this encounter [facility] 06-07-2021 Miscellaneous Notes Associated Problem(s): Sinus congestion Symptoms persisting > 10 days. No distinct worsening or sinus pain, but duration of symptoms increase likelihood of bacterial cause. Will obtain COVID test If negative, will prescribe doxycycline (pt with penicillin allergy). Pt counseled regarding adverse effects of doxycycline. documented in this encounter [facility] 06-07-2021 History of Presen t illness Narrative Video Visit [facility] [address] [facility] [id number] Via Real-time Synchronous Audiovisual [facility] 06/07/2021 Nallely Brito DO Provider Location: Office Patient Location Animal Rehabilitator: None Patient Location: Patient's Home Patient: Lesley Heller Date of : 1995 (25 y.o. male) PCP: Ludwig Gannon DO Video Visit Consent Statement: I discussed risks, benefits and alternatives of a real-time synchronous audiovisual consultation with the patient (and any accompanying persons) including the risks that the patient s personal health details and medical records will be discussed over real-time, synchronous, interactive video/audio/telecommunication technology, the visit will not be recorded without the express consent of both the provider and the patient, and that there are some limitations compared to [id number] evaluations. We elected to proceed. Assessment/Plan: Problem List Items Addressed This Visit Respiratory Sinus congestion - Primary Symptoms persisting > 10 days. No distinct worsening or sinus pain, but duration of symptoms increase likelihood of bacterial cause. Will obtain COVID test If negative, will prescribe doxycycline (pt with penicillin allergy). Pt counseled regarding adverse effects of doxycycline. Relevant Orders COVID-19, Molecular Pending external COVID-19 lab result For any new medications prescribed today, patient was educated about indications for the medication, how to take the medication and potential side effects of the medications. Subjective: Lesley Heller is a 25 y.o. male with past medical history listed below who presents to the office via telehealth for a sick visit. Symptoms started . Started with congestion, sore throat, some coughing, post nasal drainage. Snoring loudly and coughing at night. Occasional green and yellow sputum, sometimes blood in snot. Last two days started noticing L ear feels like he is going deaf, no pain. No fever, no chest pain, minimal shortness of breath. No change to taste or smell. Sinus medication OTC, made a little bit of change. Last COVID test since onset of symptoms. Has gotten sinus infections in the past, has never needed antibiotics. The following portions of the patient's history were reviewed and updated as appropriate: allergies, current medications, past family history, past medical history, past social history, past surgical history and problem list. Review of Systems Constitutional: Negative for activity change, fatigue, fever and unexpected weight change. HENT: Positive for congestion, hearing loss, postnasal drip, rhinorrhea, sinus pressure and sore throat. Respiratory: Positive for cough. Negative for shortness of breath. Cardiovascular: Negative for chest pain. Gastrointestinal: Negative for abdominal pain, blood in stool, constipation, diarrhea, nausea and vomiting. Endocrine: Negative for polydipsia and polyuria. Musculoskeletal: Negative for arthralgias and back pain. Neurological: Negative for dizziness, weakness and numbness. Psychiatric/Behavioral: Negative for dysphoric mood and sleep disturbance. The patient is not nervous/anxious. Objective: There were no vitals filed for this visit. Physical Exam Constitutional: General: He is not in acute distress. Appearance: Normal appearance. He is not ill-appearing. Eyes: Extraocular Movements: Extraocular movements intact. Pulmonary: Effort: Pulmonary effort is normal. No respiratory distress. Musculoskeletal: Cervical back: Normal range of motion. Neurological: General: No focal deficit present. Mental Status: He is alert and oriented to person, place, and time. Psychiatric: Mood and Affect: Mood normal. Behavior: Behavior normal. Thought Content: Thought content normal. Judgment: Judgment normal. Medical History: Past Medical History: Diagnosis Date ADHD 13 yo stopped taking it Back pain Dyslexia Heart murmur Knee pain Toeing-in Tremors of nervous system Past Surgical History: Procedure Laterality Date ADENOIDECTOMY TONSILLECTOMY Current Outpatient Medications Medication Sig Dispense Refill albuterol 90 mcg/actuation inhaler Inhale 2 puffs every 4 (four) hours as needed . No current facility-administered medications for this visit. Social History Socioeconomic History Marital status: Single Spouse name: Not on file Number of children: Not on file Years of education: Not on file Highest education level: Not on file Occupational History Not on file Tobacco Use Smoking status: Current Every Day Smoker Packs/day: 0.50 Years: 11.00 Pack years: 5.50 Types: Cigarettes Smokeless tobacco: Former User Types: Chew Vaping Use Vaping Use: Never used Substance and Sexual Activity Alcohol use: Yes Alcohol/week: 1.0 - 2.0 standard drink Types: 1 - 2 Cans of beer per week Comment: social drinker, every 3 months Drug use: No Sexual activity: Yes Partners: Female Other Topics Concern Not on file Social History Narrative Not on file Social Determinants of Health Financial Resource Strain: Difficulty of Paying Living Expenses: Not on file Food Insecurity: Worried About Running Out of Food in the Last Year: Not on file Ran Out of Food in the Last Year: Not on file Transportation Needs: Lack of Transportation (Medical): Not on file Lack of Transportation (Non-Medical): Not on file Physical Activity: Days of Exercise per Week: Not on file Minutes of Exercise per Session: Not on file Stress: Feeling of Stress : Not on file Social Connections: Frequency of Communication with Friends and Family: Not on file Frequency of Social Gatherings with Friends and Family: Not on file Attends Catholic Services: Not on file Active Member of Clubs or Organizations: Not on file Attends Club or Organization Meetings: Not on file Marital Status: Not on file Housing Stability: Unable to Pay for Housing in the Last Year: Not on file Number of Places Lived in the Last Year: Not on file Unstable Housing in the Last Year: Not on file Family History Problem Relation Age of Onset Hypertension Mother Restless legs syndrome Mother Diabetes Maternal Grandmother Heart disease Paternal Grandfather Nallely Brito DO PGY2 Family Medicine [facility] documented in this encounter [facility] 06-07-2021 History of Presen t illness Narrative Video Visit [facility] [address] [facility] [phone] Via Real-time Synchronous Audiovisual [facility] 06/07/2021 Nallely Brito DO Provider Location: Office Patient Location Animal Rehabilitator: None Patient Location: Patient's Home Patient: Lesley Heller Date of : 1995 (25 y.o. male) PCP: Ludwig Gannon DO Video Visit Consent Statement: I discussed risks, benefits and alternatives of a real-time synchronous audiovisual consultation with the patient (and any accompanying persons) including the risks that the patient s personal health details and medical records will be discussed over real-time, synchronous, interactive video/audio/telecommunication technology, the visit will not be recorded without the express consent of both the provider and the patient, and that there are some limitations compared to [id number] evaluations. We elected to proceed. Assessment/Plan: Problem List Items Addressed This Visit Respiratory Sinus congestion - Primary Symptoms persisting > 10 days. No distinct worsening or sinus pain, but duration of symptoms increase likelihood of bacterial cause. Will obtain COVID test If negative, will prescribe doxycycline (pt with penicillin allergy). Pt counseled regarding adverse effects of doxycycline. Relevant Orders COVID-19, Molecular Pending external COVID-19 lab result For any new medications prescribed today, patient was educated about indications for the medication, how to take the medication and potential side effects of the medications. Subjective: Lesley Heller is a 25 y.o. male with past medical history listed below who presents to the office via telehealth for a sick visit. Symptoms started . Started with congestion, sore throat, some coughing, post nasal drainage. Snoring loudly and coughing at night. Occasional green and yellow sputum, sometimes blood in snot. Last two days started noticing L ear feels like he is going deaf, no pain. No fever, no chest pain, minimal shortness of breath. No change to taste or smell. Sinus medication OTC, made a little bit of change. Last COVID test since onset of symptoms. Has gotten sinus infections in the past, has never needed antibiotics. The following portions of the patient's history were reviewed and updated as appropriate: allergies, current medications, past family history, past medical history, past social history, past surgical history and problem list. Review of Systems Constitutional: Negative for activity change, fatigue, fever and unexpected weight change. HENT: Positive for congestion, hearing loss, postnasal drip, rhinorrhea, sinus pressure and sore throat. Respiratory: Positive for cough. Negative for shortness of breath. Cardiovascular: Negative for chest pain. Gastrointestinal: Negative for abdominal pain, blood in stool, constipation, diarrhea, nausea and vomiting. Endocrine: Negative for polydipsia and polyuria. Musculoskeletal: Negative for arthralgias and back pain. Neurological: Negative for dizziness, weakness and numbness. Psychiatric/Behavioral: Negative for dysphoric mood and sleep disturbance. The patient is not nervous/anxious. Objective: There were no vitals filed for this visit. Physical Exam Constitutional: General: He is not in acute distress. Appearance: Normal appearance. He is not ill-appearing. Eyes: Extraocular Movements: Extraocular movements intact. Pulmonary: Effort: Pulmonary effort is normal. No respiratory distress. Musculoskeletal: Cervical back: Normal range of motion. Neurological: General: No focal deficit present. Mental Status: He is alert and oriented to person, place, and time. Psychiatric: Mood and Affect: Mood normal. Behavior: Behavior normal. Thought Content: Thought content normal. Judgment: Judgment normal. Medical History: Past Medical History: Diagnosis Date ADHD 13 yo stopped taking it Back pain Dyslexia Heart murmur Knee pain Toeing-in Tremors of nervous system Past Surgical History: Procedure Laterality Date ADENOIDECTOMY TONSILLECTOMY Current Outpatient Medications Medication Sig Dispense Refill albuterol 90 mcg/actuation inhaler Inhale 2 puffs every 4 (four) hours as needed . No current facility-administered medications for this visit. Social History Socioeconomic History Marital status: Single Spouse name: Not on file Number of children: Not on file Years of education: Not on file Highest education level: Not on file Occupational History Not on file Tobacco Use Smoking status: Current Every Day Smoker Packs/day: 0.50 Years: 11.00 Pack years: 5.50 Types: Cigarettes Smokeless tobacco: Former User Types: Chew Vaping Use Vaping Use: Never used Substance and Sexual Activity Alcohol use: Yes Alcohol/week: 1.0 - 2.0 standard drink Types: 1 - 2 Cans of beer per week Comment: social drinker, every 3 months Drug use: No Sexual activity: Yes Partners: Female Other Topics Concern Not on file Social History Narrative Not on file Social Determinants of Health Financial Resource Strain: Difficulty of Paying Living Expenses: Not on file Food Insecurity: Worried About Running Out of Food in the Last Year: Not on file Ran Out of Food in the Last Year: Not on file Transportation Needs: Lack of Transportation (Medical): Not on file Lack of Transportation (Non-Medical): Not on file Physical Activity: Days of Exercise per Week: Not on file Minutes of Exercise per Session: Not on file Stress: Feeling of Stress : Not on file Social Connections: Frequency of Communication with Friends and Family: Not on file Frequency of Social Gatherings with Friends and Family: Not on file Attends Catholic Services: Not on file Active Member of Clubs or Organizations: Not on file Attends Club or Organization Meetings: Not on file Marital Status: Not on file Housing Stability: Unable to Pay for Housing in the Last Year: Not on file Number of Places Lived in the Last Year: Not on file Unstable Housing in the Last Year: Not on file Family History Problem Relation Age of Onset Hypertension Mother Restless legs syndrome Mother Diabetes Maternal Grandmother Heart disease Paternal Grandfather Nallely Brito DO PGY2 Family Medicine [facility] documented in this encounter [facility] 02-13-2021 Emergency department Note Chief Complaint Patient presents with Foot Pain Leslye Heller is a 25 y.o. male who presented with left foot pain. Patient reports that his left greater toe has been hurting him over the last 2 weeks. He says it is slowly getting worse. 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 He denies any fevers. Denies any numbness or tingling. He says that is just his greater toe that hurts him. No past medical history on file. No past surgical history on file. History reviewed. No pertinent family history. Allergies Allergen Reactions Penicillins Social History Socioeconomic History Marital status: Spouse name: Not on file Number of children: Not on file Years of education: Not on file Highest education level: Not on file Occupational History Not on file Tobacco Use Smoking status: Current Every Day Smoker Smokeless tobacco: Never Used Substance and Sexual Activity Alcohol use: Yes Drug use: Never Sexual activity: Not on file Other Topics Concern Not on file Social History Narrative Not on file Social Determinants of Health Financial Resource Strain: Difficulty of Paying Living Expenses: Food Insecurity: Worried About Running Out of Food in the Last Year: Ran Out of Food in the Last Year: Transportation Needs: Lack of Transportation (Medical): Lack of Transportation (Non-Medical): Physical Activity: Days of Exercise per Week: Minutes of Exercise per Session: Stress: Feeling of Stress : Social Connections: Frequency of Communication with Friends and Family: Frequency of Social Gatherings with Friends and Family: Attends Catholic Services: Active Member of Clubs or Organizations: Attends Club or Organization Meetings: Marital Status: Intimate Partner Violence: Fear of Current or Ex-Partner: Emotionally Abused: Physically Abused: Sexually Abused: Review of Systems Constitutional: Negative for appetite change and fever. HENT: Negative for congestion and sore throat. Respiratory: Negative for cough and shortness of breath. Gastrointestinal: Negative for abdominal pain, nausea and vomiting. Skin: Negative for rash and wound. Physical Exam ED Triage Vitals [02/13/212237] Enc Vitals Group BP Pulse Resp Temp Temp src SpO2 Weight 95.3 kg (210 lb) Height 1.727 m (5' 8) Head Circumference Peak Flow Pain Score Pain Loc Pain Edu? Excl. in GC? Vitals: 02/13/218 02/13/21 2348 BP: 113/61 Pulse: 63 Resp: 18 Temp: 98.2 degrees F (36.8 degrees C) TempSrc: Temporal SpO2: 98% Weight: 95.3 kg (210 lb) Height: 1.727 m (5' 8) Physical Exam Vitals reviewed. Exam conducted with a glass enamel mixer present. Constitutional: General: He is not in acute distress. Appearance: Normal appearance. He is not ill-appearing. HENT: Head: Normocephalic and atraumatic. Cardiovascular: Rate and Rhythm: Normal rate and regular rhythm. Pulmonary: Effort: Pulmonary effort is normal. No respiratory distress. Abdominal: General: There is no distension. Palpations: Abdomen is soft. Tenderness: There is no abdominal tenderness. There is no guarding or rebound. Musculoskeletal: General: Tenderness (The patient has mild tenderness over the interphalangeal joint of the left greater toe) present. No deformity or signs of injury. Cervical back: Normal range of motion. Skin: General: Skin is warm. Neurological: Mental Status: He is alert and oriented to person, place, and time. Psychiatric: Thought Content: Thought content normal. No results found for this visit on 02/13/21. XR FOOT LEFT 3 VIEWS X-ray of left foot reviewed preliminarily read as no acute pathology EKG Interpretation (If blank none were preformed) ED Course Procedures MDM Number of Diagnoses or Management Options Pain of left great toe Diagnosis management comments: 25-year-old male presents with left greater toe pain. Patient very well-appearing here. Patient with no erythema or edema on physical exam I see no signs of any infection. Patient does have left greater toe pain mainly on the dorsal surface concern for possible ligamentous injury. Patient with no finding on x-ray. Will treat as ligamentous injury with a hard-soled shoe and recommend follow-up with Podiatry. Differential includes but is not limited to: cellulitis, gout, arthritis, occult fracture, ligamentous injury Disposition: Discharge home follow-up with Podiatry 1. Pain of left great toe Francis Coleman MD 02/14/21 0339 Pt states does not recall any injury but cannot rule it out. Pt to ED c/o atraumatic L foot pain x 2 weeks. documented in this encounter [facility] 06-08-2020 Hospital Discharg Alicia Lee MD - 06/08/2020 Labs, ekg and xray do not show dangerous cause of pain It is safe for you to be discharged Return immediately for new or worsening symptoms or for any additional concerns The following attachments cannot be sent through Care Everywhere.Chest Pain (Eritrean)Smoking Cessation: Health Benefits: General Info (Eritrean)documented in this encounter [facility] 06-08-2020 Emergency department Note EMERGENCY DEPARTMENT ENCOUNTER CHIEF COMPLAINT Epigastric Pain (hx heart murmur) HPI Lesley Heller is a 24 y.o. male who presents To the emergency department right-sided chest pain. Patient states that he woke up with symptoms. She has fevers chills nausea vomiting lightheadedness dizziness or abdominal pain. Patient reports history of similar symptoms in the past. He says that there is a pleuritic component to it. He denies any recent surgeries travel or periods of immobilization. No leg pain or leg swelling. He does smoke 1/2 to 1 pack cigarettes per day. No recent illnesses. Positive cough no shortness of breath. Unable to identify any exacerbating or alleviating factors. He says that it feels like a poker On the right side of his chest PAST MEDICAL HISTORY No past medical history on file. SURGICAL HISTORY No past surgical history on file. CURRENT MEDICATIONS No current outpatient medications on file. ALLERGIES Allergies Allergen Reactions Penicillins FAMILY HISTORY No family history on file. SOCIAL HISTORY Social History Socioeconomic History Marital status: Single Spouse name: Not on file Number of children: Not on file Years of education: Not on file Highest education level: Not on file Occupational History Not on file Social Needs Financial resource strain: Not on file Food insecurity Worry: Not on file Inability: Not on file Transportation needs Medical: Not on file Non-medical: Not on file Tobacco Use Smoking status: Not on file Substance and Sexual Activity Alcohol use: Not on file Drug use: Not on file Sexual activity: Not on file Lifestyle Physical activity Days per week: Not on file Minutes per session: Not on file Stress: Not on file Relationships Social connections Talks on phone: Not on file Gets together: Not on file Attends orthodox service: Not on file Active member of club or organization: Not on file Attends meetings of clubs or organizations: Not on file Relationship status: Not on file Intimate partner violence Fear of current or ex partner: Not on file Emotionally abused: Not on file Physically abused: Not on file Forced sexual activity: Not on file Other Topics Concern Not on file Social History Narrative Not on file REVIEW OF SYSTEMS General: Denies fevers, chills, malaise, weight loss or weight gain HEENT: denies vision changes, eye pain or drainage sore throat, congestion, ear pain, ear drainage Pulmonary: Cough no shortness of breath Cardiovascular: Right-sided chest pain, deniespalpitations, lightheadedness Gastrointestinal: denies abdominal pain, nausea, vomiting, diarrhea, melena or hematochezia : denies dysuria, hematuria, flank pain Neurological: denies headache, numbness, tingling, weakness Endocrine: denies polyuria, polydipsia, heat or cold intolerance Muskuloskeletal: denies joint pain, arthralgia, myalgia Skin: denies rashes or sores Psychiatric: denies depression or anxiety Remainder of ROS reviewed and are negative PHYSICAL EXAM VITAL SIGNS: BP 127/76 Pulse 77 Temp 98.1 F (36.7 C) (Tympanic) Resp 18 Ht 1.803 m (5' 11) Wt 88.9 kg (196 lb) BMI 27.34 kg/m Constitutional: Well developed, Well nourished, Non-toxic appearance. HENT: Normocephalic, Atraumatic. Bilateral external ears normal. Neck: No tenderness, Supple, Normal range of motion No stridor. Eyes: Pupils equal, sclera anicteric Respiratory: Normal breath sounds, No respiratory distress. No wheezing, No chest tenderness. Cardiovascular: Normal heart rate, Normal rhythm, No murmurs, No rubs, No gallops. GI: Soft, No tenderness, Bowel sounds normal. No pulsatile masses. Back: No CVA tenderness Extremities: No tenderness to palpation or major deformities, Good range of motion in all major joints noted. No edema, Intact distal pulses, No cyanosis, No clubbing. Skin: Warm, Dry, No erythema, No rash. Neurologic: Alert & oriented x 3, No focal deficits noted. Normal sensory function, Normal motor function Psychiatric: Affect normal, Judgment normal, Mood normal. ED Interventions/labs: No results found for this visit on 06/08/20. No orders to display EKG viewed by me interpreted by me sinus rhythm rate of 73 P are interval 84 QTC is 434 RSR prime V1 no acute ischemia ED Course: Vitals reviewed Medical Decision Making Lesley Heller is a 24 y.o. male who presents with Right-sided chest pain. D-dimer negative EKG troponin unremarkable. Patient has had symptoms for greater than 6 hours. Heart score is 1. His abdominal exam is completely benign. Low suspicion for PE, ACS, intra-abdominal pathology. Given supportive care instructions. Patient is a heavy smoker. He is a little bit of wheezing thus I prescribed an albuterol inhaler for him. He was counseled on smoking cessation. Impression: Right-sided chest pain atypical tobacco abuse Dispo: discharged home Alicia Ribera MD This note dictated using [employer] voice recognition software. Attempts at proofreading were made, but errors may occasionally still occur. Alicia Ribera MD 06/08/20 0657 Pt states he woke up with chest pain this morning. Pt states he has a hx of this pain but has never been treated for a cause. documented in this encounter [facility] Evaluation note Diagnosis Pain of left great toe- Primary documented in this encounter [facility] note* Diagnosis Sinus congestion- Primary Other diseases of nasal cavity and sinuses [facility] [place] [facility]* Diagnosis Sinus congestion- Primary Other diseases of nasal cavity and sinuses documented [facility] [place] [facility]* Diagnosis Ruptured ear drum, right- Primary documented in this encounter [facility] note* Diagnosis Pain in toe of left foot- Primary Pain in limb Subungual hematoma of great toe of left foot, initial encounter Crushing injury of left great toe, initial encounter Pain in toe of left foot Pain in limb documented in this encounter [facility] note* Diagnosis Pain in toe of left foot Pain in limb documented in this encounter [facility] note* Diagnosis Other chest pain- Primary Tobacco abuse Tobacco use disorder documented in this encounter [facility] note* Diagnosis Acute bacterial conjunctivitis of left eye- Primary [facility] [place] [facility] Diagnosis Acute conjunctivitis of left eye, unspecified acute conjunctivitis type- Primary documented in this encounter [facility] note* Diagnosis Well adult exam- Primary Routine general medical examination at a health care facility Tobacco abuse Tobacco use disorder Sleep disturbance Unspecified sleep disturbance Screening for diabetes mellitus Screening for HIV (human immunodeficiency virus) Special screening examination for other specified viral diseases Encounter for hepatitis C screening test for low risk patient Screening for lipid disorders [facility] [place] [facility]* Diagnosis Well adult exam- Primary Routine general medical examination at a health care facility Tobacco dependence Tobacco use disorder Sleep disturbance Unspecified sleep disturbance Screening for diabetes mellitus Screening for HIV (human immunodeficiency virus) Special screening examination for other specified viral diseases Encounter for hepatitis C screening test for low risk patient Screening for lipid disorders [facility]* Diagnosis Pain in finger of left hand- Primary Pain in limb documented in this encounter [facility] Phone: Evaluation note* Diagnosis Physical exam, pre-employment- Primary Health examination of defined subpopulation documented in this encounter [facility] note* Diagnosis Finger pain, left Pain in limb documented in this encounter [facility] Work Phone: Evaluation note* Diagnosis Acute upper respiratory infection- Primary Acute upper respiratory infections of unspecified site documented in this encounter [facility] Phone: Evaluation note* Diagnosis Family history of congenital or genetic condition- Primary Family history of congenital anomalies [facility] Diagnosis Closed nondisplaced fracture of distal phalanx of right great toe, initial encounter- Primary documented in this encounter [facility] Discharge instructions* Attachments The following attachments cannot be sent through Care Everywhere. * Conjunctivitis (Eritrean) [facility] Attachments The following attachments cannot be sent through Care Everywhere. * Subungual Hematoma (Eritrean) * Contusion (Eritrean) [facility] Attachments The following attachments cannot be sent through Care Everywhere. * Finger Sprain (Eritrean) [facility] Reason for referral (narrative)* Consultation (Routine) - New Request Specialty Diagnoses / Procedures Referred By Rogerio staton Referred To Contact Orthopaedics Diagnoses Pain in finger of left hand Rebecca Barney MD [address] [place] [address] Referral ID Status Reason Start Date Expiration Date V isits Requested Visits Authorized [id number] New Request 12/07/2022 01/01/2024 1 1 [facility] Phone: Assessments Diagnosis Acute bilateral low back lukas n without sciatica - Primary Diagnosis Right acute serous otitis me kdaeem, recurrence not specified - Primary Diagnosis Acute serous otitis media, r ecurrence not specified, unspecified laterality - Primary Diagnosis Acute URI- Primary Acute upper respiratory infections of unspecified site Hemoptysis Diagnosis Acute non-recurrent maxillary sinusitis- Primary Diagnosis Acute non-recurrent maxillary sinusitis- Primary Diagnosis Urinary frequency- Primary Diagnosis Acute prostatitis- Primary Diagnosis Left wrist pain - Primary Pain in joint, forearm Diagnosis Cellulitis of foot, right- Primary Diagnosis Rhinorrhea- Primary Other diseases of nasal cavity and sinuses Diagnosis Rhinorrhea- Primary Other diseases of nasal cavity and sinuses Diagnosis Laceration of left ring finger without foreign body without damage to nail, initial encounter Contusion of left ring finger without damage to nail, initial encounter Diagnosis Well adult exam- Primary Routine general medical examination at a health care facility Encounter for smoking cessation counseling Chronic bilateral low back pain without sciatica Tobacco Abuse Tobacco use disorder Diagnosis Encounter for vasectomy Sterilization Diagnosis Strain of lumbar region, initial encounter- Primary Discharge Instructions * Attachments The following attachments cannot be sent through Care Everywhere. * Back: Strain (Eritrean) documented in this encounter* Attachments The following attachments cannot be sent through Care Everywhere. * Lacerations: Open (Eritrean) * Contusion (Eritrean) documented in this encounter* Attachments The following attachments cannot be sent through Care Everywhere. * Cellulitis (Eritrean) documented in this encounter* Donna Cohen MD - 03/27/2017 Wrist Sprain: Care Instructions Your Care Instructions Your wrist hurts because you have stretched or torn ligaments, which connect the bones in your wrist. Wrist sprains usually take from 2 to 10 weeks to heal, but some take longer. Usually, the more painyou have, the more severe your wrist sprain is and the longer it will take to heal. You can heal faster and regain strength in your wrist with good home treatment. Follow-up care is a sotelo part of your treatment and safety. Be sure to make and go to all appointments, and call your doctor if you are having problems. It's also a good idea to know your test resultsand keep a list of the medicines you take. How can you care for yourself at home? Prop up your arm on a pillow when you ice it or anytime you sit or lie down for the next 3 days. Try to keep your wrist above the level of your heart. This will help reduce swelling. Put ice or cold packs on your wrist for 10 to 20 minutes at a time. Try to do this every 1 to 2 hours for the next 3 days (when you are awake) or until the swelling goes down. Put a thin cloth between the ice pack and your skin. After 2 or 3 days, if your swelling is gone, apply a heating pad set on low or a warm cloth to yourwrist. This helps keep your wrist flexible. Some doctors suggest that you go back and forth betweenhot and cold. If you have an elastic bandage, keep it on for the next 24 to 36 hours. The bandage should be snug but not so tight that it causes numbness or tingling. To rewrap the wrist, wrap the bandage around the hand a few times, beginning at the fingers. Then wrap it around the hand between the thumb and index finger, ending by circling the wrist several times. If your doctor gave you a splint or brace, wear it as directed to protect your wrist until it has healed. Take pain medicines exactly as directed. If the doctor gave you a prescription medicine for pain, take it as prescribed. If you are not taking a prescription pain medicine, ask your doctor if you can take an [id number] medicine. Try not to use your injured wrist and hand. When should you call for help? Call your doctor now or seek immediate medical care if: Your hand or fingers are cool or pale or change color. Watch closely for changes in your health, and be sure to contact your doctor if: Your pain gets worse. Your wrist has not improved after 1 week. Where can you learn more? Log into your personal health record on https://[employer] and enter G541 in the Education box to learn more about Wrist Sprain: Care Instructions. Current as of: January 04, 2016 Content Version: 11.2 8817-2113 [employer]. Care instructions adapted under license by your healthcare professional. If you have questions about a medical condition or this instruction, always ask your healthcare professional. [employer] disclaims any warranty or liability for your use of this information. in this encounter* Attachments The following attachments cannot be sent through Care Everywhere. * Hemoptysis (Eritrean) * URI (Upper Respiratory Infection) (Eritrean) in this encounter* Andrea Hubbard MD - 12/25/2017 Take medications as prescribed 3 tablets daily for 5 [address] Follow [address] Gonzalez if thingsare not improving after that. Return if needed for severe pain or other worse in this encounter Summary Purpose Family History No Family History Records FoundNo Family History Records FoundNo Family History Records FoundNo Family History Records FoundNo Family History Records FoundNo Family History Records FoundNo Family History Records FoundNo Family History Records FoundNo Family History Records FoundNo Family History Records FoundNo Family History Records Found Advance Directives No Advanced Directives Records FoundDocuments on File Type Date Recorded Patient Relationship Specialist Expl anation Advance Directives and Livin g Will 03/21/2019 7:52 PM Documents on File Type Date Recorded Patient Relationship Specialist Expl anation Advance Directives and Livin g Will 07/07/2019 12:40 PM History of Present Illness * Yani Mosqueda LPN - 09/12/2018 1:02 PM EST Nurse reviewed ER documentation Spoke to :Akira Lubin discharge from:[facility] ER date:09-11-18 Reason for ER visit:Acute URI New Medications and/or treatment include:none Are you taking your medications as directed on the hospital discharge?no, n/a Medication list updated. 09-11-18 Education/Recommendations:PAtient reports his throat is still sore. He is no longer coughing up anyblood. He reports having some nasal congestion and cough. Suggested gargling with warm salt water and using humidifier. He reports he is taking robitussin and it is helping. He denies fever. He is eating and drinking ok. Hospital ER revisit within past 30 days? no Same or different diagnosis? n/a Appointments made:patient will call pcp to follow up as needed. in this encounter* Amarilis Ayers PA-C - 10/18/2018 1:34 PM EST PATIENT NAME: Lesley Heller [facility] [address] [place] [id number] Dept: [phone] Loc: [phone] : 1995 DATE OF VISIT: 10/18/2018 #: [id number] PROVIDER: Amarilis Ayers PA-C HPI: Lesley Heller is a 22 y.o. male presenting with URI (x 1 week) URI This is a new problem. The current episode started in the past 7 days. The problem has been gradually worsening. There has been no fever. Associated symptoms include congestion, coughing, rhinorrhea,sinus pain, a sore throat and wheezing. Pertinent negatives include no abdominal pain, chest pain, diarrhea, ear pain, headaches, nausea or vomiting. Treatments tried: Pseudofed. The treatment provided no relief. Patient Active Problem List Diagnosis SNOMED CT(R) Tremor, essential ESSENTIAL TREMOR Social History Tobacco Use Smoking status: Current Every Day Smoker Packs/day: 0.50 Types: Cigarettes Smokeless tobacco: Former User Types: Chew Substance Use Topics Alcohol use: Yes Alcohol/week: 0.0 oz Comment: social drinker Drug use: No Family History Problem Relation Age of Onset Hypertension Mother Restless legs syndrome Mother Allergies Allergen Reactions Penicillin G Hives REVIEW OF SYSTEMS: Review of Systems Constitutional: Positive for fatigue. Negative for chills and fever. HENT: Positive for congestion, postnasal drip, rhinorrhea, sinus pressure, sinus pain and sore throat. Negative for ear discharge and ear pain. Eyes: Negative for pain and discharge. Respiratory: Positive for cough and wheezing. Negative for shortness of breath. Cardiovascular: Negative for chest pain. Gastrointestinal: Negative for abdominal pain, diarrhea, nausea and vomiting. Neurological: Negative for headaches. VITALS: BP 111/67 Pulse 79 Ht 5' 11 Wt 83.4 kg (183 lb 12.8 oz) SpO2 98% BMI 25.63 kg/m PHYSICAL EXAM: Physical Exam Constitutional: He appears well-developed and well-nourished. No distress. HENT: Right Ear: External ear normal. Left Ear: External ear normal. Nose: Rhinorrhea present. Right sinus exhibits maxillary sinus tenderness. Right sinus exhibits no frontal sinus tenderness. Left sinus exhibits maxillary sinus tenderness. Left sinus exhibits no frontal sinus tenderness. Mouth/Throat: Uvula is midline and oropharynx is clear and moist. No oropharyngeal exudate. Cardiovascular: Normal rate, regular rhythm and intact distal pulses. Pulmonary/Chest: Effort normal and breath sounds normal. Abdominal: Soft. Bowel sounds are normal. Skin: No rash noted. Vitals reviewed. PROCEDURE: Procedures ORDERS PLACED THIS VISIT: No orders of the defined types were placed in this encounter. RESULTS: No results found for this or any previous visit (from the past 1 hour(s)). No images are attached to the encounter. ASSESSMENT/PLAN: ICD-10-CM ICD-9-CM 1. Acute non-recurrent maxillary sinusitis J01.00 461.0 MEDICATIONS: Medication List Accurate as of 10/18/18 1:39 PM. If you have any questions, ask your nurse or doctor. CONTINUE taking these medications ibuprofen 400 MG tablet Commonly known as: ADVIL,MOTRIN FOLLOW UP: Return if symptoms worsen or fail to improve. Please follow up with your Primary Care Provider (listed below): Name: Duncan Gonzalez MD Address: [address] [place] [address] in this encounter* Arabella Marcelo LPN - 10/19/2018 8:53 AM EST Patient [facility] in the Ur[facility] at [facility] by Amarilis Ayers PA-C on 10/18/2018. in this encounter* Duncan Lugo PA-C - 11/24/2018 3:13 PM EDT Subjective: Lesley Heller is a 22 y.o. male being seen 11/24/18 for Urinary Tract Infection (burning with urination) The patient has a had burning intermittently over the past several months. Seemed to be getting worse today. No fever or chills. Urinary Frequency This is a new problem. The current episode started more than 1 month ago. The problem occurs intermittently. The problem has been waxing and waning. The quality of the pain is described as burning. The pain is mild. There has been no fever. The fever has been present for less than 1 day. He is sexually active. There is no history of pyelonephritis. Associated symptoms include frequency. Pertinentnegatives include no chills, discharge, flank pain, hematuria, hesitancy, nausea, possible , sweats, urgency or vomiting. He has tried nothing for the symptoms. The treatment provided no relief. There is no history of catheterization, kidney stones, recurrent UTIs, a single kidney, urinary stasis or a urological procedure. Review of Systems Constitutional: Negative for chills. Gastrointestinal: Negative for nausea and vomiting. Genitourinary: Positive for frequency. Negative for flank pain, hematuria, hesitancy and urgency. Histories: No current outpatient medications on file. No current facility-administered medications for this visit. Allergies Allergen Reactions Penicillin G Hives Past Medical History: Diagnosis Date Back pain Dyslexia Heart murmur Tremors of nervous system Past Surgical History: Procedure Laterality Date ADENOIDECTOMY TONSILLECTOMY Family History Problem Relation Age of Onset Hypertension Mother Restless legs syndrome Mother Social History Socioeconomic History Marital status: Single Spouse name: None Number of children: None Years of education: None Highest education level: None Social Needs Financial resource strain: None Food insecurity - worry: None Food insecurity - inability: None Transportation needs - medical: None Transportation needs - non-medical: None Occupational History None Tobacco Use Smoking status: Current Every Day Smoker Packs/day: 0.50 Types: Cigarettes Smokeless tobacco: Former User Types: Chew Substance and Sexual Activity Alcohol use: Yes Alcohol/week: 0.0 oz Comment: social drinker Drug use: No Sexual activity: None Other Topics Concern None Social History Narrative None Social History Tobacco Use Smoking Status Current Every Day Smoker Packs/day: 0.50 Types: Cigarettes Smokeless Tobacco Former User Types: Chew Social History Substance and Sexual Activity Drug Use No Social History Substance and Sexual Activity Sexual Activity Not on file Objective: BP 113/75 Pulse 78 Temp 97.5 F (36.4 C) (Tympanic) Resp 18 Ht 5' 11 Wt 83 kg (183 lb) SpO2 99% BMI 25.52 kg/m Physical Exam Constitutional: He is oriented to person, place, and time. He appears well- developed and well-nourished. HENT: Head: Normocephalic and atraumatic. Right Ear: External ear normal. Nose: Nose normal. Mouth/Throat: Oropharynx is clear and moist. Eyes: Pupils are equal, round, and reactive to light. Conjunctivae are normal. Neck: Normal range of motion. Neck supple. Cardiovascular: Normal rate, regular rhythm and normal heart sounds. Pulmonary/Chest: Effort normal and breath sounds normal. Abdominal: Soft. Bowel sounds are normal. Musculoskeletal: Normal range of motion. Neurological: He is alert and oriented to person, place, and time. Skin: Skin is warm. Psychiatric: He has a normal mood and affect. His behavior is normal. Thought content normal. Nursing note and vitals reviewed. Test Results: No results found for this or any previous visit (from the past 168 hour(s)). Procedure: Procedures Assessment/ Plan: There are no diagnoses linked to this encounter. Culture sent and results to follow and we will treat accordingly. Pt will follow up with PCP. Discussed over the counter medications for symptomatic management and side effects of medications. Recommended taking all medications with food and to stop medications if they develop any signs of anallergic reaction. Educated patient and/or guardian about signs and symptoms that would warrant further immediate evaluation. Recommended that they should return to urgent care, make an appointment with their family physician, or go to the emergency room if symptoms persist or get acutely worse. Recommended follow upwithin the next week with their PCP or to get established with a PCP soon in order to follow up appropriately. Duncan Lugo PA-C 11/24/18 in this encounter* Duncan Gonzalez MD - 11/29/2018 3:56 PM EDT Subjective Patient ID: Lesley Heller is a 22 y.o. male. Dysuria This is a new problem. Episode onset: Started over1 month ago. The problem occurs intermittently. The problem has been gradually improving. The quality of the pain is described as burning. The pain is at a severity of 4/10. The pain is moderate. There has been no fever. He is sexually active. Thereis no history of pyelonephritis. Associated symptoms include a discharge. Pertinent negatives include no flank pain, frequency, hematuria, sweats or urgency. He has tried nothing (Has U/A at and it was normal as was the culture ) for the symptoms. The following portions of the patient's history were reviewed and updated as appropriate: His family history includes Hypertension in his mother; Restless legs syndrome in his mother. He reports that he has been smoking cigarettes. He has been smoking about 0.50 packs per day. He has quit using smokeless tobacco. His smokeless tobacco use included chew. He reports that he drinks alcohol. He reports that he does not use drugs. No current outpatient medications on file prior to visit. No current facility-administered medications on file prior to visit. He is allergic to penicillin g.. Review of Systems Constitutional: Negative for activity change, appetite change and fever. Gastrointestinal: Negative for abdominal pain. Genitourinary: Positive for dysuria. Negative for flank pain, frequency, hematuria and urgency. Neurological: Negative for dizziness, light-headedness and headaches. Objective Physical Exam Constitutional: He is oriented to person, place, and time. He appears well- developed and well-nourished. No distress. Eyes: Pupils are equal, round, and reactive to light. Conjunctivae are normal. Cardiovascular: Normal rate and regular rhythm. Pulmonary/Chest: Effort normal. Abdominal: Soft. Normal appearance and bowel sounds are normal. There is no tenderness. Genitourinary: Penis normal. Genitourinary Comments: Testicles and structures normal Musculoskeletal: He exhibits no edema. Neurological: He is alert and oriented to person, place, and time. Assessment/Plan: Diagnoses and all orders for this visit: Acute prostatitis - doxycycline hyclate (VIBRA-TABS) 100 MG tablet; Take 1 (one) tablet (100 mg total) by mouth 2 (two) times a day . documented in this encounter* Amarilis Ayers PA-C - 03/21/2019 7:59 PM EDT PATIENT NAME: Lesley Heller [facility] [address] [facility] [address] Dept: [phone] Loc: [phone] : 1995 DATE OF VISIT: 03/21/2019 #: [id number] PROVIDER: Amarilis Ayers PA-C Lesley Heller is a 23 y.o. male who presents with Facial Pain (nose pain ) HPI WITH ASSESSMENT AND PLAN: Patient reports nose pain x 1 week. He denies any trauma or injury. He reports increased rhinorrheaand headaches (parietal region) that is resolved with advil. He denies any sinus pressure, epistaxis, eye pain, ear pain. No hx of seasonal allergies. VISIT SUMMARY: Lesley was seen today for facial pain. Diagnoses and all orders for this visit: Rhinorrhea - fluticasone propionate (FLONASE ALLERGY RELIEF) 50 mcg/actuation nasal spray; Instill 2 (two) sprays into each nostril daily . Condition and plan discussed with patient in detail. Patient agrees with plan and verbalizes no questions or concerns. Risk, benefits, and side effects of medicines discussed with the patient, and patient agrees with plan. For any new medications prescribed today, patient was educated about indications for the medication, how to take the medication, and potential side effects of the medication. Follow up: Return if symptoms worsen or fail to improve. Please follow up with your Primary Care Provider (listed below): Name: Duncan Gonzalez MD Address: [address] [place] [address] Keep the following upcoming appointments: No future appointments. The following portions of the patient's history were reviewed and updated as appropriate: allergies, current medications, past family history, past medical history, past social history, and past surgical history. PAST HISTORY: Past Medical History: Diagnosis Date Back pain Dyslexia Heart murmur Tremors of nervous system Past Surgical History: Procedure Laterality Date ADENOIDECTOMY TONSILLECTOMY Current Outpatient Medications Medication Sig Dispense Refill fluticasone propionate (FLONASE ALLERGY RELIEF) 50 mcg/actuation nasal spray Instill 2 (two) spraysinto each nostril daily . 16 g 0 No current facility-administered medications for this visit. Allergies Allergen Reactions Penicillin G Hives Tobacco History: reports that he has been smoking cigarettes. He has been smoking about 0.50 packs per day. He has quit using smokeless tobacco. His smokeless tobacco use included chew. He reports that he drinks alcohol. He reports that he does not use drugs. ROS: Review of Systems Constitutional: Negative for chills and fever. HENT: Positive for rhinorrhea. Negative for congestion, ear discharge, ear pain, facial swelling, nosebleeds, postnasal drip, sinus pressure, sneezing and sore throat. Respiratory: Negative for cough, shortness of breath and wheezing. Cardiovascular: Negative for chest pain and palpitations. Gastrointestinal: Negative for vomiting. Neurological: Positive for headaches. PHYSICAL EXAM: Vitals: 03/21/191957 BP: 120/73 Pulse: 84 Temp: 99 F (37.2 C) SpO2: 98% Weight: 86 kg (189 lb 9.6 oz) Height: 5' 11 Physical Exam Constitutional: He appears well-developed and well-nourished. HENT: Right Ear: Tympanic membrane and ear canal normal. Left Ear: Tympanic membrane and ear canal normal. Nose: Rhinorrhea and sinus tenderness present. No nose lacerations, nasal deformity, septal deviation or nasal septal hematoma. No epistaxis. No foreign bodies. Right sinus exhibits no maxillary sinus tenderness. Left sinus exhibits no maxillary sinus tenderness. Mouth/Throat: Uvula is midline and oropharynx is clear and moist. Cardiovascular: Normal rate, regular rhythm, normal heart sounds and intact distal pulses. Pulmonary/Chest: Effort normal and breath sounds normal. Skin: No rash noted. Vitals reviewed. documented in this encounter* Arabella Marcelo LPN - 03/26/2019 12:42 PM EDT Patient seen in the Urgent [facility] Clinic at [facility] by Amarilis Anderson on 03/21/2019. documented in this encounter* Dami Abdi MD - 06/19/2020 1:09 PM EST ASSESSMENT / PLAN: Problem List Items Addressed This Visit Other Encounter for smoking cessation counseling Chronic back pain Tobacco Abuse Other Visit Diagnoses Well adult exam - Primary 1. Well adult exam Patient is here to establish care with a primary care doctor today. Patient had a primary care doctor back in [facility] and has moved to [place]. 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 Patient has been trying to get back to work as a amusement park ride mechanic currently. Patientotherwise overall has been doing pretty well except for his chronic back pain. Patient said that his is currently he has 2 biological kids and 1 stepson.Discussed improvements in lifestyle including diet and exercise. Increase consumption of whole foods, avoiding processed foods. Avoid foods high in fat, salt, and sugar. Consume at least 5-6 servings of fruits and vegetables daily. Exercise recommended 150min/week with muscle/bone-strengthening and aerobic activity. 2. Chronic back pain From a work accident at when he was 17 years old currently still having sharp pain is is midline ofthe back does sometimes press bilaterally patient does endorse some pain with some range of motion especially muscle tightness and some sharp pain. Patient today was provided with home physical therapy exercises to try. If patient does not improve patient will be sent to physical therapist. Patientin the past only have tried [id number] painkillers as well as back stretching exercise. 3. Smoking cessation Patient is currently smoking half a pack a day which is decreased from 1 pack a day in the past. Patient noticed that he started smoking when he was 13 years old cigars and started smoking cigaretteswhen he was 16. Patient did try vaping and e-cigarettes but was only able to tolerate for few days then stopped using it and went back to his cigarette smoking. Patient said that he also used to chewfor about 1 year until he stopped. Provided tobacco cessation education today as well as provided the patient with 1 800 Quit NOW card to try out other methods of smoking cessation including gums, lozenges, patches, etc. Continued work on healthy diet and consistent aerobic exercise (2.5-3 hours minimum weekly) were suggested and discussed. The patient was instructed on obtaining an ideal body weight. The patient will call with questions, concerns and for changing symptoms. Health Maintenance Due Topic Date Due Depression Screening (PHQ9) 2005 HIV Screening 2008 Hepatitis C Screening 01/01/2012 Hearing and vision grossly normal Patient Name: Lesley Heller Date: 06/19/20 Patient : 1995 Patient Age: 24 y.o. CC: Chief Complaint Patient presents with Establish Care SUBJECTIVE Patient presents for a full history and physical. Patient has been doing well for the past 1 year, he does have a chronic back pain that started after on an accident when he was 17yo at his job. Patient said that he does notice some pain with certain movements usually very sharp right in the middle of his lower back that sometimes spreads bilaterally. Patient has tried some OTC pain killers and back stretches, but no physical therapy. Patient also noted that he has been smoking for a long period of time and has tried to quit in the past by using variolous methods usually going cold turkey. Patient still has thought about quitting Diet Breakfast: banana, bowel of cereal Lunch: egg sandwich, cheese burger Dinner: pasta and protein, spinach, green peas Snacks: Bryce[employer] peanut butter, brownies Drinks: mountain dew 3-4 cans, water 1-2 bottles Exercise: No exercise, walks once a while Past Medical History: Diagnosis Date ADHD 13 yo stopped taking it Back pain Dyslexia Heart murmur Knee pain Toeing-in Tremors of nervous system Past Surgical History: Procedure Laterality Date ADENOIDECTOMY TONSILLECTOMY Allergies: Penicillin g Current Outpatient Medications Medication Sig Dispense Refill albuterol 90 mcg/actuation inhaler Inhale 2 puffs every 4 (four) hours as needed . No current facility-administered medications for this visit. Social History Socioeconomic History Marital status: Single Spouse name: Not on file Number of children: Not on file Years of education: Not on file Highest education level: Not on file Occupational History Not on file Social Needs Financial resource strain: Not on file Food insecurity Worry: Not on file Inability: Not on file Transportation needs Medical: Not on file Non-medical: Not on file Tobacco Use Smoking status: Current Every Day Smoker Packs/day: 0.50 Years: 11.00 Pack years: 5.50 Types: Cigarettes Smokeless tobacco: Former User Types: Chew Substance and Sexual Activity Alcohol use: Yes Alcohol/week: 1.0 - 2.0 standard drinks Types: 1 - 2 Cans of beer per week Frequency: Monthly or less Drinks per session: 3 or 4 Comment: social drinker, every 3 months Drug use: No Sexual activity: Yes Partners: Female Lifestyle Physical activity Days per week: Not on file Minutes per session: Not on file Stress: Not on file Relationships Social connections Talks on phone: Not on file Gets together: Not on file Attends orthodox service: Not on file Active member of club or organization: Not on file Attends meetings of clubs or organizations: Not on file Relationship status: Not on file Other Topics Concern Not on file Social History Narrative Not on file Family History Problem Relation Age of Onset Hypertension Mother Restless legs syndrome Mother Diabetes Maternal Grandmother Heart disease Paternal Grandfather Vaccinations: Up-to-date Review of Systems Constitutional: Negative for chills and fever. HENT: Negative for congestion. Eyes: Negative for visual disturbance. Respiratory: Negative for cough and shortness of breath. Cardiovascular: Negative for chest pain. Gastrointestinal: Negative for abdominal pain, diarrhea, nausea and vomiting. Genitourinary: Negative for dysuria. Musculoskeletal: Negative for back pain. Neurological: Negative for headaches. Psychiatric/Behavioral: Negative for dysphoric mood. OBJECTIVE Physical Exam Constitutional: Appearance: He is well-developed. HENT: Head: Normocephalic and atraumatic. Cardiovascular: Rate and Rhythm: Normal rate and regular rhythm. Heart sounds: Normal heart sounds. No murmur. No friction rub. No gallop. Pulmonary: Effort: Pulmonary effort is normal. No respiratory distress. Breath sounds: Normal breath sounds. No wheezing or rales. Abdominal: General: There is no distension. Palpations: Abdomen is soft. There is no mass. Tenderness: There is no abdominal tenderness. There is no guarding. Musculoskeletal: Lumbar back: He exhibits decreased range of motion and tenderness. He exhibits no bony tenderness, no swelling, no edema, no deformity and no laceration. Comments: Some muscle tightness and sharp pain associated with flexion and extension of the back along with side bending bilaterally. Patient did not have any discomfort with rotation. Skin: General: Skin is warm and dry. Neurological: Mental Status: He is alert and oriented to person, place, and time. BP 137/77 (BP Location: Left arm, Patient Position: Sitting, BP Cuff Size: Adult) Pulse 90 Temp98.2 F (36.8 C) (Oral) Ht 5' 9.09 Wt 89.9 kg (198 lb 3.2 oz) SpO2 96% BMI 29.19 kg/m Depression Screening 06/19/2020 Little interest or pleasure in doing things 0 Feeling down, depressed, or hopeless 0 PHQ-2 Total Score 0 Trouble falling or staying asleep, or sleeping too much 1 Feeling tired or having little energy 0 Poor appetite or overeating 0 Feeling bad about yourself - or that you are a failure or have let yourself or your family down 0 Trouble concentrating on things, such as reading the newspaper or watching television 0 Moving or speaking so slowly that other people could have noticed. Or the opposite - being so fidgety or restless that you have been moving around a lot more than usual 0 Thoughts that you would be better off , or of hurting yourself in some way 0 PHQ-9 Total Score 1 If you checked off any problems, how difficult have these problems made it for you to do your work,take care of things at home, or get along with other people? Somewhat difficult * Amarilis Uribe CNP - 06/19/2020 1:00 PM EST Patient scheduled for upcoming appointment. Prechart reviewed for Health Maintenance. Patient has the following outstanding care gap(s) that need addressed this visit: Health Maintenance Due Topic Date Due Tetanus: Every 10yrs 1993 Order pended Wellness Visit 1996 Patient to schedule Depression Screening (PHQ9) 2005 To be completed in office HIV Screening 2008 Order pended Hepatitis C Screening 01/01/2012 Order pended Sequential Influenza Vaccine (1) 04/14/2020 Order pended Some of these care gaps have an order pending for provider upon her follow up visit with provider. Patient will need instructed regarding vaccines, labs, screenings and exams upon encounter. (Note: Traditional MEDICARE does NOT cover Zoster Shingrix, Tetanus, or Tdap under medical benefit,Medicare patients can get these vaccines at their local Pharmacy. For these patients inform them toget these vaccines at their local pharmacy. Patient will need to call the office so they can updatetheir vaccine records.) Amarilis Uribe CNP 06/17/20 9:02 AM documented in this encounter* Ammon Damon MD - 08/27/2020 9:35 AM EST DATE: 08/27/2020 CHIEF COMPLAINT: Seeks elective permanent sterilization. HISTORY OF PRESENT ILLNESS: Lesley Heller is a 24 y.o. male who has children does not want tohave any more children. He is considering elective permanent sterilization and would like to proceed with a bilateral vasectomy. From a urinary standpoint, he has no lower urinary tract symptoms or complaints. He has no bother with his urinary status. From an erectile standpoint, he has good erections and no complaints. ASSESSMENT: Desires Elective Sterilization by means of bilateral vasectomy. - Vasectomy is intended to be a permanent form of contraception. - Vasectomy does not produce immediate sterility. - Following vasectomy, another form of contraception is required until vas occlusion is confirmed by post- vasectomy semen analysis (PVSA). - Even after vas occlusion is confirmed, vasectomy is not 100% reliable in preventing . - The risk of after vasectomy is approximately 1 in 2,000 for men who have post-vasectomyazoospermia or PVSA showing rare non-motile sperm (RNMS). - Repeat vasectomy is necessary in =1% of vasectomies, provided that a technique for vas occlusion known to have a low occlusive failure rate has been used. - Options for fertility after vasectomy include vasectomy reversal and sperm retrieval with in vitro fertilization. These options are not always successful, and they may be expensive. - The rates of surgical complications such as symptomatic hematoma and infection are 1-2%. We had an extensive discussion regarding the meaning of bilateral vasectomy a how that this is a permanent procedure. We discussed the procedure itself as well as followup. He understands that this is an approximately 3 to 6 months period for verifying that he is sterile. The patient understands and would like to proceed. All questions were answered. PLAN: 1. Proceed with Bilateral Vasectomy. Informed consent. The risks, benefits, alternatives of planned procedure including but not limited to, infection, bleeding, and the need for subsequent secondary procedure were discussed with the patient. He also understands that he needs at least 2 negative semen samples before he can be considered sterile. The patient understands the risks, benefits, and alternatives, and agrees to proceed. HISTORY: PMH Past Medical History: Diagnosis Date ADHD 13 yo stopped taking it Back pain Dyslexia Heart murmur Knee pain Toeing-in Tremors of nervous system PS Past Surgical History: Procedure Laterality Date ADENOIDECTOMY TONSILLECTOMY Social History Socioeconomic History Marital status: Single Spouse name: Not on file Number of children: Not on file Years of education: Not on file Highest education level: Not on file Occupational History Not on file Social Needs Financial resource strain: Not on file Food insecurity Worry: Not on file Inability: Not on file Transportation needs Medical: Not on file Non-medical: Not on file Tobacco Use Smoking status: Current Every Day Smoker Packs/day: 0.50 Years: 11.00 Pack years: 5.50 Types: Cigarettes Smokeless tobacco: Former User Types: Chew Substance and Sexual Activity Alcohol use: Yes Alcohol/week: 1.0 - 2.0 standard drinks Types: 1 - 2 Cans of beer per week Frequency: Monthly or less Drinks per session: 3 or 4 Comment: social drinker, every 3 months Drug use: No Sexual activity: Yes Partners: Female Lifestyle Physical activity Days per week: Not on file Minutes per session: Not on file Stress: Not on file Relationships Social connections Talks on phone: Not on file Gets together: Not on file Attends orthodox service: Not on file Active member of club or organization: Not on file Attends meetings of clubs or organizations: Not on file Relationship status: Not on file Other Topics Concern Not on file Social History Narrative Not on file FH Family History Problem Relation Age of Onset Hypertension Mother Restless legs syndrome Mother Diabetes Maternal Grandmother Heart disease Paternal Grandfather ALLERGIES AND MEDICATIONS Allergies: Penicillin g Current Outpatient Medications: albuterol 90 mcg/actuation inhaler, Inhale 2 puffs every 4 (four) hours as needed ., Disp: , Rfl: REVIEW OF SYSTEMS: CONSTITUTIONAL: No weight loss, malaise, or fatigue EYES: No changes in vision, no blurry vision EARS, NOSE, MOUTH, THROAT: No change in hearing, No difficulty swallowing. CARDIOVASCULAR: No chest pain or heart palpitations. RESPIRATORY: No difficulty breathing or wheezing. GI: No changes in bowel habit. No blood in his stool. : See HPI. MUSCULOSKELETAL: No joint pain or swelling. VASCULAR: No peripheral edema. No calf pain with exertion. NEURO: No headaches, denies dizziness or weakness. SKIN: No rashes or lesions. PSYCHIATRIC: No depressive or suicidal thoughts PHYSICAL EXAM: CONSTITUTIONAL: VITAL SIGNS: Vitals: 08/27/20 0909 BP: 120/79 Pulse: 76 Weight: 90.7 kg (200 lb) Height: 5' 8 GENERAL: Well appearing. No acute distress. EYES: normal vision, extra-occular movements intact EARS, NOSE, MOUTH, THROAT: normal external ear, normal hearing, trachea midline RESPIRATORY: Normal/non-labored respiratory effort MUSCULOSKELETAL: Normal gait, normal extremity range of motion with no edema LYMPH: No cervical or supraclavicular lymphadenopathy NEURO: , CN II-XII grossly intact, No focal sensory or motor deficits are noted. PSYCHATRIC: Alert and oriented x3, mood and affect appropriate SKIN: Warm, dry, and well perfused. Good turgor. No rashes, ulcers, or lesions visible DATA: IMAGING: POC: . Ammon Damon MD documented in this encounter Instructions * Patient Instructions* Amarilis Ayers PA-C - 10/18/2018 1:39 PM EST Saline Nasal Washes: Care Instructions Your Care Instructions Saline nasal washes help keep the nasal passages open by washing out thick or dried mucus. This simple remedy can help relieve symptoms of allergies, sinusitis, and colds. It also can make the nose feel more comfortable by keeping the mucous membranes moist. You may notice a little burning sensation in your nose the first few times you use the solution, but this usually gets better in a few days. Follow-up care is a sotelo part of your treatment and safety. Be sure to make and go to all appointments, and call your doctor if you are having problems. It's also a good idea to know your test resultsand keep a list of the medicines you take. How can you care for yourself at home? You can buy premixed saline solution in a squeeze bottle or other sinus rinse products at a drugstore. Read and follow the instructions on the label. You also can make your own saline solution by adding 1 teaspoon of salt and 1 teaspoon of baking soda to 2 cups of distilled water. If you use a homemade solution, pour a small amount into a clean bowl. Using a rubber bulb syringe,squeeze the syringe and place the tip in the salt water. Pull a small amount of the salt water intothe syringe by relaxing your hand. Sit down with your head tilted slightly back. Do not lie down. Put the tip of the bulb syringe or the squeeze bottle a little way into one of your nostrils. Gently drip or squirt a few drops into thenostril. Repeat with the other nostril. Some sneezing and gagging are normal at first. Gently blow your nose. Wipe the syringe or bottle tip clean after each use. Repeat this 2 or 3 times a day. Use nasal washes gently if you have nosebleeds often. When should you call for help? Watch closely for changes in your health, and be sure to contact your doctor if: You often get nosebleeds. You have problems doing the nasal washes. Where can you learn more? Log into your personal health record on https://[employer] and enter B784 in the Education box to learn more about Saline Nasal Washes: Care Instructions. Current as of: November 07, 2017 Content Version: .9 6044-2586 [employer]. Care instructions adapted under license by your healthcare professional. If you have questions about a medical condition or this instruction, always ask your healthcare professional. [employer] disclaims any warranty or liability for your use of this information. FOLLOW UP: Return if symptoms worsen or fail to improve. Please follow up with your Primary Care Provider (listed below): Name: Duncan Gonzalez MD Address: [address] [place], [place] [id number] in this encounter* Patient Instructions* Duncan Lugo PA-C - 11/24/2018 3:15 PM EDT Frequent Urination: Care Instructions Your Care Instructions An urge to urinate frequently but usually passing only small amounts of urine is a common symptom of urinary problems, such as urinary tract infections. The bladder may become inflamed. This can cause the urge to urinate. You may try to urinate more often than usual to try to soothe that urge. Frequent urination also may be caused by sexually transmitted infections (STIs) or kidney stones. Or it may happen when something irritates the tube that carries urine from the bladder to the outsideof the body (urethra). It may also be a sign of diabetes. The cause may be hard to find. You may need tests. Follow-up care is a sotelo part of your treatment and safety. Be sure to make and go to all appointments, and call your doctor if you are having problems. It's also a good idea to know your test resultsand keep a list of the medicines you take. How can you care for yourself at home? Drink extra water for the next day or two. This will help make the urine less concentrated. (If youhave kidney, heart, or liver disease and have to limit fluids, talk with your doctor before you increase the amount of fluids you drink.) Avoid drinks that are carbonated or have caffeine. They can irritate the bladder. For women: Urinate right after you have sex. After you go to the bathroom, wipe from front to back. Avoid douches, bubble baths, and feminine hygiene sprays. And avoid other feminine hygiene productsthat have deodorants. When should you call for help? Call your doctor now or seek immediate medical care if: You have new symptoms, such as fever, nausea, or vomiting. You have new or worse symptoms of a urinary problem. For example: ? You have blood or pus in your urine. ? You have chills or body aches. ? It hurts to urinate. ? You have groin or belly pain. ? You have pain in your back just below your rib cage (the flank area). Watch closely for changes in your health, and be sure to contact your doctor if you feel thirstier than usual. Where can you learn more? Log into your personal health record on https://[employer] and enter I431 in the Education box to learn more about Frequent Urination: Care Instructions. Current as of: August 01, 2018 Content Version: 12.0 4044-9303 [employer]. Care instructions adapted under license by your healthcare professional. If you have questions about a medical condition or this instruction, always ask your healthcare professional. [employer] disclaims any warranty or liability for your use of this information. We will send out a culture today and if positive we will call with instructions and antibiotics. Increase your water intake to 1/2 gallon a day and decreased your Mt. Dew intake. Please follow up with your family doctor in three to five days or sooner if worse. Discussed over the counter medications for symptomatic management and side effects of medications. Recommended taking all medications with food and to stop medications if they develop any signs of anallergic reaction. Educated patient and/or guardian about signs and symptoms that would warrant further immediate evaluation. Recommended that they should return to urgent care, make an appointment with their family physician, or go to the emergency room if symptoms persist or get acutely worse. Recommended follow upwithin the next week with their PCP or to get established with a PCP soon in order to follow up appropriately. in this encounter* Patient Instructions* Amarilis Ayers PA-C - 03/21/2019 8:08 PM EDT FOLLOW UP: Return if symptoms worsen or fail to improve. Please follow up with your Primary Care Provider (listed below): Name: Duncan Gonzalez MD Address: [address] [place] [id number] Allergies: Care Instructions Your Care Instructions Allergies occur when your body's defense system (immune system) overreacts to certain substances. The immune system treats a harmless substance as if it were a harmful germ or virus. Many things can cause this overreaction, including pollens, medicine, food, dust, animal dander, and mold. Allergies can be mild or severe. Mild allergies can be managed with home treatment. But medicine may be needed to prevent problems. Managing your allergies is an important part of staying healthy. Your doctor may suggest that you have allergy testing to help find out what is causing your allergies. When you know what things trigger your symptoms, you can avoid them. This can prevent allergy symptoms and other health problems. For severe allergies that cause reactions that affect your whole body (anaphylactic reactions), your doctor may prescribe a shot of epinephrine to carry with you in case you have a severe reaction. Learn how to give yourself the shot and keep it with you at all times. Make sure it is not . Follow-up care is a sotelo part of your treatment and safety. Be sure to make and go to all appointments, and call your doctor if you are having problems. It's also a good idea to know your test resultsand keep a list of the medicines you take. How can you care for yourself at home? If you have been told by your doctor that dust or dust mites are causing your allergy, decrease thedust around your bed: ? Wash sheets, pillowcases, and other bedding in hot water every week. ? Use dust-proof covers for pillows, duvets, and mattresses. Avoid plastic covers because they teareasily and do not breathe. Wash as instructed on the label. ? Do not use any blankets and pillows that you do not need. ? Use blankets that you can wash in your washing machine. ? Consider removing drapes and carpets, which attract and hold dust, from your bedroom. If you are allergic to house dust and mites, do not use home humidifiers. Your doctor can suggest ways you can control dust and mites. Look for signs of cockroaches. Cockroaches cause allergic reactions. Use cockroach baits to get ridof them. Then, clean your home well. Cockroaches like areas where grocery bags, newspapers, empty bottles, or cardboard boxes are stored. Do not keep these inside your home, and keep trash and food containers sealed. Seal off any spots where cockroaches might enter your home. If you are allergic to mold, get rid of furniture, rugs, and drapes that smell musty. Check for mold in the bathroom. If you are allergic to outdoor pollen or mold spores, use air-conditioning. Change or clean all filters every month. Keep windows closed. If you are allergic to pollen, stay inside when pollen counts are high. Use a vacuum last cleaner with aHEPA filter or a double-thickness filter at least two times each week. Stay inside when air pollution is bad. Avoid paint fumes, perfumes, and other strong odors. Avoid conditions that make your allergies worse. Stay away from smoke. Do not smoke or let anyone else smoke in your house. Do not use fireplaces or wood- burning stoves. If you are allergic to your pets, change the air filter in your furnace every month. Use high-efficiency filters. If you are allergic to pet dander, keep pets outside or out of your bedroom. Old carpet and cloth furniture can hold a lot of animal dander. You may need to replace them. When should you call for help? Give an epinephrine shot if: You think you are having a severe allergic reaction. You have symptoms in more than one body area, such as mild nausea and an itchy mouth. After giving an epinephrine shot call 911, even if you feel better. Call 911 if: You have symptoms of a severe allergic reaction. These may include: ? Sudden raised, red areas (hives) all over your body. ? Swelling of the throat, mouth, lips, or tongue. ? Trouble breathing. ? Passing out (losing consciousness). Or you may feel very lightheaded or suddenly feel weak, confused, or restless. You have been given an epinephrine shot, even if you feel better. Call your doctor now or seek immediate medical care if: You have symptoms of an allergic reaction, such as: ? A rash or hives (raised, red areas on the skin). ? Itching. ? Swelling. ? Belly pain, nausea, or vomiting. Watch closely for changes in your health, and be sure to contact your doctor if: You do not get better as expected. Where can you learn more? Log into your personal health record on https://[employer] and enter W171 in the Education box to learn more about Allergies: Care Instructions. Current as of: September 03, 2018 Content Version: 12.20054878-9791 [employer]. Care instructions adapted under license by your healthcare professional. If you have questions about a medical condition or this instruction, always ask your healthcare professional. [employer] disclaims any warranty or liability for your use of this information. Using a Nasal Steroid [place]: Care Instructions Your Care Instructions Your doctor may suggest using a corticosteroid nasal spray for your allergy symptoms or sinus problems. These sprays reduce the swelling inside the nose and sinuses. Unlike decongestant nasal sprays, steroid sprays won't lead to more swelling when you stop taking them. These sprays start working in a few days, but it may take several weeks before you get the full effect. Most side effects are minor. The most common complaint is a burning feeling in the nose right afterthe spray is used. Some people get nosebleeds. Follow-up care is a sotelo part of your treatment and safety. Be sure to make and go to all appointments, and call your doctor if you are having problems. It's also a good idea to know your test resultsand keep a list of the medicines you take. How can you care for yourself at home? Here are some tips for using these sprays: You may need to prime the sprayer before you use it. This means spraying it into the air a few times to make sure you get the right amount of medicine. Follow the directions on the label. Blow your nose before you spray. This will help clear out your nostrils. Gently sniff the medicine into your nose as you spray. Don't snort, or the medicine will go all theway into your throat where it won't do much good. Aim the nozzle straight toward the outer wall of your nostril. This will help keep the medicine from irritating the inner darling of your nose, especially your septum (the wall that separates your leftand right nostrils). Don't blow your nose for 10 minutes or so after you spray. And try not to sneeze. Be safe with medicines. Use this medicine exactly as prescribed. Call your doctor if you think you are having a problem with your medicine. Clean your sprayer once a week. Read the label to learn how. When should you call for help? Watch closely for changes in your health, and be sure to contact your doctor if you have any problems. Where can you learn more? Log into your personal health record on https://[employer] and enter L669 in the Education box to learn more about Using a Nasal Steroid [place]and[place]s: Care Instructions. Current as of: June 03, 2018 Content Version: [id number] [employer]. Care instructions adapted under license by your healthcare professional. If you have questions about a medical condition or this instruction, always ask your healthcare professional. [employer] disclaims any warranty or liability for your use of this information. documented in this encounter Reason for Referral Status Reason Specialty Diagnoses / Procedures Referred By Contact Referred To Contact Pending Review Procedures ECG Alicia Ribera MD [address] [place] [address] Additional Source Comments ED Notes - Destiney Parker RN - 01/17/2018 3:52 PM EDTED Provider Notes - Nader Yanez DO - 01/17/2018 3:47 PM EDTED Triage Notes - Destiney Parker RN - 01/17/2018 3:25 PM EDT Miscellaneous Notes (unrecog nized section and content) Discharge and medications discussed with patient at this time. Patient verbalized understanding and declines any other questions or needs at this time. Formatting of this note may be different from the original. [facility] ED Note: NAME: Lesley Heller 22 y.o. CSN: [id number] PCP: Duncan Gonzalez MD History: Chief Complaint: Back Pain HPI: He is a 22 y.o. male who presents with a chief complaint of Back Pain. History provided by: Patient Back Pain Location: Lumbar spine Chronicity: New Quality: Aching and stiffness Onset quality: Gradual Stiffness is present: In the morning Pain severity: Mild Timing: Intermittent Progression: Worsening PMHx: Past Medical History: Diagnosis Date Dyslexia Heart murmur Tremors of nervous system PMSx: Past Surgical History: Procedure Laterality Date ADENOIDECTOMY TONSILLECTOMY FAM. Hx: History reviewed. No pertinent family history. SOC. Hx: Social History Social History Marital status: Single Spouse name: N/A Number of children: N/A Years of education: N/A Occupational History Not on file. Social History Main Topics Smoking status: Current Every Day Smoker Packs/day: 0.50 Types: Cigarettes Smokeless tobacco: Former User Types: Chew Alcohol use 0.0 oz/week Comment: social drinker Drug use: No Sexual activity: Not on file Other Topics Concern Not on file Social History Narrative No narrative on file MEDs: Previous Medications No medications on file ALL: Allergies Allergen Reactions Penicillin G ROS: Review of Systems Constitutional: Negative. HENT: Negative. Eyes: Negative. Respiratory: Negative. Cardiovascular: Negative. Gastrointestinal: Negative. Endocrine: Negative. Genitourinary: Negative. Musculoskeletal: Positive for back pain. Skin: Negative. Allergic/Immunologic: Negative. Neurological: Negative. Hematological: Negative. Psychiatric/Behavioral: Negative. All other systems reviewed and are negative. Positives and pertinent negatives as per HPI. All other systems were reviewed and are negative. Physical Exam: Patient Vitals for the past 24 hrs: BP Temp Temp src Pulse Resp SpO2 Height Weight 06/06/18 1523 122/74 97.2 F (36.2 C ) Temporal 90 16 97 % 5' 11 74.5 kg (164 lb 3.2 oz) Physical Exam Constitutional: He is oriented to person, place, and time. He appears well- developed and well-nourished. HENT: Head: Normocephalic and atraumatic. Eyes: EOM are normal. Pupils are equal, round, and reactive to light. Neck: Normal range of motion. Neck supple. Cardiovascular: Normal rate. Pulmonary/Chest: Effort normal. Abdominal: Soft. Musculoskeletal: Normal range of motion. Mild tenderness along the sacral iliac joints bilaterally neurovascular motor intact distally Neurological: He is alert and oriented to person, place, and time. No cranial nerve deficit. He exhibits normal muscle tone. Coordination normal. Skin: Skin is warm and dry. Psychiatric: He has a normal mood and affect. Laboratory & Radiological Imaging (if done): Labs Reviewed - No data to display No orders to display Procedures ED Course / Medical Decision Making: Clinical Impression: SNOMED CT(R) 1. Acute bilateral low back pain without sciatica ACUTE LOW BACK PAIN Disposition: New Prescriptions CYCLOBENZAPRINE (FLEXERIL) 10 MG TABLET Take 1 (one) tablet (10 mg total) by mouth 3 (three) times a day as needed for muscle spasms. IBUPROFEN (ADVIL,MOTRIN) 800 MG TABLET Take 1 (one) tablet (800 mg total) by mouth every 8 (eight) hours as needed for pain. Follow with family Dr in 1-2 days , return if problems, meds as prescribed. Nader Yanez DO ED Physician [facility] Emergency Department (Please note that portions of this note have been completed with a voice recognition software. Efforts were made to correct any errors, but occasionally words are mis-transcribed.) Nader Yanez DO 01/17/18 7965 Patient states he has had back pain chronic since 2013 and has had it checked several times and was told it's nothing go home. Patient states he has never had a back x-ray to determine if he has a ruptured disc. States he does not work at the moment or do repetitive motions but did have to walk to ED for treatment. Patient states pain is in his lower back mostly in the middle but pain radiates to both sides.in this encounter Patient given discharge instructions and voices understanding. Formatting of this note may be different from the original. ED PROVIDER NOTE [facility] EMERGENCY DEPARTMENT NAME: Lesley Heller AGE: 21 y.o. : 1995 VISIT DATE: 12/25/2017 CSN: [id number] PCP: Duncan Gonzalez MD Chief Complaint Patient presents with Hearing Problem HPI Patient returns complaint of decreased hearing in his right ear. He was seen here on December 15 with a diagnosis of serous otitis media. He states he was placed on one medication for which she was given 2 tablets in the department and was prescribed 4 tablets take 1 daily for 4 days. He has been blowing his nose hard to try to pop his ear and he did pop at night but now the hearing is worse. He is noted no vertigo or tinnitis. Past Medical History: Diagnosis Date Dyslexia Heart murmur Tremors of nervous system Past Surgical History: Procedure Laterality Date ADENOIDECTOMY TONSILLECTOMY History reviewed. No pertinent family history. Social History Social History Marital status: Single Spouse name: N/A Number of children: N/A Years of education: N/A Occupational History Not on file. Social History Main Topics Smoking status: Current Every Day Smoker Packs/day: 0.25 Types: Cigarettes Smokeless tobacco: Former User Types: Chew Alcohol use 0.0 oz/week Comment: social drinker Drug use: No Sexual activity: Not on file Other Topics Concern Not on file Social History Narrative No narrative on file Previous Medications No medications on file Allergies Allergen Reactions Penicillin G Review of Systems No fever chills Skin no rash ENT stuffy nose. No sore throat. No headache Eyes no itching or drainage Neck no swelling or stiffness All other pertinent review of systems is negative Patient Vitals for the past 24 hrs: BP Temp Temp src Pulse Resp SpO2 Height Weight 12/25/17 0407 120/75 98 F (36.7 C ) Temporal 63 15 96 % 5' 11.5 73.8 kg (162 lb 11.2 oz) Physical Exam Alert nontoxic Skin warm and dry with normal color turgor no rash ENT: Right tympanic membrane is retracted. Left tympanic membrane is normal. No perforations noted. Nasal mucosa is mildly edematous. Posterior pharynx is mildly cobblestoned. Eyes show no injection Examination of hearing shows it to be mildly decreased to air conduction on the right side using the high C tuning fork. Laboratory & Radiographic Imaging (if done): No results found for this visit on 12/25/17. No orders to display Procedures MDM Chart from December 15 is reviewed. On the chart states he was placed on 12 days of tapering prednisone and does not mention any Zithromax. However it appears the patient most likely to Zithromax judging from the way it was prescribed and did not take any prednisone. I do not believe he has a bacterial infection this time I will place him on a few days of prednisone and hopefully clear everything up. There is no signs of any neurologic hearing loss. The patient has been informed that they may have pre-hypertension or hypertension based on a blood pressure reading in the Emergency Department. I recommend that the patient call the primary care provider listed on their discharge instructions or a physician of their choice as soon as possible to arrange follow-up in the next 4 weeks for further evaluation of possible pre-hypertension or hypertension. . Clinical Impression: SNOMED CT(R) 1. Right acute serous otitis media, recurrence not specified ACUTE SEROUS OTITIS MEDIA OF RIGHT EAR Follow-up Information Follow-up information has not been specified. Contact information for after-discharge care Follow-up information has not been specified. New Prescriptions PREDNISONE (DELTASONE) 20 MG TABLET Take 3 (three) tablets (60 mg total) by mouth daily for 5 days. (Please note that portions of this note may have been completed with a voice recognition software. Efforts were made to correct any errors, but occasionally words are mis-transcribed.) Andrea Hubbard MD 12/25/17 0971 Patient states he was here last week or so and diagnosed with ear infection and just finished up his medication Monday. Patient states today he felt like he could not get his right ear to pop and then finally about 30 min ago but now he cannot hear out of right ear.in this encounter Formatting of this note may be different from the original. ED PROVIDER NOTE [facility] EMERGENCY DEPARTMENT NAME: Lesley Heller AGE: 21 y.o. : 1995 VISIT DATE: 12/18/2017 CSN: [id number] PCP: Duncan Gonzalez MD Chief Complaint Patient presents with Otalgia Sore Throat History provided by: Patient Otalgia Location: Right Behind ear: No abnormality Chronicity: New Duration: 8 hours Quality: Sharp Onset quality: Sudden Severity: Severe Timing: Constant Progression: Unchanged Context: no swimming/no water in ear Associated symptoms: sore throat Risk factors: no swimming/water in ear Sore Throat Associated symptoms: ear pain Past Medical History: Diagnosis Date Heart murmur Tremors of nervous system Past Surgical History: Procedure Laterality Date ADENOIDECTOMY TONSILLECTOMY History reviewed. No pertinent family history. Social History Social History Marital status: Single Spouse name: N/A Number of children: N/A Years of education: N/A Occupational History Not on file. Social History Main Topics Smoking status: Current Every Day Smoker Packs/day: 0.25 Types: Cigarettes Smokeless tobacco: Former User Alcohol use 0.0 oz/week Comment: social drinker Drug use: No Sexual activity: Not on file Other Topics Concern Not on file Social History Narrative No narrative on file Previous Medications PREDNISONE (DELTASONE) 10 MG TABLET Take 4 tablets daily for 3 days, then 3 tablets daily for 3 days, then 2 tablets daily for 3 days, then 1 tablet daily for 3 days. Allergies Allergen Reactions Penicillin G Review of Systems Constitutional: Negative. HENT: Positive for ear pain and sore throat. Respiratory: Negative. Cardiovascular: Negative. Gastrointestinal: Negative. Genitourinary: Negative. Musculoskeletal: Negative. Skin: Negative. Neurological: Negative. Psychiatric/Behavioral: Negative. All other systems reviewed and are negative. Patient Vitals for the past 24 hrs: BP Temp Pulse Resp SpO2 Height Weight 12/18/17 2308 (!) 144/79 98.2 F (36.8 C ) 86 16 100 % 5' 11 74.8 kg (164 lb 14.5 oz) Physical Exam Constitutional: He is oriented to person, place, and time. He appears well- developed and well-nourished. HENT: Head: Normocephalic and atraumatic. Right ear redness Eyes: EOM are normal. Pupils are equal, round, and reactive to light. Neck: Normal range of motion. Neck supple. Cardiovascular: Normal rate, regular rhythm and normal heart sounds. Pulmonary/Chest: Effort normal and breath sounds normal. Abdominal: Soft. Bowel sounds are normal. Musculoskeletal: Normal range of motion. Neurological: He is alert and oriented to person, place, and time. Skin: Skin is warm. Capillary refill takes less than 2 seconds. Psychiatric: He has a normal mood and affect. His behavior is normal. Judgment and thought content normal. Nursing note and vitals reviewed. Laboratory & Radiographic Imaging (if done): No results found for this visit on 12/18/17. No orders to display Procedures MDM The patient has been informed that they may have pre-hypertension or hypertension based on a blood pressure reading in the Emergency Department. I recommend that the patient call the primary care provider listed on their discharge instructions or a physician of their choice as soon as possible to arrange follow-up in the next 4 weeks for further evaluation of possible pre-hypertension or hypertension. . Clinical Impression: SNOMED CT(R) 1. Acute serous otitis media, recurrence not specified, unspecified laterality ACUTE SEROUS OTITIS MEDIA Follow-up Information 1. Duncan Gonzalez MD. Specialty: Family Medicine [address] [place] [address] Contact information for after-discharge care Follow-up information has not been specified. New Prescriptions No medications on file (Please note that portions of this note may have been completed with a voice recognition software. Efforts were made to correct any errors, but occasionally words are mis-transcribed.) Josh Chan MD 12/18/17 2326 in this encounter (unrecognized sect ion and content) No Status Records FoundNo Status Records FoundNo Status Records FoundNo Status Records FoundNo Status Records FoundNo Status Records FoundNo Status Records FoundNo Status Records FoundNo Status Records FoundNo Status Records FoundNo Status Records Found INFORMATION SOURCE (unrecogn ized section and content) DATE CREATED AUTHOR 01/31/2018 [facility] DATE CREATED AUTHOR AUTHOR'S ORGANIZ ATION 09/26/2018 [facility] DATE CREATED AUTHOR AUTHOR'S ORGANIZ ATION 11/25/2018 [facility] DATE CREATED AUTHOR AUTHOR'S ORGANIZ ATION 07/07/2019 [facility] DATE CREATED AUTHOR AUTHOR'S ORGANIZ ATION 04/04/2020 [facility] DATE CREATED AUTHOR AUTHOR'S ORGANIZ ATION 06/08/2021 [place] DATE CREATED AUTHOR AUTHOR'S ORGANIZ ATION 12/19/2022 [facility] DATE CREATED AUTHOR AUTHOR'S ORGANIZ ATION 07/31/2023 [facility] DATE CREATED AUTHOR AUTHOR'S ORGANIZ ATION 08/28/2023 [facility] DATE CREATED AUTHOR AUTHOR'S ORGANIZ ATION 06/17/2024 [facility] DATE CREATED AUTHOR AUTHOR'S ORGANIZ ATION 03/24/2025 [facility] Reason for Visit (unrecogniz ed section and content) Reason Comments Sore Throat Hemoptysis Reason Comments ED Follow-up Reason Comments URI x 1 week Reason Comments Urinary Tract Infection burning with uri nation Reason Comments Dysuria Reason Comments Wrist Pain Lt Reason Comments Foot Pain Reason Comments Facial Pain nose pain Reason Comments injured left hand Reason Comments Establish Care Reason Comments Advice Only vasectomy Status Reason Specialty Diagnoses / Procedures Referre d By Contact Referred To Contact Closed Urology Diagnoses Encounter for vasectomy Lani Thao MD [address] [place] [address] [address] [place] [address] Ammon Damon MD [address] [place] [address] [address] [place] [address] Reason Comments Back Pain Reason Comments Ear Pain right ear pain a few days ago,had a weird feeling in his ear q-tip showed blood Reason Comments Toe Injury Dropped a large tool box on his left foot yesterday, great toe red swollen Reason Comments Epigastric Pain hx heart murmur Reason Comments Eye Swelling Patient states it st arted this pain in the left eye yesterday, still painful to day as well as swollen Reason Comments Eye Pain Left Reason Comments Annual Exam Stated has been havi ng issues with BP being higher than normal (around 190s and up, lower number around 90)Pt stated DM and HTN run in the family Reason Comments Finger Pain Pt reports symptomat ic since 3mo ago: left index finger pain. Pt states does not remember what happened. Reason Comments Annual Exam Dot physical Reason Comments Cough Reason Onset Date Comments Test Results 10/10/2023 Reason Comments Foot Fracture Karthikeyan Quach MD - 09/11/2018 11:59 AM Stephanie Chairez RN - 09/11/2018 11:20 AM Ashley Acosta RN - 12/13/2018 1:47 AM Josh Rhodes MD - 12/13/2018 1:08 AM EDT ED Notes (unrecognized secti on and content) [facility] ED Physician Note: NAME: Lesley Heller 22 y.o. CSN: [id number] PCP: Duncan Gonzalez MD ED Course / Medical Decision Making: Will DC home. Likely has URI. Chest x-ray clear. Strep and flu were negative. D- dimer negative. EKG without acute disease. Patient likely has chest pain that is atypical, related to his URI. He is not hypoxic or tachycardic. He is not febrile. No signs of sepsis. No calf pain or leg swelling. No previous DVT or PE. His hemoptysis that is very minimal may be secondary to his URI. No other issues. Will DC home with close follow-up and [id number] treatment to return for worsening concerning or changing symptoms as discussed . . Clinical Impression: SNOMED CT(R) 1. Acute URI ACUTE UPPER RESPIRATORY INFECTION 2. Hemoptysis HEMOPTYSIS Disposition: Patient is being Discharge to home History: Chief Complaint: Sore Throat and Hemoptysis HPI: The history was obtained from the patient. He is a 22 y.o. male who presents with a chief complaint of Sore Throat and Hemoptysis. HPI patient presents with concerns of sore throat. Patient states that he has had symptoms for 1 week. He has had a sore throat, nonproductive cough and nasal congestion. Denies fever chills. States that he has some mild chest discomfort but he states that he always has chest discomfort this is not new. Denies calf pain or leg swelling. Denies any previous DVT or PE. Patient states that he woke up this morning and was spitting up some blood. Denies any other issues. Came out because of that. PMHx: Past Medical History: Diagnosis Date Back pain Dyslexia Heart murmur Tremors of nervous system PMSx: Past Surgical History: Procedure Laterality Date ADENOIDECTOMY TONSILLECTOMY FAM. Hx: Family History Problem Relation Age of Onset Hypertension Mother Restless legs syndrome Mother SOC. Hx: Social History Socioeconomic History Marital status: Single Spouse name: Not on file Number of children: Not on file Years of education: Not on file Highest education level: Not on file Social Needs Financial resource strain: Not on file Food insecurity - worry: Not on file Food insecurity - inability: Not on file Transportation needs - medical: Not on file Transportation needs - non-medical: Not on file Occupational History Not on file Tobacco Use Smoking status: Current Every Day Smoker Packs/day: 0.50 Types: Cigarettes Smokeless tobacco: Former User Types: Chew Substance and Sexual Activity Alcohol use: Yes Alcohol/week: 0.0 oz Comment: social drinker Drug use: No Sexual activity: Not on file Other Topics Concern Not on file Social History Narrative Not on file MEDs: Previous Medications Medication Sig ibuprofen (ADVIL,MOTRIN) 400 MG tablet Take 400 mg by mouth every 6 (six) hours as needed for pain. ALL: Allergies Allergen Reactions Penicillin G Hives ROS: Review of Systems Constitutional: Negative for chills and fever. HENT: Positive for congestion, rhinorrhea and sore throat. Eyes: Negative for pain and redness. Respiratory: Positive for cough. Negative for shortness of breath. Cardiovascular: Negative for chest pain and palpitations. Gastrointestinal: Negative for abdominal pain, constipation, diarrhea, nausea and vomiting. Genitourinary: Negative for difficulty urinating. Musculoskeletal: Negative for back pain, neck pain and neck stiffness. Skin: Negative for rash. Neurological: Negative for dizziness, syncope, weakness, light-headedness and headaches. All other systems reviewed and are negative. Positives and pertinent negatives as per HPI. All other systems were reviewed and are negative. Physical Exam: Patient Vitals for the past 24 hrs: BP Temp Temp src Pulse Resp SpO2 Height Weight 09/11/18 1344 113/79 60 16 97 % 09/11/18 1124 135/84 98.6 F (37 C) Oral 76 15 99 % 09/11/18 1123 84.7 kg (186 lb 11.7 oz) 09/11/18 1121 5' 11.5 Physical Exam Constitutional: He is oriented to person, place, and time. He appears well- developed and well-nourished. He does not appear ill. No distress. HENT: Head: Normocephalic and atraumatic. Nose: Nose normal. Mouth/Throat: Uvula is midline, oropharynx is clear and moist and mucous membranes are normal. No trismus in the jaw. No uvula swelling. No oropharyngeal exudate, posterior oropharyngeal edema or posterior oropharyngeal erythema. Eyes: Conjunctivae are normal. Right conjunctiva is not injected. Left conjunctiva is not injected. Neck: Normal range of motion. Neck supple. Cardiovascular: Normal rate, regular rhythm, normal heart sounds and intact distal pulses. Exam reveals no gallop and no friction rub. No murmur heard. Pulses: Dorsalis pedis pulses are 2+ on the right side, and 2+ on the left side. Feet are pink and warm with brisk cap refill Pulmonary/Chest: Effort normal and breath sounds normal. No respiratory distress. He has no decreased breath sounds. He has no wheezes. He has no rhonchi. He has no rales. Abdominal: Normal appearance. He exhibits no pulsatile midline mass. There is no tenderness. There is no rigidity, no rebound, no guarding and negative Ríos's sign. Musculoskeletal: No calf pain, redness, asymmetry or abnormal leg swelling. No palpable cords. Negative Homans sign. No signs of DVT. Neurological: He is alert and oriented to person, place, and time. He has normal strength. No sensory deficit. Skin: Skin is warm and intact. He is not diaphoretic. No pallor. Nursing note and vitals reviewed. Laboratory & Radiological Imaging (if done): Labs Reviewed INFLUENZA A,B RAPID MOLECULAR - Normal Narrative: Test Method: Nucleic Acid Amplification RAPID STREP SCREEN - Normal D-DIMER, QUANTITATIVE - Normal Narrative: A D-dimer concentration of <0.5 micrograms per milliliter FEU is considered a low probability for pulmonary embolus (PE) and deep venous thrombosis (DVT). Results of this test should always be interpreted in conjunction with the patient's medical history,clinical presentation, and other findings. Clinical diagnosis should not be based on the results of the D-dimer alone. STREP A CULTURE, THROAT XR Chest AP/PA and LAT Preliminary Result 1. Normal exam. GJT/ges Workstation ID: [id number] Procedures: Procedures Karthikeyan Quach MD ED Physician [facility] Emergency Department (Please note that portions of this note have been completed with a voice recognition software. Efforts were made to correct any errors, but occasionally words are mis-transcribed.) Karthikeyan Quach MD 09/11/18 1351 Patient reports I have had a sore throat for about a week now. This morning I woke up and spit up some blood. I want to make sure that nothing is wrong. Patient reports spitting up bright red blood a few times since waking up today. Alert and oriented x4. Respirations easy. Skin is pink, warm and dry. Ein this encounter Physician at bedside.Dr Chan ED PROVIDER NOTE [facility] EMERGENCY DEPARTMENT NAME: Lesley Heller AGE: 22 y.o. : 1995 VISIT DATE: 12/13/2018 CSN: [id number] PCP: Duncan Gonzalez MD Chief Complaint Patient presents with Foot Pain Right foot pain started at 4am yesterday. History provided by: Patient Foot Injury Location: Foot Time since incident: 1 day Severity: Interfering with activities and severe Injury: no Foot location: R foot Pain details: Duration: 1 day Quality: Aching and throbbing Onset quality: Gradual Severity: Severe Chronicity: New Dislocation: no Foreign body present: No foreign bodies Tetanus status: Up to date Prior injury to area: No Relieved by: Nothing Worsened by: Bearing weight and activity Ineffective treatments: NSAIDs Associated symptoms: tenderness Associated symptoms: no fever Past Medical History: Diagnosis Date Back pain Dyslexia Heart murmur Tremors of nervous system Past Surgical History: Procedure Laterality Date ADENOIDECTOMY TONSILLECTOMY Family History Problem Relation Age of Onset Hypertension Mother Restless legs syndrome Mother Social History Socioeconomic History Marital status: Single Spouse name: Not on file Number of children: Not on file Years of education: Not on file Highest education level: Not on file Social Needs Financial resource strain: Not on file Food insecurity - worry: Not on file Food insecurity - inability: Not on file Transportation needs - medical: Not on file Transportation needs - non-medical: Not on file Occupational History Not on file Tobacco Use Smoking status: Current Every Day Smoker Packs/day: 0.50 Types: Cigarettes Smokeless tobacco: Former User Types: Chew Substance and Sexual Activity Alcohol use: Yes Alcohol/week: 0.0 oz Comment: social drinker Drug use: No Sexual activity: Not on file Other Topics Concern Not on file Social History Narrative Not on file Previous Medications Medication Sig doxycycline hyclate (VIBRA-TABS) 100 MG tablet Take 1 (one) tablet (100 mg total) by mouth 2 (two) times a day . Allergies Allergen Reactions Penicillin G Hives Review of Systems Constitutional: Positive for activity change. Negative for fever. HENT: Negative. Respiratory: Negative. Cardiovascular: Negative. Gastrointestinal: Negative. Genitourinary: Negative. Musculoskeletal: Positive for gait problem. Right foot dorsum pain and redness Hematological: Negative. Psychiatric/Behavioral: Negative. All other systems reviewed and are negative. Patient Vitals for the past 24 hrs: BP Temp Temp src Pulse Resp SpO2 Height Weight 12/13/18 0038 131/80 98 F (36.7 C) Temporal 79 18 99 % 5' 11 85.5 kg (188 lb 7.9 oz) Physical Exam Constitutional: He is oriented to person, place, and time. He appears well- developed and well-nourished. HENT: Head: Normocephalic and atraumatic. Eyes: Conjunctivae and EOM are normal. Pupils are equal, round, and reactive to light. Neck: Normal range of motion. Neck supple. Cardiovascular: Normal rate. Pulmonary/Chest: Effort normal. Abdominal: Soft. He exhibits no distension. There is no tenderness. Musculoskeletal: Normal range of motion. He exhibits tenderness. Right foot erythema dorsum Neurological: He is alert and oriented to person, place, and time. Skin: Skin is warm. Psychiatric: He has a normal mood and affect. His behavior is normal. Nursing note and vitals reviewed. Laboratory & Radiographic Imaging (if done): No results found for this visit on 12/13/18. XR Foot Right 3+ Views (Standard) Final Result No acute bony abnormality. Workstation ID: [id number] Procedures MDM The patient has been informed that they may have pre-hypertension or hypertension based on a blood pressure reading in the Emergency Department. I recommend that the patient call the primary care provider listed on their discharge instructions or a physician of their choice as soon as possible to arrange follow-up in the next 4 weeks for further evaluation of possible pre-hypertension or hypertension. . Clinical Impression: SNOMED CT(R) 1. Cellulitis of foot, right CELLULITIS OF RIGHT FOOT ED Disposition ED Disposition Condition Comment Discharge Stable Lesley Heller discharged to home/self care in stable condition. Follow-up Information 1. Duncan Gonzalez MD. Specialty: Family Medicine [address] [place], [place] [id number] Contact information for after-discharge care Follow-up information has not been specified. New Prescriptions cephALEXin (KEFLEX) 250 MG capsule Take 1 (one) capsule (250 mg total) by mouth 4 (four) times a day for 10 days . Josh Chan MD 12/13/18 0152 To bed 1 with c/o right foot pain that began yesterday at 1600, pain when walking of if he moves it, no pain when not [place] it. Came to ER after finishing his shift at 0001 No swelling, bruising or deformity noted documented in this encounter Pt dc'd with instructions, no new problems/complaints voiced Finger splint applied to left ring finger. circ check without deficit/ neuro intact [facility] EMERGENCY DEPARTMENT PCP - Duncan Gonzalez MD Chief Complaint Patient presents with injured left hand HPI This is Dr Pereira dictating history on Lesley Heller date of service 07/07/2019 . 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 He has complaints of discomfort at the distal tip and no some initial bleeding from a superficial cut on the distal end of the finger as well and subsequent comes in for evaluation. Review of Systems Review of Systems Constitutional: Negative for chills, diaphoresis and fever. HENT: Negative for congestion, ear pain, nosebleeds, rhinorrhea, sore throat, trouble swallowing and voice change. Eyes: Negative. Respiratory: Negative for cough, shortness of breath and wheezing. Cardiovascular: Negative for chest pain, palpitations and leg swelling. Gastrointestinal: Negative for abdominal distention, abdominal pain, blood in stool, constipation, diarrhea and nausea. Endocrine: Negative. Negative for polyuria. Genitourinary: Negative for difficulty urinating, dysuria, flank pain, frequency, genital sores, hematuria and urgency. Musculoskeletal: Negative for arthralgias, back pain, joint swelling, neck pain and neck stiffness. Skin: Negative for rash and wound. Neurological: Negative. Negative for dizziness, tremors, seizures, syncope, facial asymmetry, speech difficulty, weakness, light-headedness, numbness and headaches. Hematological: Negative for adenopathy. Psychiatric/Behavioral: Negative for agitation, behavioral problems, confusion, hallucinations, self-injury, sleep disturbance and suicidal ideas. The patient is not nervous/anxious. All other systems reviewed and are negative. All systems reviewed negative except as mentioned above. Physical Exam Vital Signs During ED Visit (as charted by nursing) Patient Vitals for the past 24 hrs: BP Temp Temp src Pulse SpO2 Height Weight 07/07/19 1239 120/76 99.1 F (37.3 C) Oral (!) 101 100 % 5' 11 72.6 kg (160 lb) Physical Exam Vitals signs and nursing note reviewed. Constitutional: General: He is not in acute distress. Appearance: Normal appearance. He is not ill-appearing, toxic-appearing or diaphoretic. Musculoskeletal: Left hand: He exhibits tenderness and laceration. He exhibits normal range of motion, normal capillary refill, no deformity and no swelling. Normal sensation noted. Normal strength noted. Hands: Neurological: Mental Status: He is alert. Past Medical History Past Medical History: Diagnosis Date Back pain Dyslexia Heart murmur Tremors of nervous system Past Surgical History Past Surgical History: Procedure Laterality Date ADENOIDECTOMY TONSILLECTOMY Family History Family History Problem Relation Age of Onset Hypertension Mother Restless legs syndrome Mother Social History Social History Socioeconomic History Marital status: Single Spouse name: Not on file Number of children: Not on file Years of education: Not on file Highest education level: Not on file Occupational History Not on file Social Needs Financial resource strain: Not on file Food insecurity Worry: Not on file Inability: Not on file Transportation needs Medical: Not on file Non-medical: Not on file Tobacco Use Smoking status: Current Every Day Smoker Packs/day: 0.50 Types: Cigarettes Smokeless tobacco: Former User Types: Chew Substance and Sexual Activity Alcohol use: Yes Alcohol/week: 0.0 standard drinks Comment: social drinker Drug use: No Sexual activity: Not on file Lifestyle Physical activity Days per week: Not on file Minutes per session: Not on file Stress: Not on file Relationships Social connections Talks on phone: Not on file Gets together: Not on file Attends orthodox service: Not on file Active member of club or organization: Not on file Attends meetings of clubs or organizations: Not on file Relationship status: Not on file Other Topics Concern Not on file Social History Narrative Not on file Allergies Allergies Allergen Reactions Penicillin G Hives Medications Patient's Medications New Prescriptions No medications on file Previous Medications FLUTICASONE PROPIONATE (FLONASE ALLERGY RELIEF) 50 MCG/ACTUATION NASAL SPRAY Instill 2 (two) sprays into each nostril daily . Modified Medications No medications on file Discontinued Medications No medications on file MEDICAL DECISION MAKING This is Dr Pereira dictating medical decision making on Lesley Heller date of service 07/07/2019 . This 23-year-old male dropped a transmission on his left ring finger at work this morning and has complaints of discomfort over the distal tip of the finger along with a noted superficial laceration. On clinical exam is got a full range of motion with no obvious joint abnormalities and has some tenderness over the distal tip of the left ring finger with no nail involvement. There is a superficial half centimeter well opposed nonbleeding laceration on the thenar aspect of the distal finger. He has full range of motion with no neurovascular deficits. X-ray does not show any obvious fracture. After initial evaluation the the wound was cleansed and Neosporin dressing was applied and a fingertip splint was applied for comfort and protection will follow diagnosis of contusion laceration left ring finger No results found for this visit on 07/07/19. Radiographic Imaging (if any) During ED Visit XR Finger(s) Left 2+ Views (Results Pending) Medications Ordered/Given During ED Visit Medications - No data to display Procedures Randolph Pereira MD 07/07/19 1309 Pt washed his hands with soap and water, small superficial laceration noted to side of left ring finger. Then neosporin ointment/bandaid applied. No active bleeding noted. 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 documented in this encounter EMERGENCY DEPARTMENT ENCOUNTER CHIEF COMPLAINT Back Pain HPI Lesley Heller is a 24 y.o. male who presents to the emergency department from home for low back pain. Patient has had the pain for approximately 1 week. he reports an aching sensation worse with movement. It is paraspinal lumbar region. He says that he was doing some mechanical work and exchanged a motor symptoms started shortly after this. He denies dysuria, hematuria, nausea, vomiting, numbness, tingling, weakness in lower extremities. Denies midline back pain. Denies loss of bowel or bladder control. Has not taken anything for symptoms. PAST MEDICAL HISTORY No past medical history on file. SURGICAL HISTORY No past surgical history on file. CURRENT MEDICATIONS Current Outpatient Medications Medication Sig albuterol 108 (90 Base) MCG/ACT Aero Soln inhaler Inhale 2 puffs every 4 hours as needed for Wheezing. cyclobenzaprine 10 MG tablet Take 1 tablet by mouth 3 times daily as needed for Muscle spasms. naproxen 500 MG tablet Take 1 tablet by mouth 2 times daily as needed. ALLERGIES Allergies Allergen Reactions Penicillins FAMILY HISTORY No family history on file. SOCIAL HISTORY Social History Socioeconomic History Marital status: Spouse name: Not on file Number of children: Not on file Years of education: Not on file Highest education level: Not on file Occupational History Not on file Tobacco Use Smoking status: Not on file Substance and Sexual Activity Alcohol use: Not on file Drug use: Not on file Sexual activity: Not on file Other Topics Concern Not on file Social History Narrative Not on file Social Determinants of Health Financial Resource Strain: Difficulty of Paying Living Expenses: Not on file Food Insecurity: Worried About Running Out of Food in the Last Year: Not on file Ran Out of Food in the Last Year: Not on file Transportation Needs: Lack of Transportation (Medical): Not on file Lack of Transportation (Non-Medical): Not on file Physical Activity: Days of Exercise per Week: Not on file Minutes of Exercise per Session: Not on file Stress: Feeling of Stress : Not on file Social Connections: Frequency of Communication with Friends and Family: Not on file Frequency of Social Gatherings with Friends and Family: Not on file Attends Catholic Services: Not on file Active Member of Clubs or Organizations: Not on file Attends Club or Organization Meetings: Not on file Marital Status: Not on file Intimate Partner Violence: Fear of Current or Ex-Partner: Not on file Emotionally Abused: Not on file Physically Abused: Not on file Sexually Abused: Not on file REVIEW OF SYSTEMS General: Denies fevers, chills, malaise HEENT: denies vision changes, eye pain or drainage sore throat, congestion, ear pain, ear drainage Pulmonary: Denies cough, shortness of breath, wheezing Cardiovascular: denies chest pain, palpitations, lightheadedness Gastrointestinal: denies abdominal pain, nausea, vomiting, diarrhea, melena or hematochezia : denies dysuria, hematuria, flank pain Neurological: denies headache, numbness, tingling, weakness, loss of bowel or bladder control Endocrine: denies polyuria, polydipsia, heat or cold intolerance Muskuloskeletal: denies joint pain. Low back pain Skin: denies rashes or sores Psychiatric: denies depression or anxiety Remainder of ROS reviewed and are negative PHYSICAL EXAM VITAL SIGNS: BP 131/82 Pulse 88 Temp 98.2 F (36.8 C) Resp 16 Ht 1.727 m (5' 8) SpO2 97% BMI 29.80 kg/m Vitals: 11/18/20212011/18/20212111/18/20 2220 BP: 142/82 131/82 Pulse: 91 88 Resp: 16 16 Temp: 98.2 degrees F (36.8 degrees C) SpO2: 97% 97% Height: 1.727 m (5' 8) Constitutional: Well developed, Well nourished, Non-toxic appearance. HENT: Normocephalic, Atraumatic. Bilateral external ears normal. Neck: No tenderness, Supple, Normal range of motion No stridor. Eyes: Pupils equal, sclera anicteric Respiratory: Normal breath sounds, No respiratory distress. No wheezing, No chest tenderness. Cardiovascular: Normal heart rate, Normal rhythm, No murmurs, No rubs, No gallops. GI: Soft, No tenderness, Bowel sounds normal. No pulsatile masses. Back: inspection is normal. No CVA tenderness. Midline back pain. No pain over percussion of spinous processes. He does have some mild tenderness to palpation bilateral paraspinal lumbar region Extremities: No tenderness to palpation or major deformities, Good range of motion in all major joints noted. No edema, Intact distal pulses, No cyanosis, No clubbing. Skin: Warm, Dry, No erythema, No rash. Neurologic: Alert & oriented x 3, No focal deficits noted. Normal sensory function, Normal motor function. Deep tendon reflexes R2+ no saddle anesthesia Psychiatric: Affect normal, Judgment normal, Mood normal. ED Interventions/labs: No results found for this visit on 11/18/20. No orders to display ED Course: Vitals reviewed Medical Decision Making Lesley Heller is a 24 y.o. male who presents with lumbar strain. He has no midline back pain no neurologic complaints on exam no abdominal pain. Low suspicion for acute cord compression, cauda equina syndrome, epidural abscess, intra- abdominal pathology, kidney stone. Given a prescription for Flexeril. Instructed return for new or worsening symptoms or any additional concerns. Impression: Lumbar strain Dispo: She discharged home Alicia Ribera MD This note dictated using [employer] medical voice recognition software. Attempts at proofreading were made, but errors may occasionally still occur. Alicia Ribera MD 11/19/20 9870 C/o lower back pain for the past week. Denies injury. Denies lose of bowel or bladder control. documented in this encounter Care Teams (unrecognized sec tion and content) Gas Usage Meter Clerk Relationship Specialty Start Date End Date Ludwig Gannon DO [address] [place] [address] PCP - General Family Medicine 02/15/21 Gas Usage Meter Clerk Relationship Specialty Start Date End Date Ludwig Gannon DO [address] [place] [address] PCP - General Family Medicine 02/15/21 Gas Usage Meter Clerk Relationship Specialty Start Date End Date Dami Abdi MD [address] [place] [address] [address] [place] [address] PCP - General Family Medicine 02/13/21 Gas Usage Meter Clerk Relationship Specialty Start Date End Date Dami Abdi MD [address] [place] [address] [address] [place] [id number] PCP - General Family Medicine 02/13/21 Gas Usage Meter Clerk Relationship Specialty Start Date End Date Dami Abdi MD [address] [place] [address] [address] [place] [address] PCP - General Family Medicine 02/13/21 Gas Usage Meter Clerk Relationship Specialty Start Date End Date Dami Abdi MD [address] [place] [address] [address] [place] [address] PCP - General Family Medicine 02/13/21 Gas Usage Meter Clerk Relationship Specialty Start Date End Date Ludwig Gannon DO [address] [place] [address] PCP - General Family Medicine 02/15/21 Gas Usage Meter Clerk Relationship Specialty Start Date End Date Ludwig Gannon DO [address] [place] [address] PCP - General Family Medicine 02/15/21 Gas Usage Meter Clerk Relationship Specialty Start Date End Date Dami Abdi MD [address] [place] [address] [address] [facility] [place] [address] PCP - General Family Medicine 02/13/21 Gas Usage Meter Clerk Relationship Specialty Start Date End Date Dami Abdi MD [address] [place] [address] [place] [address] PCP - General Family Medicine 02/13/21 Gas Usage Meter Clerk Relationship Specialty Start Date End Date Ludwig Gannon DO [address] [place] [address] [address] [facility] [place] [address] PCP - General Family Medicine 02/15/21 Gas Usage Meter Clerk Relationship Specialty Start Date End Date Ludwig Gannon DO [address] [place] [address] [address] [facility] [place] [address] PCP - General Family Medicine 02/15/21 Gas Usage Meter Clerk Relationship Specialty Start Date End Date Dami Abdi MD [address] [place] [address] [address] [facility] [place] [address] PCP - General Family Medicine 02/13/21 Gas Usage Meter Clerk Relationship Specialty Start Date End Date Pcp, [place] [address] PCP - General 07/28/23 Gas Usage Meter Clerk Relationship Specialty Start Date End Date No, Physician [facility] PCP - General 02/19/24 Scheduled Active and Recently Administ ered Medications (unrecognized section and content) Medication Order 02/08/2022 02/09/2022 02/10/2022 fluorescein ophthalmic 1 mg strip 1 strip, Left Eye, ONCE, 1 dose, On Ricarda 02/10/22 at [id number] (Canceled Entry - Provider: System Discharge - Comment: Automatically canceled at discontinue of medication order) tetracaine (PONTOCAINE) 0.5 % ophthalmic solution 1 drop 1 drop, Left Eye, ONCE, 1 dose, On Ricarda 02/10/22 at [id number] (Canceled Entry - Provider: System Discharge - Comment: Automatically canceled at discontinue of medication order) FOR RECORDS PERTAINING TO PATIENTS WHO ARE OR HAVE BEEN ENROLLED IN A CHEMICAL DEPENDENCY/SUBSTANCEABUSE PROGRAM, SOME INFORMATION MAY BE OMITTED. This clinical summary was aggregated from multiple sources. Caution should be exercised in using it in the provision of clinical care. This summary normalizes information from multiple sources, and as a consequence, information in this document may materially change the coding, format and clinical context of patient data. In addition, data may be omitted in some cases. CLINICAL DECISIONS SHOULD BE BASED ON THE PRIMARY CLINICAL RECORDS. [employer] [facility]. provides no warranty or guarantee of the accuracy or completeness of information in this document.
[2025-07-23 20:28] LABS: Anion Gap 13 (5-15); BUN 15 mg/dL (4-19); BUN/Creat Ratio 17.4 RATIO (10-20); Calcium,Total 10.1 mg/dL (7.6-11.0); Carbon Dioxide 25.9 mmol/L (21.0-32.0); Chloride 102 mmol/L (98-108); Glucose 105 mg/dL (70-99); Potassium 3.8 mmol/L (3.3-5.1); Troponin T High Sensitivity < 6 ng/L (<=22)
[2025-07-23 20:30] VITALS: BP 130/94; PULSE 68; RESP 18; O2SAT 99
--- NOTE | 2025-07-23 20:34 | EDS_ITS ---
HPI History of Present Illness Chief Complaint: Chest Pain Informant: patient Onset/Context/Timing Onset: Yesterday Activity at onset: sudden Timing: Continuous Quality: Positive for Sharp Location: Left Chest Worsened By: Breathing Relieved By: - (Relaxing) Associated Symptoms: Positive for Palpitations; Negative for Nausea, Vomiting, Diaphoresis, Dyspnea, Cough, Fever, Lightheadedness or Acid Reflux Narrative Narrative: Patient presents with chest pain that began yesterday. Patient began rather suddenly. Patient states it has been constant. Patient describes as sharp. Patient states it is over the left chest. Patient states it is worse with deep breathing. Patient states it is better with relaxing. Patient admits to some palpitations. Patient denies any shortness of breath or cough. Patient denies any nausea or vomiting. Patient denies any diaphoresis or lightheadedness. CVD Risk Factors: Positive for Smoking; Negative for Hypertension, Diabetes, Hypercholesterolemia or Family History 1' </=55 PE Risk Factors: Negative for Recent Travel/Surgery, Recent Immobilization, Prior DVT or PE, Cancer or OCP + Smoking + >/=35 PFSH PFSH Medical History (Updated 07/23/25 @ 22:[address] Meir Friend, DO) Migraine headache Occasional tremors Medical History no medical history Home Medications ?Medication ?Instructions ?Recorded ?Last Taken ?Type NK 07/23/25 Unknown History Allergy/AdvReac Type Severity Reaction Status Date / Time Penicillins Allergy Hives Verified 07/23/25 19:26 Surgical History (Updated 07/23/25 @ 22:[address] Meir Friend, DO) History of tonsillectomy and adenoidectomy Surgical History no surgical history Social History Smoking Status: Never smoker ROS ROS ED Constitutional Constitutional ED: Denies chills or fever(s) Eyes Eyes: Denies blurry vision or change in vision ENT ENT ED: Reports rhinorrhea; Denies sore throat Cardiovascular Cardiovascular: Reports chest pain and palpitations Respiratory/Chest Respiratory/Chest: Denies cough or dyspnea Gastrointestinal Gastrointestinal: Denies nausea or vomiting Genitourinary Genitourinary ED: Denies dysuria or hematuria Musculoskeletal Musculoskeletal: Reports back pain; Denies neck pain Integumentary Denies abscess or rash Neurologic Neurologic: Denies headache(s) or weakness Allergic/Immunologic Allergic/Immunologic ED: Denies mouth swelling or urticaria EXAM Physical Exam Const Vital Signs: 07/23/25 19:25 07/23/25 19:51 07/23/25 19:51 Temperature 98.3 F Temperature Source Oral Pulse Rate 75 Respiratory Rate 16 Respiratory Effort Normal Blood Pressure 131/83 H Blood Pressure Mean 99 Pulse Ox 99 Oxygen Delivery Method Room Air 07/23/25 20:30 Temperature Temperature Source Pulse Rate 68 Respiratory Rate 18 Respiratory Effort Blood Pressure 130/94 H Blood Pressure Mean 106 Pulse Ox 99 Oxygen Delivery Method Positive well nourished and well developed Constitutional Narrative: BMI is 30.6. General Appearance ED: well developed and NAD HEENT Reports moist mucous membranes Neck supple and no JVD Resp normal respiratory effort and clear to auscultation bilaterally Cardio regular rate and regular rhythm GI soft to palpation, non-tender and non-distended Neuro oriented x3, CN's II-XII intact bilaterally and no sensory deficits noted Sensorium / Orientation: awake and alert Motor Exam: strength 5/5 throughout Psych mental status grossly normal Heart Score History: Slightly/Non-Suspicious ECG: Normal Age: </= 45 years Risk Factors: No Risk Factors Troponin: </= Normal Limit Score: 0 MDM MDM MDM Narrative Medical decision making narrative: Differential diagnosis includes cardiac dysrhythmia, cardiac ischemia, pneumonia, bronchitis, musculoskeletal pain, gastroesophageal reflux disease, and anxiety. EKG will be obtained to assess for cardiac dysrhythmia and cardiac ischemia. Chest x-ray will be obtained to assess for pneumonia or bronchitis. CBC will be obtained to assess for leukocytosis and anemia. Basic metabolic profile will be obtained to assess for electrolyte abnormality renal function. High-sensitivity troponin will be obtained to assess for cardiac ischemia. 2- hour repeat high-sensitivity troponin will be obtained to assess for ongoing cardiac ischemia. Lab Data Attestation: I reviewed the patient's lab results. Lab results narrative: CBC was reviewed and was within normal limits. Basic metabolic profile was reviewed and was within normal limits. Initial high-sensitivity troponin was reviewed and was normal at less than 6. 2-hour repeat high-sensitivity troponin was reviewed and was also less than 6. Labs: Laboratory Results - last 24 hr 07/23/25 19:41 WBC 8.6 RBC 5.59 Hgb 15.3 Hct 46.3 MCV 82.8 MCH 27.4 MCHC 33.0 RDW Std Deviation 38.8 RDW Coeff of [place] 12.9 Plt Count 275 MPV 10.2 Immature Gran % (Auto) 0.500 Neut % (Auto) 70.1 H Lymph % (Auto) 19.2 [place] % (Auto) 6.9 Eos % (Auto) 2.4 Baso % (Auto) 0.9 Absolute Neuts (auto) 6.0 Absolute Lymphs (auto) 1.65 Nucleated RBC % 0 Sodium 141 Potassium 3.8 Chloride 102 Carbon Dioxide 25.9 Anion Gap 13 BUN 15 Creatinine 0.88 Estim Creat Clear Calc 133.50 Est GFR (MDRD) Non-Af 118 BUN/Creatinine Ratio 17.4 Glucose 105 H Calcium 10.1 Troponin T High Sens < 6 Radiography Chest X-Ray - ED: 1 View, Read by ED Physician, Read by Radiologist and No Acute Disease Diagnostic Testing: Clinical Impression(s) from Imaging Studies Chest X-Ray 07/23/25 19:50 IMPRESSION: No acute cardiopulmonary disease. Reading Location: [facility] Portable 1 view chest x-ray was obtained. On my independent interpretation, lung alvarez are clear. There is normal cardiac silhouette. Bony thorax is normal. There is no acute process noted. Radiologist also interpreted the x- ray and agrees. EKG Initial EKG: Attestation: I personally reviewed and interpreted this EKG as follows: Interpretation: Sinus Rhythm (68) and No Acute Injury Pattern Comments: EKG was obtained. On my independent interpretation, it showed a normal sinus rhythm with a rate of 68. [place] interval was slightly low at 84. QRS interval was normal at 118 ms. QTc interval was normal at 423 ms. [place] was normal. There are no acute ST or T wave changes. Prior: Unchanged (07/15/2025) Treatment and Re-Evaluation :: Patient was given aspirin here. Patient was advised of his findings. Patient was instructed to follow-up with his primary care physician in 5 to 7 days for further evaluation. Patient understood and was agreeable with the plan. All questions were answered. Discharge Plan Triage Chief Complaint: Chest Pain ED Provider: Meir Friend Dx/Rx/DC Orders Clinical Impression: Chest pain Instructions: ED Chest Pain, Uncertain Cause Prescriptions: No Action NK Primary Care Provider: Care Physician,No Primary Referrals: Karthikeyan Jameson MD [Med Staff - Active Staff, Family Practice] - 5-7 Days Care Physician,No Primary [Primary Care Provider, Medical] Print Language: Maori Disposition Disposition: Home, Self Care
[2025-07-23 21:45] VITALS: BP 137/84; PULSE 62; RESP 16; O2SAT 99
[2025-07-23 22:06] VITALS: BP 127/88; PULSE 61; RESP 16; O2SAT 100
[2025-07-23 22:24] LABS: Troponin T High Sens 2 HR < 6 ng/L (<=22)
[2025-07-23 22:42] VITALS: BP 127/88; PULSE 66; RESP 16; TEMP 36.6; O2SAT 99
== END 2025-07-23 22:44 | disposition home or self-care (01) ==
PROVIDERS: Emergency Provider Emergency Medicine; Visit Provider Emergency Medicine
DX: R07.9 Chest pain, unspecified (principal); R00.2 Palpitations; M54.9 Dorsalgia, unspecified
CPT/HCPCS: 71045; 80048; 84484; 85025; 93005; 99284; A4216